=== PATIENT | male | born 1950 | race Caucasian/White ===

== ENCOUNTER 2024-01-22 03:50 | Observation (INO) | payer OTHER ==
[2024-01-22] MEDS ORDERED: KETOROLAC 30 MG/ML INJ ONE ×2 (04:11→12:51)
[2024-01-22] MEDS ORDERED: ONDANSETRON 4 MG/2 ML VIAL ONE ×2 (04:11→12:51)
[2024-01-22] MEDS ORDERED: CEFTRIAXONE 1000 MG/VIAL ONE (04:11)
[2024-01-22] MEDS ORDERED: NA CHLORIDE 0.9% 50 ML ONE (04:12)
[2024-01-22] MEDS ORDERED: NA CHLORIDE 0.9% 1,000 ML ONE (04:12)
[2024-01-22] MEDS ORDERED: METRONIDAZOLE 500mg IVPB 500 MG/100 ML BAG IV ONE (04:12)
[2024-01-22] MEDS ORDERED: MORPHINE 4 MG/ML SYR ONE ×2 (04:12→04:50)
[2024-01-22 04:16] LABS: Absolute Basophils 0.1 K/uL (0-0.5); Absolute Eosinophils 0.2 K/uL (0-0.5); Absolute Lymphocytes (CBC) 2.1 K/uL (0.7-4.9); Absolute Neutrophil 8.1 K/uL (1.8-8.0); Basophils % 0.5 % (0-1.3); Hematocrit 38.7 % (39.6-49.0); Lymphocytes % 18.4 % (15.3-44.8); MCH 30.8 pg (27.0-35.0); MCHC 33.7 g/dL (32.0-36.0); MCV 91.3 fL (80-100); MPV 6.6 fL (7.6-11.3); Monocytes % 8.6 % (3.3-12.3); Neutrophils % 70.5 % (41.7-73.7); Platelets 353 thou/uL (152-406); RBC Red Blood Cell Count 4.23 M/uL (4.33-5.43); Red Cell Distribution Width 13.6 % (12.1-15.2)
[2024-01-22 04:34] LABS: Albumin/Globulin Ratio 1.2 (1.1-1.8); Bilirubin Total 0.3 mg/dL (0.2-1.0); Globulin 3.4 g/dL (2.3-3.5); Protein, Total 7.4 g/dL (6.4-8.2)
--- NOTE | 2024-01-22 06:43 | RAD REPORT ---
EXAM: CT Abdomen and Pelvis With Intravenous Contrast CLINICAL HISTORY: The patient is 73 years old and is Male; Abd pain. TECHNIQUE: Axial computed tomography images of the abdomen and pelvis with intravenous contrast. Sagittal and coronal reformatted images were created and reviewed. This CT exam was performed using one or more of the following dose reduction techniques: automated exposure control, adjustmen t of the mA and/or kV according to patient size, and/or use of iterative reconstruction technique. COMPARISON: CT Abdomen pelvis 08/16/2022 - Report only. FINDINGS: Lung bases: Unremarkable. No mass. No consolidation. ABDOMEN: Liver: Hypodense lesions in the right hepatic lobe, incompletely characterized. The largest measu res 1.5 cm in the inferior right hepatic lobe. 1.5 cm left hepatic simple cyst. Gallbladder and bile ducts: 2.4 cm calcified stone in the gallbladder. Distended gallbladder with pericholecystic fluid. No ductal dilation. Pancreas: No findings to suggest acute pancreatitis. No mass visualized. No ductal dilation. Spleen: Unremarkable. No splenomegaly. Adrenals: Unremarkable. No mass. Kidneys and ureters: Unremarkable. No solid mass. No hydronephrosis. Stomach and bowel: Colonic diverticulosis. No bowel dilatation or obstruction. No bowel wall thickening. PELVIS: Appendix: The visualized appendix is normal. No pericecal inflammation to suggest acute appendici tis. Bladder: Unremarkable. No mass. Reproductive: Unremarkable as visualized. ABDOMEN and PELVIS: Intraperitoneal space: Unremarkable. No free air. No significant fluid collection. 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 Degenerative changes in lumbar spine. No a cute fracture visualized. No dislocation. Soft tissues: Unremarkable. Vasculature: Unremarkable. No abdominal aortic aneurysm. Lymph nodes: No pathologically enlarged lymph nodes. IMPRESSION: 1. Findings consistent with acute cholecystitis. 2. Hypodense lesions in the right hepatic lobe, incompletely characterized. The largest measures 1. 5 cm in the inferior right hepatic lobe. 3. Colonic diverticulosis. 4. Additional non-emergent findings as above. Electronically signed by: Lula Woodson MD 01/22/2024 06:08 AM [facility] [place] Due to temporary technical issues with the PACS/LegalJump reporting system, reports are being chloe d by the in-house radiologist without review as a courtesy to ensure prompt reporting the interpreting radiologist is fully responsible for the content of the report. Transcribed Date/Time: 01/22/2024 6:43 AM
--- NOTE | 2024-01-22 07:33 | EDPHYS ---
Physician Documentation [facility] Name: Joel Nieves Age: 73 yrs Sex: Male : 1950 Arrival Date: 01/22/2024 Time: 03:50 Bed 15 Private MD: ED Physician Frandy Aguilera HPI: 01/21 03:54 This 73 yrs old or Male presents to ER via Unassigned sp4 with complaints of Abdominal Pain. 07:32 73-year-old male presents with acute onset right upper quadrant abdominal pain. 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 - Infectious Disease History:: Denies. - Social history:: Smoking status: Patient reports the use of cigarette tobacco products, cigars, Patient uses alcohol, occasionally. Patient/guardian denies using street drugs. - Family history:: not pertinent. ROS: 07:32 Constitutional: Negative for fever, chills, and weight loss, sp4 07:32 Constitutional: Positive acute right upper quadrant abdominal pain 07:32 All other systems are negative, Exam: 07:32 Constitutional: This is a well developed, well nourished patient who is awake, alert, sp4 and in no acute distress. Head/Face: Normocephalic, atraumatic. Eyes: Pupils equal round and reactive to light, extra-ocular motions intact. Lids and lashes normal. Conjunctiva and sclera are not injected. Cornea within normal limits. Periorbital areas with no swelling, redness, or edema. ENT: Nares patent. No nasal discharge, no septal abnormalities noted. Tympanic membranes are normal and external auditory canals are clear. Oropharynx with no redness, swelling, or masses, exudates, or evidence of obstruction, uvula midline. Mucous membranes moist. Neck: Trachea midline, no thyromegaly or masses palpated, and no cervical lymphadenopathy. Supple, full range of motion without nuchal rigidity, or vertebral point tenderness. Chest/axilla: Normal chest wall appearance and motion. Nontender with no deformity. No lesions are appreciated. Cardiovascular: Regular rate and rhythm with a normal S1 and S2. No gallops, murmurs, or rubs. Normal PMI, no JVD. No pulse deficits. Respiratory: Lungs have equal breath sounds bilaterally, clear to auscultation and percussion. No rales, rhonchi or wheezes noted. No increased work of breathing, no retractions or nasal flaring. Abdomen/GI: Soft, with normal bowel sounds. No distension or tympany. No guarding or rebound. No evidence of tenderness throughout. Back: No spinal tenderness. No costovertebral tenderness. Skin: Warm, dry with normal turgor. Normal color with no rashes, no lesions, and no evidence of cellulitis. MS/ Extremity: Pulses equal, no cyanosis. Neurovascular intact. Full, normal range of motion. Neuro: Awake and alert, GCS 15, oriented to person, place, time, and situation. Cranial nerves II-XII grossly intact. Motor strength 5/5 in all extremities. Sensory grossly intact. Psych: Awake, alert, with orientation to person, place and time. Behavior, mood, and affect are within normal limits Vital Signs: 04:03 BP 188 / 81; Pulse 81; Resp 17 S; Temp 97.7(O); Pulse Ox 99% on R/A; Weight 70.31 kg lg3 (R); Height 5 ft. 10 in. (R); Pain 10/10; 05:45 BP 135 / 67; Pulse 78; Resp 17; Pulse Ox 98% on R/A; dd2 06:25 BP 121 / 66; Pulse 67; Resp 15; Pulse Ox 96% on R/A; dd2 07:15 BP 133 / 73; Pulse 65; Resp 17; Pulse Ox 96% ; ko1 04:03 Body Mass Index 22.24 (70.31 kg, 177.8 cm) lg3 04:03 Pain Scale: Adult lg3 Madyson Coma Score: 04:36 Eye Response: spontaneous(4). Motor Response: obeys commands(6). Verbal Response: dd2 oriented(5). Total: 15. 07:32 Eye Response: spontaneous(4). Motor Response: obeys commands(6). Verbal Response: sp4 oriented(5). Total: 15. MDM: 03:54 Medical Screening Exam initiated sp4 07:21 ED course: EXAM: CTAbdomen and Pelvis With Intravenous Contrast CLINICAL HISTORY: The sp4 patient is 73 years old and is Male; Abd pain. TECHNIQUE: Axial computed tomography images of the abdomen and pelvis with intravenous contrast. Sagittal and coronal reformatted images were created and reviewed. This CT exam was performed using one or more of the following dose reduction techniques: automated exposure control, adjustment of the mA and/or kV according to patient size, and/or use of iterative reconstruction technique. COMPARISON: CTAbdomen pelvis 08/16/2022 - Report only. FINDINGS: Lung bases: Unremarkable. No mass. No consolidation. ABDOMEN: Liver: Hypodense lesions in the right hepatic lobe, incompletely characterized. The largest measures 1.5 cm in the inferior right hepatic lobe. 1.5 cm left hepatic simple cyst. Gallbladder and bile ducts: 2.4 cm calcified stone in the gallbladder. Distended gallbladder with pericholecystic fluid. No ductal dilation. Pancreas: No findings to suggest acute pancreatitis. No mass visualized. No ductal dilation. Spleen: Unremarkable. No splenomegaly. Adrenals: Unremarkable. No mass. Kidneys and ureters: Unremarkable. No solid mass. No hydronephrosis. Stomach and bowel: Colonic diverticulosis. No bowel dilatation or obstruction. No bowel wall thickening. PELVIS: Appendix: The visualized appendix is normal. No pericecal inflammation to suggest acute appendicitis. Bladder: Unremarkable. No mass. Reproductive: Unremarkable as visualized. ABDOMEN and PELVIS: Intraperitoneal space: Unremarkable. No free air. No significant fluid collection. 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 Degenerative changes in lumbar spine. No acute fracture visualized. No dislocation. Soft tissues: Unremarkable. Vasculature: Unremarkable. No abdominal aortic aneurysm. Lymph nodes: No pathologically enlarged lymph nodes. IMPRESSION: 1. Findings consistent with acute cholecystitis. 2. Hypodense lesions in the right hepatic lobe, incompletely characterized. The largest measures 1.5 cm in the inferior right hepatic lobe. 3. Colonic diverticulosis. 4. Additional non-emergent findings as above. Electronically signed by: Lula Woodson MD 01/22/2024 06:08 AM . 07:34 Differential diagnosis: appendicitis, cholecystitis, Cholelithiasis, diverticulitis, sp4 gastritis. Data reviewed: vital signs, nurses notes, lab test result(s), radiologic studies, CT scan. Consideration of Admission/Observation Patient was admitted/placed on observation. Escalation of care including admission/observation considered. Management of patient was discussed with the following: Hospitalist: Kavin EASON . Collection Systems Worker: Yohna EASON . ED course: CT positive for acute cholecystitis. Will request admission with surgical consult. 01/21 03:54 Order name: CBC with Diff; Complete Time: 04:43 sp4 01/21 03:54 Order name: CMP; Complete Time: 04:43 sp4 01/21 03:54 Order name: Lipase; Complete Time: 04:43 sp4 01/21 03:54 Order name: Urinalysis w/ reflexes sp4 01/21 07:57 Order name: Urinalysis w/ reflexes EDMS 01/21 07:57 Order name: CBC with Automated Diff EDMS 01/21 07:57 Order name: CBC with Automated Diff EDMS 01/21 07:57 Order name: Comprehensive Metabolic Panel EDMS 01/21 07:57 Order name: Comprehensive Metabolic Panel EDMS 01/21 07:57 Order name: Magnesium EDMS 01/21 07:57 Order name: Magnesium EDMS 01/21 03:54 Order name: CT Abd/Pelvis - IV Contrast Only sp4 01/21 07:54 Order name: CONS Physician Consult EDMS 01/21 03:54 Order name: IV Saline Lock; Complete Time: 04:16 sp4 01/21 03:54 Order name: Labs collected and sent; Complete Time: 04:16 sp4 01/21 07:34 Order name: NPO; Complete Time: 07:39 sp4 Administered Medications: 04:20 Drug: morphine IVP or IV 4 mg IVP once over 4 mins Route: IVP; Infused Over: 4 mins; dd2 Site: right antecubital; 04:35 Follow up: Response: No adverse reaction dd2 04:35 Follow up: Response: No adverse reaction dd2 04:20 Drug: Ketorolac IVP 15 mg IVP once Route: IVP; Site: right antecubital; dd2 04:35 Follow up: Response: No adverse reaction dd2 04:20 Drug: NS 0.9% IV 1000 ml IV at 1000 ml once; to be given as a bolus over 60 minutes dd2 Route: IV; Rate: 1000 ml; Site: right antecubital; 04:35 Follow up: Response: No adverse reaction dd2 05:20 Follow up: IV Status: Completed infusion; IV Intake: 1000ml dd2 04:20 Drug: Rocephin - Rocephin (cefTRIAXone) IVPB 1 grams IVPB once over 30 mins; (mix in 50 dd2 mL NS) Route: IVPB; Infused Over: 30 mins; Site: right antecubital; 04:35 Follow up: Response: No adverse reaction dd2 04:50 Follow up: IV Status: Completed infusion; IV Intake: 60ml dd2 04:20 Drug: Ondansetron IVP 4 mg IVP once; over 2 minutes Route: IVP; Site: right antecubital;dd2 04:35 Follow up: Response: No adverse reaction dd2 05:00 Drug: metroNIDAZOLE IVPB 500 mg 100 ml IVPB at 200 ml/hr once over 30 mins Volume: 100 dd2 ml; Route: IVPB; Rate: 200 ml/hr; Infused Over: 30 mins; Site: right antecubital; 05:15 Follow up: Response: No adverse reaction dd2 05:30 Follow up: IV Status: Completed infusion; IV Intake: 100ml dd2 05:00 Drug: morphine IVP or IV 4 mg IVP once over 4 mins Route: IVP; Infused Over: 4 mins; dd2 Site: right antecubital; 05:15 Follow up: Response: No adverse reaction dd2 Disposition Summary: 01/22/24 07:32 Hospitalization Ordered Notes: Hospitalization Status: Inpatient Admission sp4 Provider: Chalino Vale [facility] sp[facility] Condition: Stable sp4 Problem: new sp4 Symptoms: have improved sp4 Bed/Room Type: Standard sp4 Room Assignment: 409(01/22/24 08:11) sp Diagnosis - Acute cholecystitis sp4 Forms: - Medication Reconciliation Form sp4 - SBAR form sp4 - Leadership Thank You Letter sp4 Signatures: Dispatcher [employer] EDMS Trina Vela Lacie, RN RN [email or web address] Frandy Aguilera MD MD sp4 SARAH KENT RN RN dd2 Corrections: (The following items were deleted from the chart) 08:11 07:32 sp4 sp
--- NOTE | 2024-01-22 07:33 | ER ---
Nurse's Notes [facility] Name: Joel Nieves Age: 73 yrs Sex: Male : 1950 Arrival Date: 01/22/2024 Time: 03:50 Bed 15 Private MD: Diagnosis: Acute cholecystitis Presentation: 01/21 04:03 Chief complaint: Patient states: middle abdominal pain 11/30 beginning yesterday lg3 afternoon and worsening. denies N/V/D. history of diverticulitis. Coronavirus screen: Client denies travel out of the [place] in the last 14 days. At this time, the client does not indicate any symptoms associated with coronavirus-19. Ebola Screen: No symptoms or risks identified at this time. Initial Sepsis Screen: Does the patient meet any 2 criteria? No. Patient's initial sepsis screen is negative. Does the patient have a suspected source of infection? No. Patient's initial sepsis screen is negative. Risk Assessment: Do you want to hurt yourself or someone else? Patient reports no desire to harm self or others. Onset of symptoms was January 21, 2024. 04:03 Method Of Arrival: Ambulatory lg3 04:03 Acuity: ANABELLA 3 lg3 Triage Assessment: 04:06 General: Appears in no apparent distress. uncomfortable, Behavior is calm, cooperative. lg3 Pain: Complains of pain in abdomen Pain currently is 10 out of 10 on a pain scale. Noted to be grimacing, guarding, resistant to movement. EENT: No deficits noted. No signs and/or symptoms were reported regarding the EENT system. Neuro: No deficits noted. Banks Agitation-Sedation Scale (RASS): 0 - Alert and Calm Level of Consciousness is awake, alert, obeys commands, Oriented to person, place, time, situation. Cardiovascular: No deficits noted. Denies chest pain, shortness of breath, Capillary refill < 3 seconds Clubbing of nail beds is absent JVD is absent Patient's skin is warm and dry. Respiratory: No deficits noted. Airway is patent Respiratory effort is even, unlabored, Respiratory pattern is regular, symmetrical. GI: Abdomen is flat, non-distended, Reports lower abdominal pain, upper abdominal pain. : No signs and/or symptoms were reported regarding the genitourinary system. Derm: No deficits noted. No signs and/or symptoms reported regarding the dermatologic system. Skin is intact, is healthy with good turgor, Skin is dry, Skin is normal, Skin temperature is warm. Musculoskeletal: No signs and/or symptoms reported regarding the musculoskeletal system. Amputation of L BKA. Circulation, motion, and sensation intact. Range of motion: intact in all extremities. 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 - Infectious Disease History:: Denies. - Social history:: Smoking status: Patient reports the use of cigarette tobacco products, cigars, Patient uses alcohol, occasionally. Patient/guardian denies using street drugs. - Family history:: not pertinent. Screenin:36 [facility] ED Fall Risk Assessment (Adult) History of falling in the last 3 months, dd2 including since admission No falls in past 3 months (0 pts) Confusion or Disorientation No (0 pts) Intoxicated or Sedated No (0 pts) Impaired Gait No (0 pts) Mobility Assist Device Used No (0 pt) Altered Elimination No (0 pt) Score/Fall Risk Level 0 - 2 = Low Risk Oriented to surroundings, Maintained a safe environment, Educated pt \T\ family on fall prevention, incl call for assistance when getting out of bed, Assessed \T\ reinforced patient's understanding of fall precautions, Hourly rounding (assess needs \T\ fall precautionary measures) done. Abuse screen: Denies threats or abuse. Nutritional screening: No deficits noted. Tuberculosis screening: No symptoms or risk factors identified. Assessment: 04:36 Reassessment: SEE TRIAGE ASSESSMENT FOR FULL ASSESSMENT. dd2 Vital Signs: 04:03 BP 188 / 81; Pulse 81; Resp 17 S; Temp 97.7(O); Pulse Ox 99% on R/A; Weight 70.31 kg lg3 (R); Height 5 ft. 10 in. (R); Pain 10/10; 05:45 BP 135 / 67; Pulse 78; Resp 17; Pulse Ox 98% on R/A; dd2 06:25 BP 121 / 66; Pulse 67; Resp 15; Pulse Ox 96% on R/A; dd2 07:15 BP 133 / 73; Pulse 65; Resp 17; Pulse Ox 96% ; ko1 04:03 Body Mass Index 22.24 (70.31 kg, 177.8 cm) lg3 04:03 Pain Scale: Adult lg3 Madyson Coma Score: 04:36 Eye Response: spontaneous(4). Motor Response: obeys commands(6). Verbal Response: dd2 oriented(5). Total: 15. 07:32 Eye Response: spontaneous(4). Motor Response: obeys commands(6). Verbal Response: sp4 oriented(5). Total: 15. ED Course: 03:51 Patient arrived in ED. jj6 03:54 Frandy Aguilera MD is Attending Physician. sp4 03:57 SARAH KENT RN is Primary Nurse. dd2 04:06 Triage completed. lg3 04:06 Arm band placed on right wrist. lg3 04:09 Inserted saline lock: 20 gauge in right antecubital area, using aseptic technique. oe Blood collected. Flushed with 10 mL NS. 04:16 CBC with Diff Sent. lg3 04:16 CMP Sent. lg3 04:16 Lipase Sent. lg3 04:36 Patient has correct armband on for positive identification. Placed in gown. Bed in low dd2 position. Call light in reach. Side rails up X 1. Provided Education on: CALL LIGHT, MEDICATIONS, LABS, RADIOLOGY. Client placed on continuous cardiac and pulse oximetry monitoring. NIBP monitoring applied. Door closed. Noise minimized. Warm blanket given. Pillow given. Verbal reassurance given. 04:36 No provider procedures requiring assistance completed. Initial lab(s) drawn, by ED dd2 staff, sent to lab. Patient maintains SpO2 saturation greater than 95% on room air. 05:05 CT Abd/Pelvis - IV Contrast Only In Process Unspecified. EDMS 07:32 Chalino Vale MD is Hospitalizing Provider. sp4 08:21 Patient admitted, IV remains in place. ko1 09:06 Urinalysis w/ reflexes Sent. ko1 Administered Medications: 04:20 Drug: morphine IVP or IV 4 mg IVP once over 4 mins Route: IVP; Infused Over: 4 mins; dd2 Site: right antecubital; 04:35 Follow up: Response: No adverse reaction dd2 04:35 Follow up: Response: No adverse reaction dd2 04:20 Drug: Ketorolac IVP 15 mg IVP once Route: IVP; Site: right antecubital; dd2 04:35 Follow up: Response: No adverse reaction dd2 04:20 Drug: NS 0.9% IV 1000 ml IV at 1000 ml once; to be given as a bolus over 60 minutes dd2 Route: IV; Rate: 1000 ml; Site: right antecubital; 04:35 Follow up: Response: No adverse reaction dd2 05:20 Follow up: IV Status: Completed infusion; IV Intake: 1000ml dd2 04:20 Drug: Rocephin - Rocephin (cefTRIAXone) IVPB 1 grams IVPB once over 30 mins; (mix in 50 dd2 mL NS) Route: IVPB; Infused Over: 30 mins; Site: right antecubital; 04:35 Follow up: Response: No adverse reaction dd2 04:50 Follow up: IV Status: Completed infusion; IV Intake: 60ml dd2 04:20 Drug: Ondansetron IVP 4 mg IVP once; over 2 minutes Route: IVP; Site: right antecubital;dd2 04:35 Follow up: Response: No adverse reaction dd2 05:00 Drug: metroNIDAZOLE IVPB 500 mg 100 ml IVPB at 200 ml/hr once over 30 mins Volume: 100 dd2 ml; Route: IVPB; Rate: 200 ml/hr; Infused Over: 30 mins; Site: right antecubital; 05:15 Follow up: Response: No adverse reaction dd2 05:30 Follow up: IV Status: Completed infusion; IV Intake: 100ml dd2 05:00 Drug: morphine IVP or IV 4 mg IVP once over 4 mins Route: IVP; Infused Over: 4 mins; dd2 Site: right antecubital; 05:15 Follow up: Response: No adverse reaction dd2 Medication: 04:36 VIS not applicable for this client. dd2 Intake: 04:50 IV: 60ml; Total: 60ml. dd2 05:20 IV: 1000ml; Total: 1060ml. dd2 05:30 IV: 100ml; Total: 1160ml. dd2 Outcome: 07:32 Decision to Hospitalize by Provider. sp4 08:21 Admitted to Med/surg accompanied by tech, via wheelchair, room 409, with chart, koAntonio 08:21 Condition: stable 08:21 Instructed on the need for admit, 09:18 Patient left the ED. ko1 Signatures: Dispatcher [employer] EDMS Ibrahima Hanson Lacie, RN RN lg3 Alecia Bostonj6 Ny Rodriguez RN RN ko1 Frandy Aguilera MD MD sp4 SARAH KENT RN RN dd2
--- NOTE | 2024-01-22 07:51 | P.HP ---
Certification for Inpatient Patient admitted to: Observation <KanchanTresa - Last Filed: 01/22/24 15:24> Patient History Date of Service: 01/22/24 Reason for admission: Acute cholecystitis History of Present Illness: 73-year-old with a past medical history of hypertension, hyperlipidemia, presents to the emergency room with abdominal pain. He reports right upper quadrant abdominal pain, he reports daily tobacco use with cigars, daily alcohol use with 3 beers daily. He reports abdominal pain started last night, worse with p.o. intake. No reported nausea vomiting diarrhea. ER evaluation mild leukocytosis WBCs 11.40, mild microcytic anemia 13.0, 38.7, no left shift, mild hyponatremia 130, UA within normal limits. CT reveals acute cholecystitis, plan to admit for acute cholecystitis with surgery to consult. - Past Medical/Surgical History -: Hypertension -: Hyperlipidemia -: Left BKA - Family History Father -: Cancer Notes: Lung CA <Tresa Hemphill - Last Filed: 01/22/24 15:24> Date of Service: 01/22/24 <Chalino Vale - Last Filed: 01/23/24 01:45> Allergies No Known Allergies Allergy (Verified 01/22/24 10:08) Home Medications: Albuterol Sulfate [Albuterol Sulfate Hfa] 2 puff IH Q6HP PRN 01/22/24 Budesonide/Glycopyr/Formoterol [Breztri Aerosphere Inhaler] 2 puff IH BID 01/22/24 Codeine/APAP [Tylenol #3*] 1 tab PO TID PRN 01/22/24 Hydrocodone Bit/Acetaminophen [Hydrocodon-Acetaminoph 7.5-325] 1 tab PO DAILY PRN 01/22/24 Montelukast [Singulair] 10 mg PO DAILY 01/22/24 lisinopriL [Lisinopril] 20 mg PO DAILY 01/22/24 Review of Systems 10-point ROS is otherwise unremarkable General: As per HPI <Tresa Hemphill - Last Filed: 01/22/24 15:24> Physical Examination - Physical Exam General: Alert, In no apparent distress, Oriented x3 HEENT: Atraumatic, Normocephalic Neck: Supple, 2+ carotid pulse no bruit, JVD not distended Respiratory: Clear to auscultation bilaterally, Normal air movement Cardiovascular: No edema, Normal pulses, Regular rate/rhythm, Normal S1 S2 Gastrointestinal: Normal bowel sounds, Other (Right upper quadrant abdominal pain worse with palpitation) Musculoskeletal: No clubbing, No swelling Integumentary: No breakdown, No significant lesion Neurological: Normal speech, Normal strength at 5/5 x4 extr, Sensation intact, Cranial nerves 3-12 intact - Studies Laboratory Data (last 24 hrs) 01/22/24 01/22/24 04:08 04:08 WBC 11.40 H Hgb 13.0 L Hct 38.7 L Plt Count 353 Sodium 130 L Potassium 4.0 BUN 14 Creatinine 0.72 Glucose 113 H Total Bilirubin 0.3 AST 30 ALT 48 Alkaline Phosphatase 92 Lipase 30 <Tresa Hemphill - Last Filed: 01/22/24 15:24> - Studies Laboratory Data (last 24 hrs) 01/22/24 01/22/24 04:08 04:08 WBC 11.40 H Hgb 13.0 L Hct 38.7 L Plt Count 353 Sodium 130 L Potassium 4.0 BUN 14 Creatinine 0.72 Glucose 113 H Total Bilirubin 0.3 AST 30 ALT 48 Alkaline Phosphatase 92 Lipase 30 <Chalino Vale - Last Filed: 01/23/24 01:45> Assessment and Plan - Problems (Diagnosis) (1) Acute cholecystitis Current Visit: Yes Status: Acute (2) Abdominal pain Current Visit: Yes Status: Acute (3) Hypertension Current Visit: Yes Status: Chronic (4) Hyperlipidemia Current Visit: Yes Status: Chronic Qualifiers: Hyperlipidemia type: unspecified Qualified Code(s): E78.5 - Hyperlipidemia, unspecified (5) Tobacco use Current Visit: Yes Status: Acute - Plan Assessment plan Admit to MedSurg, Surgery consult, n.p.o., for surgery to eval IV fluids, IV antibiotics, as needed analgesics, as needed antiemetics Resume home meds for hypertension, hyperlipidemia Full code DVT SCDs Diet advance per surgery Disposition Home independent Discharge Plan: Home - Advance Directives Does patient have a Living Will: No Does patient have a Durable POA for Healthcare: No - Code Status/Comfort Care Code Status: Full Code Critical Care: No Time Spent Managing Pts Care (In Minutes): 55 <Tresa Hemphill - Last Filed: 01/22/24 15:24> Date of Service: 01/22/24 Patient was seen and examined. Events of the last 24 hours have been noted. Spoke with with [facility] regarding patient's clinical picture after evaluating and examining the patient independently. I performed a substantial part of the MDM during this patient's care today. I personally made or approved the documented management plan and acknowledge its risk of complications. I agree with the findings and documentation provided in the MONTEZ's notes. Plan to proceed with laparoscopic cholecystectomy. If patient does well then possible discharge in a.m. Surgery consulted. Patient low risk for cardiopulmonary complications. History of COPD and on inhaler therapy. Monitor in the perioperative period closely. Possible discharge in a.m. <Chalino Vale - Last Filed: 01/23/24 01:45>
[2024-01-22] MEDS ORDERED: ACETAMINOPHEN 500 MG TAB PO PRN (07:53)
[2024-01-22] MEDS ORDERED: ONDANSETRON 4 MG/2 ML VIAL IV PRN (07:53)
[2024-01-22] MEDS ORDERED: SODIUM CHLORIDE 0.9% 10ML INJ IV PRN (08:03)
[2024-01-22 09:20] LABS: Specific Gravity > 1.030 (1.005-1.030); Urine Bilirubin NEGATIVE (Negative); Urine Blood Negative (Negative); Urine Clarity Clear (Clear); Urine Color Light-Yellow (Yellow); Urine Glucose NEGATIVE (Negative); Urine Ketones NEGATIVE (Negative); Urine Microscopic Reflex YN NO UMIC; Urine Nitrite NEGATIVE (Negative); Urine Protein NEGATIVE (Negative); Urine Urobilinogen Normal (Normal); Urine pH 5.5 (5.0-7.0)
[2024-01-22] MEDS: NA CHLORIDE 0.9% 1,000 ML IV SCH (09:55)
[2024-01-22] MEDS: PIPER TAZO 3.375 GM in NA CHLORIDE 0.9% 100 ML IV SCH (09:55)
[2024-01-22] MEDS: PANTOPRAZOLE 40 MG INJ IVP SCH (09:55)
[2024-01-22] MEDS: HYDROMORPHONE HCL 0.5 MG/0.5 ML INJ IV PRN (09:56)
[2024-01-22] MEDS: HYDROMORPHONE HCL 1 MG/ML INJ IV ONE (12:43)
[2024-01-22] MEDS ORDERED: MIDAZOLAM HCL 2 MG/2 ML INJ ONE (12:50)
[2024-01-22] MEDS ORDERED: FENTANYL CITR 100 MCG/2 ML ONE (12:50)
[2024-01-22] MEDS ORDERED: propofoL 200 MG/20 ML VIAL IV ONE (12:50)
[2024-01-22] MEDS ORDERED: LIDOCAINE 1% MPF 5 ML VIAL ONE (12:51)
[2024-01-22] MEDS ORDERED: dexAMETHasone 4 MG/ML VIAL ONE (12:51)
[2024-01-22] MEDS ORDERED: ROCURONIUM 50 MG/5 ML VIAL IV ONE (12:55)
[2024-01-22] MEDS: LIDOCAINE HCL/EPINEPHRINE 20 ML MDV ONE (13:49)
[2024-01-22] MEDS: Ringers Lactate 1,000 ML IV ONE (14:26)
[2024-01-22] MEDS: SUGAMMADEX SODIUM 200 MG/2 ML VIAL IV ONE (14:27)
--- NOTE | 2024-01-22 14:37 | P.OP ---
Preoperative diagnosis: Acute Calculous Cholecystitis Postoperative diagnosis: Acute Calculous Cholecystitis Primary procedure: Laparoscopic Cholecystectomy with ICG Cholangiography Anesthesia: GETA + Local Estimated blood loss: <10cc Specimen: Gallbladder Findings: Distended Hydropic Gallbladder Complications: None Implants: Quin Hemostatic Matrix Powder Transferred to: Recovery Room Condition: Good
[2024-01-22] MEDS ORDERED: HYDROCODONE/APAP 5/325 MG TAB PO PRN (14:42)
[2024-01-22] MEDS: MEPERIDINE HCL 25 MG/ML SYR ONE (15:02)
[2024-01-22] MEDS: HYDROMORPHONE HCL 1 MG/ML INJ ONE (15:03)
--- NOTE | 2024-01-22 15:19 | CON ---
Date of Consultation: 01/22/2024 Brief History Of Present Illness: The patient is a 73-year-old white male who presents with a histor y of abdominal pain beginning in the epigastric and right upper quadrant area on Tuesday. He had intermittent episodes of worsening abdominal pain. He ate very little over the course of the holiday and got progressively worse. The pain became intractable and ultimately buckled him ove r. He ultimately was brought to the emergency room where an examination was performed. He had sever e significant right upper quadrant abdominal pain and a positive Hennessy sign. He additionally had im aging performed during his workup. He states he has had low-grade nausea, inability to tolerate p.o. , decreased p.o. intake, and the abdominal pain has now radiated through to his back in the epigastri c region as well with some radiation down to the right lower quadrant. He has never had similar epis odes before in the past. No sick contacts. No recent travel. Past Medical History: Significant for hypertension, hypercholesterolemia. Past Surgical History: Negative. Home Medications: Include lisinopril. Allergies: NO KNOWN DRUG ALLERGIES. Social History: The patient has occasional use of cigarettes, uses alcohol recreationally. Denies r ecreational drug use. Review of Systems: Ten-point review of systems other than HPI, denies. Physical Examination: Vital Signs: At time of examination, his blood pressure 147/77, pulse 68, respiratory rate 18, tempe rature 98.1, SpO2 98% on room air. General: He is awake, alert, oriented. Psychiatric: Appropriate. Conversive. HEENT: Normocephalic. Sclerae anicteric. Mucous membranes are moist. Oropharynx clear. Neck: Supple. No JVD. Chest: Normal expansion excursion. Cardiovascular: Regular rate and rhythm. Pulmonary: Clear to auscultation bilaterally. Abdomen: Soft with positive right upper quadrant tenderness to palpation. Positive guarding. Posit guerda rebound. Positive Hennessy sign. The radiation of pain is down to the right iliac crest through t he back. He has tenderness on palpation of his back as well in the same vicinity. No hernias apprec iated. Extremities: No clubbing, cyanosis, or edema. Skin: Warm and dry. Laboratory Data: Revealed white blood cell count of 11.4, hemoglobin 13.0, hematocrit of 38.7, plate let count is 353. His sodium 130, potassium 4.0, chloride 101, carbon dioxide is 23, BUN 14, creatin ine 0.7, glucose is 113, calcium 9.6, total bilirubin 0.3, AST 30, ALT 48, alkaline phosphatase is 92 , lipase is 30. Urinalysis was essentially negative. He had imaging performed, which included a CT of the abdomen and pelvis, officially read as findings consistent with acute cholecystitis. There is a 2.4 cm calcified gallstone in the gallbladder with a distended gallbladder with pericholecystic fl uid. There are multiple hyperdense lesion of the right hepatic lobe, large measuring 1.5 cm in the i nferior right hepatic lobe which appeared to be simple cysts. He has colonic diverticulosis. Assessment And Plan: This is a 73-year-old male who comes in with signs and symptoms of acute calcul ous cholecystitis. 1.IV fluid hydration. 2.Antibiotic coverage. 3.I explained the risks, benefits, alternatives laparoscopic possible open cholecystectomy including but not limited to bleeding, infection, damage to the surrounding tissue, need for further operation or procedures, injury to bile ducts, intestines. We will be using indocyanine green cholangiography that he could have a reaction to this and other unforeseen complications in the perioperative period including anesthesia related and non-anesthesia related issues including but not limited to blood cl ots, heart attack, strokes and other unforeseen complications. Patient displayed understanding of the plan and agreed to proceed as indicated. TOI/MEGAN Voice ID: [id number] Report ID: [id number]
--- NOTE | 2024-01-22 18:19 | OP ---
Date of Procedure: 01/22/2024 Surgeon: Yahir Almanzar MD, Preoperative Diagnosis: Acute calculous cholecystitis. Postoperative Diagnosis: Acute calculous cholecystitis. Procedure Performed: Laparoscopic cholecystectomy with indocyanine green cholangiography. Anesthesia: General endotracheal plus local with 1% lidocaine with epinephrine. Estimated Blood Loss: Less than 10 cc. Specimen: Gallbladder. Findings: 1.Distended hydropic gallbladder. 2.Significant dense adhesions. 3.Stone impacted near the neck of gallbladder. Complications: None. Implants: Quin hemostatic matrix powder. Disposition: The patient is transferred to recovery room in good condition. Procedure In Detail: After informed was consent was obtained, patient was brought to the operating r oom, prepped and draped in the usual sterile fashion. After adequate anesthesia was achieved, I anes thetized an area in the supraumbilical position down to subcutaneous tissue. A 5-mm 0-degree optical trocar was introduced in abdomen without incident or complication. Insufflation was obtained to 15 mmHg at this time. There was no injury to vital structures upon entering the abdomen. 2 additional trocars were placed, one in the epigastrium, one in the right upper quadrant. Both of these were sim ilarly anesthetized and sharply incised. A 5 mm trocar was placed under direct vision without incide nt or complication. The umbilical trocar was then upsized to a 12 mm under direct visualization with out incident or complication. At this point, patient was positioned in the head up right-side up pos ition. Ratcheted grasper was attempted to grasp the patient's gallbladder, which was found to be enc ased in omentum. Bovie electrocautery was used to take down the omental attachments off the anterior surface of the gallbladder. At this point, I attempted to grasp the gallbladder, which was then aga in unsuccessful due to the tension of it. I then placed a decompression needle into the fundus of th e gallbladder, decompressing a hydropic appearing fluid, which was brought out and allowed for graspi ng the gallbladder. At this point, I grasped the gallbladder, placed it towards the patient's right shoulder. Dissection continued down the Chiquita pouch of the gallbladder, where it was noted that t he duodenum was in close apposition to the Chiquita pouch of the gallbladder. This was taken down us ing combination of blunt dissection and minimal electrocautery to allow for separation of these struc tures. At this point, I dissected down the Chiquita pouch of the gallbladder to dissect 2 structures , identified both cystic duct and cystic artery. At this point, critical view of safety was obtained with the liver in the posterior window. I then performed indocyanine green cholangiography at this point and confirmed the anatomic structures. There was a somewhat shortened cystic duct, but adequat e length at this point. I then placed double titanium clips, double on the proximal side and singly on the distal side of both cystic duct and cystic artery. At this point, Endo Aaliyah were used to li gate these 2 structures. The gallbladder was then removed from the hepatic fossa without incident or complication. It did require some fulguration at the midportion of the liver bed at this point. Ga llbladder was then placed in EndoCatch bag, removed from the umbilical trocar after dilating the umbi licus as the axilla was larger than the usual incision. At this point, the gallbladder was sent off for pathologic examination. At this point, the abdomen was re-insufflated at the point. The abdomen was copiously irrigated. Hemostatic maneuvers were required on the lateral aspect of the mid to dis ray hepatic fossa. Electrocautery was performed at this point with good hemostasis. I then irrigate d the area copiously and good hemostasis was achieved. Clips were found to be in good anatomic posit ion. There was evidence of leakage using indocyanine green cholangiography. At the end of procedure , clips were found to be in good anatomic position. At this point, I suctioned out the remaining eff luent, sprayed Quin hemostatic powder into the subhepatic space, and the patient was positioned edilberto k in a neutral position. At this point, I dissected down the remaining effluent. The umbilical troc ar site was then closed using a Branden-Trisha suture passer with a #1 Vicryl interrupted fashion wi th good approximation of tissues. The abdomen was then desufflated under direct visualization withou t incident or complication. Remainder of trocars were removed. All skin incisions were then copious ly irrigated and closed with a 4-0 Monocryl in a running fashion. Dermabond was placed over top. Th e patient tolerated the procedure well without incident or complication, transferred to PACU in good condition. All counts were correct at the end of the case. TK/MODL Voice ID: [id number] Report ID: [id number]
[2024-01-22 22:26] VITALS: O2SAT 99
[2024-01-22] MEDS: ZOLPIDEM TARTRATE 5 MG TABLET PO PRN (22:29)
[2024-01-23 05:55] LABS: Absolute Lymphocytes (CBC) 0.9 K/uL (0.7-4.9); Absolute Monocytes 1.1 K/uL (0.1-1.3); Basophils % 0.1 % (0-1.3); Hematocrit 31.6 % (39.6-49.0); Hemoglobin 10.3 g/dL (13.6-17.9); Lymphocytes % 7.8 % (15.3-44.8); MCH 30.4 pg (27.0-35.0); MCHC 32.7 g/dL (32.0-36.0); MPV 7.3 fL (7.6-11.3); Monocytes % 9.3 % (3.3-12.3); Neutrophils % 82.8 % (41.7-73.7); Platelets 276 thou/uL (152-406); Red Cell Distribution Width 13.2 % (12.1-15.2)
[2024-01-23 06:30] LABS: Albumin 2.8 g/dL (3.4-5.0); Albumin/Globulin Ratio 0.9 (1.1-1.8); Anion Gap 9.4 mEq/L (5.0-15.0); Bilirubin Total 0.5 mg/dL (0.2-1.0); Magnesium 1.9 mg/dL (1.6-2.4); Potassium 4.4 mEq/L (3.5-5.1); Protein, Total 5.8 g/dL (6.4-8.2)
--- NOTE | 2024-01-23 08:57 | P.DS ---
Admission Date: 01/22/24 Discharge Date: 01/23/24 Disposition: ROUTINE DISCHARGE Discharge Condition: GOOD Reason for Admission: Acute cholecystitis Brief History of Present Illness: 73-year-old with a past medical history of hypertension, hyperlipidemia, presents to the emergency room with right upper quadrant abdominal pain for 3 days. He was diagnosed with a calculus acute calculus cholecystitis by CT scan and admitted on general medical floor on January 22, 2024. Hospital Course: He underwent laparoscopic cholecystectomy with intraoperative cholangiogram On the same day. His postoperative course was uneventful, his bowel bowel activity returned, he was tolerating oral diet well, his abdominal pain was reasonably controlled with oral analgesics. Patient was discharged home the following day. He is to follow-up with general surgeon after discharge. Discharge diagnosis #1 acute calculous cholecystitis #2 stable COPD Vital Signs/Physical Exam: Temp Pulse Resp BP Pulse Ox 97.5 F 99 H 16 144/76 H 99 01/23/24 04:00 01/23/24 04:00 01/23/24 04:08 01/23/24 04:00 01/23/24 04:08 Other Physical/Emotional Findings: - Physical Exam. General: Not acutely ill looking, in no apparent distress,. HEENT: Normocephalic, atraumatic,. Neck: Supple, without JVD or goiter or thyroid mass. Respiratory: Normal breathing effort, clear to auscultation bilaterally, no crackles no wheezing or rhonchi. Cardiovascular: Regular rate and rhythm, S1, S2 normal, no murmur no gallop. Gastrointestinal: Normal bowel sounds, nondistended, mild tender, dried and clean laparoscopic operation wounds. No masses, no hepatosplenomegaly. Musculoskeletal: No clubbing, No peripheral edema. Integumentary: No rashes. Lymphatics: No axilla or cervical lymphadenopathy. Neurology; alert awake oriented x3, no focal neurologic deficit Laboratory Data at Discharge: WBC 12.10 thou/uL (4.3-10.9) H 01/23/24 05:23 Hgb 10.3 g/dL (13.6-17.9) L D 01/23/24 05:23 Hct 31.6 % (39.6-49.0) L 01/23/24 05:23 Plt Count 276 thou/uL (152-406) 01/23/24 05:23 Sodium 134 mEq/L (136-145) L D 01/23/24 05:23 Potassium 4.4 mEq/L (3.5-5.1) 01/23/24 05:23 BUN 7 mg/dL (7-18) 01/23/24 05:23 Creatinine 0.70 mg/dL (0.70-1.30) 01/23/24 05:23 Glucose 119 mg/dL (74-106) H 01/23/24 05:23 Magnesium 1.9 mg/dL (1.6-2.4) 01/23/24 05:23 Total Bilirubin 0.5 mg/dL (0.2-1.0) 01/23/24 05:23 AST 71 U/L (15-37) H 01/23/24 05:23 ALT 75 U/L (16-61) H 01/23/24 05:23 Alkaline Phosphatase 76 U/L (45-117) 01/23/24 05:23 Lipase 30 U/L (13-75) 01/22/24 04:08 Home Medications: Albuterol Sulfate [Albuterol Sulfate Hfa] 2 puff IH Q6HP PRN 01/22/24 Budesonide/Glycopyr/Formoterol [Breztri Aerosphere Inhaler] 2 puff IH BID 01/22/24 Codeine/APAP [Tylenol #3*] 1 tab PO TID PRN 01/22/24 Hydrocodone Bit/Acetaminophen [Hydrocodon-Acetaminoph 7.5-325] 1 tab PO DAILY PRN 01/22/24 Montelukast [Singulair*] 10 mg PO DAILY 01/22/24 lisinopriL [Lisinopril] 20 mg PO DAILY 01/22/24 Ondansetron [Ondansetron Odt] 4 mg PO TID PRN 5 Days #15 01/23/24 New Medications: Ondansetron [Ondansetron Odt] 4 mg PO TID PRN 5 Days #15 PRN Reason: Nausea / Vomiting Diet: [place] Activity: No lifting more than 10 lbs Followup: Yahir Almanzar MD [ACTIVE - CAN ADMIT] - 1-2 Weeks Ilya Swain MD [Primary Care Provider] - 1-2 Weeks
[2024-01-23 09:12] VITALS: BP 124/63; TEMP 97.9; BMI 34.4
== END 2024-01-23 10:15 | disposition home or self-care (01) ==
LOC: ER 03:50 → 2ND 07:50 → 4TH 07:50 → UNDOADMOB 07:50
PROVIDERS: ADMIT Hospitalist; ATTEND Internal Medicine
PROC: BF50200 Other Imaging of Bile Ducts using Fluorescing Agent, Indocyanine Green Dye, Intraoperative (ICD-10-PCS; 2024-01-22)
PROC: 0FT44ZZ Resection of Gallbladder, Percutaneous Endoscopic Approach (ICD-10-PCS; principal; 2024-01-22 13:30)
DX: K80.00 Calculus of gallbladder with acute cholecystitis without obstruction (principal); I10 Essential (primary) hypertension; E78.5 Hyperlipidemia, unspecified; F17.210 Nicotine dependence, cigarettes, uncomplicated; F10.90 Alcohol use, unspecified, uncomplicated; E78.00 Pure hypercholesterolemia, unspecified
CPT/HCPCS: 96365; 96367; 85025 ×2; 36415 ×2; 83735; 88304; 81003; 83690; 80053 ×2; 74177; 96375; 99285; 47563; Q9967; J2704; J1100; J2003; J2543 ×3; J2470 ×3; J2250; J3010; J2175; J1171 ×5; J2405 ×2; G0378 ×4; J7120; J7030 ×3; J0696

== ENCOUNTER 2024-05-18 12:48 | Emergency (ER) | payer OTHER ==
--- OUTSIDE RECORDS SUMMARY | 2024-05-18 13:02 | XMS REPORT | Continuity of Care Document ---
Author Name Unknown Address [address] [facility] [address] [place] [address] Organization [facility] [place] Address [address] [facility] [place] [address] Care Team Providers Care Primary Care Pediatrician Name Role Phone Valentino Patricio MD Primary Care Physician SERENA CENTENO Attending Clinician Unavailable ILYA SWAIN Attending Clinician Unavailable Ilya Swain MD Attending Clinician + [phone] Sandy Gonzalez LVN Attending Clinician Unavailabl e Lab, Ang - Db Attending Clinician Unavailable Kenton EASON, Sendkarolina K.H. Attending Clinician + [phone] ROSSI HAINES K.H. Attending Clinician Unavailriki Haines MD Sendkarolina K.H. Attending Clinician [phone] Lab, Ang Griselda Coet Attending Clinician Unavailable Ilya Swain MD Attending Clinician + [phone] Alanis Crow Attending Clinician + [phone] ALANIS GARRETT Attending Clinician Unavailable Doctor Unassigned, [place] Attending Clinician U ANA Talbot Attending Clinician Ana La MD Attending Clinician [phone], [facility] Attending Clinician Unavailable NICA MATT Attending Clinician Unavailable Sheila Griffin MD Attending Clinician [phone] Nica Matt MD Attending Clinician +[phone] Darius Be Attending Clinician [phone] Unknown, Attending Attending Clinician Unavailab DARIUS Christianson Attending Clinician Unavailable Gab SHEFFIELD, Ayaka Attending Clinician [phone] AYAKA DE GUZMAN Attending Clinician Unavailable DEMETRIO SPARROW Attending Clinician Unavailable Love SENIOR ACCOUNTING SPECIALIST, Simon S Attending Clinician Maximo Ellis AIRPORT SHUTTLE DRIVER, Paula Attending Clinician [phone] PAULA ELLIS Attending Clinician Unavailable Provider, [facility] Attending Clinician Un available Pob, [facility] Main Attending Clinician Unavaildorinda HAINES SENDKAROLINA K.HTano Admitting Clinician UnavailNICA Schaeffer Admitting Clinician Unavailable Nica Matt MD Admitting Clinician [phone] Payers Payer Name Policy Type Policy Number Effective Date Expirati on Date Source Problems Condition Name Condition Details Condition Category Status Onset Date Resolution Date Last Treatment Date Treating Clinician Comments Source Elevated brain natriureti c peptide (BNP) level Elevated brain natriureti c peptide (BNP) level Disease Active 2022-02 00:00: 00 [facility] Acute on chronic diastolic CHF (congestiv e heart failure), NYHA class 3 Acute on chronic diastolic CHF (congestiv e heart failure), NYHA class 3 Disease Active 2022-02 00:00: 00 [facility] Dyslipidem ia Dyslipidem ia Disease Active 2022-02 00:00: 00 [facility] Elevated brain natriureti c peptide (BNP) level Elevated brain natriureti c peptide (BNP) level Disease Active 2022-02 00:00: 00 [facility] Dyspnea, unspecifie d type Dyspnea, unspecifie d type Disease Active 2022-02 00:00: 00 [facility] Hx of diverticul itis of colon Hx of diverticul itis of colon Disease Active 2022-02 00:00: 00 [facility] Melena Melena Disease Active 2022-02 00:00: 00 [facility] Allergy, initial encounter Allergy, initial encounter Disease Active 2022-02 00:00: 00 [facility] Lower abdominal pain Lower abdominal pain Disease Active 2022-02 00:00: 00 [facility] Cold sore Cold sore Disease Active 07-05 00:00: 00 [facility] Mild hyperchole sterolemia Mild hyperchole sterolemia Disease Active 2021-02 012 00:00: 00 [facility] Elevated ALT measuremen t Elevated ALT measuremen t Disease Active 05-05 00:00: 00 [facility] Essential hypertensi on Essential hypertensi on Disease Active 07-24 00:00: 00 [facility] Abnormal ECG Abnormal ECG Disease Active 07-24 00:00: 00 [facility] Bronchitis Bronchitis Disease Active 10-15 00:00: 00 [facility] Other seasonal allergic rhinitis Other seasonal allergic rhinitis Disease Active 10-15 00:00: 00 [facility] Depression Depression Disease Active 2014-02 00:00: 00 [facility] CERVICAL DISC DISPLACEME NT,STENOSI S CERVICAL DISC DISPLACEME NT,STENOSI S Active 05/29/2014 [facility] Diagnosis Active 05-29 00:00: 00 2014-06-14 14:56:00 [place] Amputation above-knee (procedure ) Amputation above-knee (procedure ) Resolved Problem 06/18/2014 [facility] Problem Resolve d 2014-06-18 00:16:06 [place] Cervical spine - painful on movement (finding) Cervical spine - painful on movement (finding) Resolved Problem 06/18/2014 [facility] Problem Resolve d 2014-06-18 00:16:06 [place] ADMINISTRT VE ENCOUNT NOS ADMINISTRT VE ENCOUNT NOS Active [facility] Diagnosis Active 2014-06-14 14:56:00 [place] Allergies, Adverse Reactions, Alerts Allergy Name Allergy Type Status Severity Reaction(s) Onset Date Inactive Date Treating Clinician Comments Source NO KNOWN ALLERGIE S Drug Class Active [facility] Social History Social Habit Start Date Stop Date Quantity Comments Source Gender identity [facility] Sexual orientation [facility] History SDOH Alcohol Frequency [facility] History SDOH Alcohol Std Drinks [facility] History SDOH Alcohol Binge [facility] Alcoholic beverage intake 2024-04-11 00:00:00 2024-04-11 00:00:00 .29 /d [facility] Tobacco use and exposure 2023-11-09 00:00:00 2023-11-09 00:00:00 Smokeless tobacco non-user [facility] Alcohol intake 2023-06-23 00:00:00 2023-06-23 00:00:00 .29 /d [facility] History of Social function 2023-06-16 00:00:00 2023-06-16 00:00:00 [facility] Exposure to SARS-CoV-2 (event) 2022-07-03 00:00:00 2022-07-13 09:03:00 Not sure [facility] Alcohol Comment 2014-12-27 00:00:00 2014-12-27 00:00:00 daily [facility] Social History 2014-06-14 20:02:37 2014-06-14 20:02:37 [facility] History of tobacco use 2014-02-26 00:00:00 Cigarette Smoker [facility] Sex assigned at 1950 00:00:00 1950 00:00:00 [facility] Smoking Status Start Date Stop Date Source Ex-smoker 2023-11-09 00:00:00 2023-11-09 00[facility]00[facility] Ordered Medication Name Filled Medication Name Start Date Stop Date Current Medication? Ordering Clinician Indication Dosage Frequency Signature (SIG) Comments Components Source Trelegy Ellipta 100 mcg-62.5 mcg-25 mcg powder for inhalation - 00:00: 00 Yes 1mcg Sameer Garibay atorvastati n 20 mg tablet - 00:00: 00 Yes 1mg Sameer Garibay acetaminoph en 300 mg-codeine 30 mg tablet 2- 00:00: 00 Yes mg Sameerdevi Garibay mirtazapine 15 mg tablet 2- 00:00: 00 Yes mg Sameerdevi Garibay mirtazapine 15 mg tablet 06 00:00: 00 Yes [id number] 15mg Take 1 tablet by mouth at bedtime. [facility] lisinopril 20 mg tablet 03-15 00:00: 00 Yes mg Sameer Garibay lisinopriL 20 mg tablet 03-15 00:00: 00 Yes [id number] 20mg Take 1 tablet by mouth every morning. [facility] albuterol sulfate HFA 90 mcg/actuati on aerosol inhaler 02-25 00:00: 00 Yes mcg/act uation Sameer Garibay MONTELUKAST 10 mg tablet 2023-02 00:00: 00 04-09 00:00 :00 No [id number] 10mg TAKE 1 TABLET BY MOUTH IN THE MORNING [facility] lisinopriL 20 mg tablet 2023-02 00:00: 00 03-15 00:00 :00 No [id number] 20mg Take 1 tablet by mouth every morning. [facility] montelukast 10 mg tablet 11-14 00:00: 00 Yes mg Sameer Garibay MONTELUKAST 10 mg tablet 11-14 00:00: 00 01-29 00:00 :00 No [id number] 10mg TAKE 1 TABLET BY MOUTH IN THE MORNING [facility] metoprolol succinate XL 25 mg 24 hr tablet 11-08 15:43: 49 04-09 00:00 :00 No 25mg Take 1 tablet by mouth every morning. [facility] lisinopriL 10 mg tablet 11-08 00:00: 00 12-08 00:00 :00 No [id number] 20mg Take 2 tablets by mouth every morning. [facility] atorvastati n 20 mg tablet 10-18 00:00: 00 Yes [id number] 40mg Take 2 tablets by mouth at bedtime. Please do fasting labs [facility] LISINOPRIL 10 mg tablet 10-16 00:00: 00 11-08 00:00 :00 No [id number] 10mg TAKE 1 TABLET BY MOUTH EVERY MORNING [facility] LISINOPRIL 10 mg tablet 08-07 00:00: 00 Yes [id number] 10mg TAKE 1 TABLET BY MOUTH EVERY MORNING [facility] atorvastati n 20 mg tablet 08-07 00:00: 00 10-18 00:00 :00 No [id number] 20mg Take 1 tablet by mouth at bedtime. Please do fasting labs [facility] montelukast 10 mg tablet 07-14 00:00: 00 11-14 00:00 :00 No [id number] 10mg TAKE 1 TABLET BY MOUTH IN THE MORNING [facility] predniSONE 20 mg tablet 06-22 00:00: 00 04-09 00:00 :00 No [id number] 20mg Take 1 tablet by mouth in the morning. [facility] amoxicillin 500 mg capsule 06-22 00:00: 00 04-09 00:00 :00 No [id number] 500mg Take 1 capsule by mouth in the morning and 1 capsule at noon and 1 capsule in the evening. [facility] azithromyci n 250 mg tablet 06-21 00:00: 00 04-09 00:00 :00 No [id number] 250mg Take 1 tablet by mouth in the morning. Take 500 mg day 1, then 250 mg days 2 to 5. [facility] hydroCHLORO thiazide 12.5 mg tablet 06-15 09:41: 45 Yes TAKE 1 TABLET BY MOUTH EVERY MORNING WITH LISINOPRIL AT THE SAME TIME [facility] methylPREDN ISolone (MEDROL, FLORENCIO,) 4 mg tablets 06-15 00:00: 00 04-09 00:00 :00 No [id number] Take by mouth SEE-INSTRU CTIONS. follow package directions [facility] azelastine 137 mcg (0.1 %) nasal spray 06-15 00:00: 00 04-09 00:00 :00 No [id number] 1{spray } Use 1 [place] in each nostril in the morning and 1 [place] in the evening. Use in each nostril as directed [facility] montelukast 10 mg tablet 4-25 00:00: 00 07-14 00:00 :00 No [id number] 10mg Take 1 tablet by mouth in the morning. [facility] LISINOPRIL 10 mg tablet 3-19 00:00: 00 08-07 00:00 :00 No [id number] 10mg TAKE 1 TABLET BY MOUTH EVERY MORNING [facility] atorvastati n 20 mg tablet - 00:00: 00 08-07 00:00 :00 No [id number] 20mg Take 1 tablet by mouth at bedtime. [facility] metoprolol tartrate (LOPRESSOR) tablet 50 mg 04-20 15:30: 00 04-20 14:55 :00 No [id number] 50mg 50 mg, Oral, ONCE, 1 dose, On Tue04/20/23 at 0930, Routine [facility] nitroglycer in (NITROSTAT) sublingual tablet 0.8 mg 04-20 15:30: 00 04-20 15:10 :00 No [id number] .8mg 0.8 mg, Sublingual , ONCE, 1 dose, On Tue04/20/23 at 0930, Routine [facility] iopamidol (ISOVUE 370-500 mL) injection 70 mL 04-20 15:15: 00 04-20 15:11 :00 No [id number] 70mL 70 mL, Intravenou s, ONCE, 1 dose, On Tue04/20/23 at 0915, Routine [facility] bromphenira mine-pseudo ephedrine-D M (BROMFED DM) 230-10 mg/5 mL syrup 2-14 00:00: 00 Yes [id number] 5mL Take 5 mL by mouth 4 (four) times daily as needed for Cold symptoms. [facility] benzonatate 200 mg capsule 2- 00:00: 00 06-15 00:00 :00 No [id number] 200mg Take 1 capsule by mouth 3 (three) times daily as needed for Cough. [facility] furosemide 40 mg tablet 1-09 00:00: 00 04-09 00:00 :00 No 40mg Take 1 tablet by mouth as needed for Other (Ed[facility]). [facility] aspirin 81 mg chewable tablet 2022-02 00:00: 00 Yes [id number] 162mg Take 2 tablets by mouth in the morning. [facility] ity [facility] spironolact one (ALDACTONE) tablet 25 mg 2022-02 15:00: 00 Yes 25mg 25 mg, Oral, DAILY, First dose on 02/12/23 at 0900, Until Discontinu ed, [facility] atorvast[facility] (LIPITOR) tablet 40 mg 2022-02 15:00: 00 Yes 40mg 40 mg, Oral, DAILY, First dose (after last modificati on) on 02/12/23 at 0900, Until Discontinu ed, Routine [facility] aspirin chewable tablet 162 mg 2022-02 15:00: 00 Yes 162mg 162 mg, Oral, DAILY, First dose on 02/12/23 at 0900, Until Discontinu ed, Routine [facility] enoxaparin (LOVENOX) injection 40 mg 2022-02 15:00: 00 Yes 40mg 40 mg, Subcutaneo us, DAILY, First dose on 02/12/23 at 0900, Until Discontinu ed, Routine [facility] losartan (COZAAR) tablet 50 mg 2022-02 14:00: 00 Yes 50mg 50 mg, Oral, BID, First dose on 02/12/23 at 0800, Until Discontinu ed, Routine [facility] metoprolol tartrate (LOPRESSOR) tablet 50 mg 2022-02 14:00: 00 Yes 50mg 50 mg, Oral, BID, First dose on 02/12/23 at 0800, Until Discontinu ed, Routine [facility] gabapentin (NEURONTIN) capsule 300 mg 2022-02 14:00: 00 Yes 300mg 300 mg, Oral, TID, First dose on Tue02/12/23 at 0800, Until Discontinu ed, Routine [facility] acetaminoph en-codeine (TYLENOL #3) 300-30 mg tablet 1 tablet 2022-02 14:00: 00 Yes 1{tbl} 1 tablet, Oral, TID, First dose on Tue02/12/23 at 0800, Until Discontinu ed, Routine [facility] furosemide (LASIX) injection 40 mg 2022-02 14:00: 00 Yes 40mg 40 mg, Slow IV Push, BID MEALS, First dose on Tue02/12/23 at 0800, Until Discontinu ed, [facility] KCL (KLOR-CON M20) tablet 20 mEq 2022-02 12:15: 00 02-12 12:14 :00 No 20meq 20 mEq, Oral, ONCE, 1 dose, On Tue02/12/23 at 0615, Routine [facility] metoprolol (LOPRESSOR) injection 5 mg 2022-02 05:15: 00 02-12 04:54 :00 No 5mg 5 mg, Slow IV Push, ONCE, 1 dose, On Tue02/11/23 at 2315, Routine [facility] HYDROcodone -acetaminop hen (NORCO 5) 5-325 mg tablet 1 tablet 2022-02 04:21: 25 Yes 1{tbl} 1 tablet, Oral, Q6HPRN, Starting on Tue02/11/23 at 2221, Until Discontinu ed, Pain (scale 7-10) [facility] albuterol (VENTOLIN) inhaler 2 Puff 2022-02 04:20: 38 Yes 2{puff} 2 Puff, Inhalation , Q6HPRN, Starting on Tue02/11/23 at 2220, Until Discontinu ed, Routine, Wheezing [facility] KCL (KLOR-CON M20) tablet 40 mEq 2022-02 02:15: 00 02-12 01:50 :00 No 40meq 40 mEq, Oral, ONCE, 1 dose, On Tue02/11/23 at 2015, Routine [facility] lisinopriL (PRINIVIL,Z ESTRIL) tablet 10 mg 2022-02 02:00: 00 02-12 04:22 :04 No 10mg 10 mg, Oral, BID, First dose on Tue02/11/23 at 2000, Until Discontinu ed, Routine [facility] carvediloL (COREG) tablet 6.25 mg 2022-02 01:45: 00 02-12 04:22 :04 No 6.25mg 6.25 mg, Oral, BID MEALS, First dose on Tue02/11/23 at 1945, Until Discontinu ed, Routine [facility] ondansetron (ZOFRAN (PF)) injection 4 mg 2022-02 00:07: 06 Yes 4mg 4 mg, Slow IV Push, Q6HPRN, Starting on Tue02/11/23 at 1807, Until Discontinu ed, Routine, Nausea and Vomiting (N/V) [facility] acetaminoph en (TYLENOL) tablet 650 mg 2022-02 00:05: 31 Yes 650mg 650 mg, Oral, Q6HPRN, Starting on Tue02/11/23 at 1805, Until Discontinu ed, Routine, Pain (scale 1-3) [facility] KCL 10 mEq tablet 2022-02 00:00: 00 03-15 05:59 :00 No [id number] 40meq Take 4 tablets by mouth in the morning for 30 days. [facility] metoprolol succinate XL 25 mg 24 hr tablet 2022-02 00:00: 00 03-15 05:59 :00 No [id number] 25mg Take 1 tablet by mouth in the morning for 30 days. [facility] furosemide 40 mg tablet 2022-02 00:00: 00 03-01 00:00 :00 No [id number] 40mg Take 1 tablet by mouth every morning and evening for 30 days. [facility] furosemide (LASIX) injection 40 mg 2022-02 21:45: 00 02-11 21:53 :00 No 40mg 40 mg, IV Push, ONCE, 1 dose, On Tue02/11/23 at 1545, MISSAEL [facility] LISINOPRIL 10 mg tablet 2022-02 00:00: 00 05-09 00:00 :00 No [id number] 10mg TAKE 1 TABLET BY MOUTH EVERY MORNING [facility] ATORVASTATI N 10 mg tablet 2022-02 00:00: 00 05-01 00:00 :00 No [id number] 10mg TAKE 1 TABLET BY MOUTH IN THE MORNING [facility] PANTOPRAZOL E 40 mg EC tablet 2022-02 00:00: 00 02-11 00:00 :00 No [id number] 40mg TAKE 1 TABLET BY MOUTH IN THE MORNING [facility] HYDROCHLORO THIAZIDE 12.5 mg tablet 2022-02 00:00: 00 02-12 00:00 :00 No [id number] TAKE 1 TABLET BY MOUTH EVERY MORNING WITH LISINOPRIL 10 MG AT THE SAME TIME. [facility] montelukast 10 mg tablet 2022-02 00:00: 00 02-11 00:00 :00 No [id number] 10mg Take 1 tablet by mouth in the morning. [facility] amoxicillin -clavulanat e (AUGMENTIN) 875-125 mg per tablet 2022-02 00:00: 00 01-06 05:59 :00 No [id number] 1{tbl} Take 1 tablet by mouth in the morning and 1 tablet in the evening. Do all this for 7 days. [facility] LISINOPRIL 10 mg tablet 11-11 00:00: 00 02-09 00:00 :00 No [id number] TAKE 1 TABLET BY MOUTH EVERY MORNING. LABS NEEDED FOR FURTHER REFILLS [facility] hydroCHLORO thiazide 12.5 mg tablet 10-26 00:00: 00 02-01 00:00 :00 No [id number] TAKE 1 TABLET BY MOUTH EVERY MORNING WITH LISINOPRIL 10 MG AT THE SAME TIME [facility] PANTOPRAZOL E 40 mg EC tablet 9-04 00:00: 00 02-09 00:00 :00 No [id number] 40mg TAKE 1 TABLET BY MOUTH IN THE MORNING [facility] ATORVASTATI N 10 mg tablet - 00:00: 00 02-09 00:00 :00 No [id number] 10mg TAKE 1 TABLET BY MOUTH IN THE MORNING [facility] acyclovir 5 % ointment 08-26 00:00: 00 02-11 00:00 :00 No [id number] Apply to area(s) 5 (five) times daily. [facility] HYDROcodone -acetaminop hen 7.5-325 mg per tablet 08-23 00:00: 00 Yes TAKE 1 TABLET BY MOUTH EVERY DAY NEEDED FOR 28 DAYS [facility] acetaminoph en-codeine 300-30 mg tablet 08-23 00:00: 00 04-09 00:00 :00 No 1{tbl} Take 1 tablet by mouth in the morning and 1 tablet at noon and 1 tablet in the evening. [facility] ondansetron 8 mg disintegrat ing tablet 08-17 00:00: 00 02-11 00:00 :00 No DISSOLVE ONE TABLET BY MOUTH EVERY 12 HOURS NEEDED FOR NAUSEA AND VOMITING [facility] dicyclomine 20 mg tablet 08-17 00:00: 00 02-11 00:00 :00 No TAKE 1 TABLET BY MOUTH EVERY 12 HOURS NEEDED FOR ABDOMINAL CRAMPS [facility] ciprofloxac in HCl 500 mg tablet 08-17 00:00: 00 02-11 00:00 :00 No TAKE 1 TABLET BY MOUTH EVERY 12 HOURS FOR 5 DAYS [facility] metroNIDAZO LE 500 mg tablet 08-17 00:00: 12-29 00:00 :00 No TAKE 1 TABLET BY MOUTH EVERY 12 HOURS FOR 5 DAYS [facility] BREZTRI AEROSPHERE 160-9-4.8 mcg/actuati on HFAA 08-07 00:00: 00 Yes 2{puff} Take 2 Puffs by mouth in the morning and 2 Puffs in the evening. [facility] valACYclovi r 1 gram tablet 07-27 00:00: 00 02-11 00:00 :00 No [id number] 1g Take 1 tablet by mouth in the morning and 1 tablet in the evening. 2 tablets PO Q12hrs x 1 day [facility] triamcinolo ne acetonide 0.1 % dental paste 07-14 00:00: 00 02-11 00:00 :00 No [id number] by Dental route 2 (two) times daily. [facility] PANTOPRAZOL E 40 mg EC tablet 07-14 00:00: 00 10-25 00:00 :00 No [id number] 40mg TAKE 1 TABLET BY MOUTH IN THE MORNING [facility] valACYclovi r 1 gram tablet -15 00:00: 00 07-27 00:00 :00 No [id number] 2 tablets PO Q12hrs x 1 day [facility] hydroCHLORO thiazide 12.5 mg tablet 4-20 00:00: 00 10-26 00:00 :00 No [id number] TAKE 1 TABLET BY MOUTH EVERY MORNING WITH LISINOPRIL 10MG AT THE SAME TIME [facility] ADVAIR DISKUS 250-50 mcg/dose inhalation disk 3-10 00:00: 00 02-12 00:00 :00 No INHALE 1 PUFF BY MOUTH TWICE DAILY [facility] atorvastati n 10 mg tablet 1-12 00:00: 00 08-31 00:00 :00 No [id number] 10mg TAKE 1 TABLET BY MOUTH IN THE MORNING [facility] lisinopriL 10 mg tablet 2021-02 0-18 00:00: 00 11-11 00:00 :00 No [id number] 10mg Take 1 tablet by mouth in the morning. Labs needed for further refills. [facility] hydroCHLORO thiazide 12.5 mg tablet 2021-02 0-18 00:00: 00 06-10 00:00 :00 No [id number] TAKE ONE TABLET BY MOUTH EVERY MORNING WITH LISINOPRIL 10 MG AT THE SAME TIME [facility] atorvastati n 10 mg tablet 2021-02 00:00: 00 03-04 00:00 :00 No [id number] 10mg Take 1 tablet by mouth in the morning. [facility] atorvastati n 10 mg tablet 10-30 00:00: 00 12-08 00:00 :00 No 10mg Take 10 mg by mouth in the morning. [facility] hydroCHLORO thiazide 12.5 mg tablet 06-10 00:00: 00 12-08 00:00 :00 No [id number] TAKE ONE TABLET BY MOUTH EVERY MORNING WITH LISINOPRIL 10 MG AT THE SAME TIME [facility] albuterol (VENTOLIN HFA) 90 mcg/actuati on inhaler 2020-02 00:00: 00 03-09 05:59 :00 No [id number] 2{puff} Inhale 2 Puffs every 6 (six) hours as needed for Bronchospa sm for up to 30 days. [facility] azithromyci n 250 mg tablet 2020-02 00:00: 00 02-13 05:59 :00 No [id number] 250mg Take 1 tablet by mouth daily for 6 days. Take 500 mg day 1, then 250 mg days 2 to 5. [facility] benzonatate (TESSALON PERLES) 100 mg capsule 2020-02 00:00: 00 02-11 00:00 :00 No [id number] 100mg Take 1 capsule by mouth every 8 (eight) hours as needed for Cough. [facility] methylPREDN ISolone (MEDROL, FLORENCIO,) 4 mg tablets 2020-02 2-09 00:00: 00 07-05 00:00 :00 No [id number] Take by mouth SEE-INSTRU CTIONS. follow package directions [facility] lisinopriL 10 mg tablet 11-06 00:00: 00 12-08 00:00 :00 No [id number] 10mg Take 1 tablet by mouth daily. Labs needed for further refills. [facility] hydroCHLORO thiazide 12.5 mg tablet 11-06 00:00: 00 06-10 00:00 :00 No [id number] TAKE 1 TABLET BY MOUTH EVERY MORNING WITH LISINOPRIL AT THE SAME TIME [facility] SPIRIVA RESPIMAT 2.5 mcg/actuati on Mist 06-02 00:00: 00 02-11 00:00 :00 No INHALE 2 PUFFS BY MOUTH ONCE A DAY [facility] mirtazapine 30 mg tablet 10-19 00:00: 00 02-11 00:00 :00 No [id number] 30mg Take 1 tablet by mouth at bedtime. [facility] gabapentin 300 mg capsule 10-11 00:00: 00 04-09 00:00 :00 No [facility] tiZANidine 4 mg tablet 10-11 00:00: 00 07-05 00:00 :00 No [facility] acetaminoph en-codeine 300-30 mg tablet 10-11 00:00: 00 07-05 00:00 :00 No [facility] HYDROcodone -acetaminop hen 7.5-325 mg per tablet 10-11 00:00: 00 07-05 00:00 :00 No [facility] albuterol 90 mcg/actuati on inhaler 08-02 00:00: 00 Yes [id number] 2{puff} Inhale 2 Puffs every 6 (six) hours as needed for Wheezing. [facility] cyclobenzap rine 10 mg oral tablet 06-15 15:14: 00 Yes 10 mg = 1 tab, PO, TID, PRN Spasm, # 90 tab, 0 Refill(s), given to patient [place] Unknown Home Medication 06-14 19:57: 00 Yes Refill(s) 0 [place] LR IV 1,000 mL 06-14 18:26: 00 No 1,000 mL, Rate: 75 ml/hr, Infuse over: 13.3 hr, Route: IV, Dosing Weight 72.727 kg, Total Volume: 1,000, Start date: 06/14/14 13:26:00, Duration: 30 day, Stop date: 07/14/14 13:25:00 [place] phenol 06-14 18:26: 00 No Notes: Chlorasept ic [place] (Same as: Chlorasept ic, Sore Throat [place]) [facility] [place] Robaxin 06-14 18:26: 00 No Notes: (Same as:Robaxin ) [place] [place] Flexeril 06-14 18:26: 00 No Notes: (Same As: Flexeril) [place] [place] Morphine 06-14 15:46: 00 No Notes: (Same as:MORPhin e Sulfate) [place] [place] Naloxone 06-14 15:46: 00 No Notes: Same as Narcan [place] Diphenhydra mine 06-14 15:46: 00 No Notes: (Same as: Benadryl) Angeljagjit [place] Ondansetron 06-14 15:46: 00 No Notes: (Same as: Zofran) MEDICATION WASTE Product Size: 4 mg Product Wasted: ___ mg [place] [place] Promethazin e 06-14 15:46: 00 No Notes: Do not give IV push. (Same as: Phenergan) Angeljagjit [place] Flumazenil 06-14 15:46: 00 No Notes: (Same as: Romazicon) [place] Meperidine 06-14 15:46: 00 No Notes: (Same As: Demerol) [place] Hydromorpho ne 06-14 15:46: 00 No Notes: (Same as: Dilaudid) [place] Glycopyrrol ate 06-14 15:46: 00 No Notes: (Same as: Robinul) [place] Labetalol 06-14 15:46: 00 No Notes: (Same as: Normodyne, Trandate) Push over 2 minutes Give bolus over 2-3 minutes. [place] Hydralazine 06-14 15:46: 00 No Notes: (Same as: Apresoline ) Push over 5 minutes [place] Calcium Chloride 0.0014 MEQ/ML / Potassium Chloride 0.004 MEQ/ML / Sodium Chloride 0.103 MEQ/ML / Sodium Lactate 0.028 MEQ/ML Injectable Solution 06-14 15:46: 00 No 1,000 mL, Rate: 125 ml/hr, Infuse over: 8 hr, Route: IV, Dosing Weight 72.727 kg, Total Volume: 1,000, Start date: 06/14/14 10:46:00, Duration: 30 day, Stop date: 07/14/14 10:45:00 [place] ceFAZolin 06-14 11:30: 00 No Notes: Same as: Ancef Dle[place] Acetaminoph en 325 MG / Hydrocodone Bitartrate 10 MG Oral Tablet [[place] 10/325] 06-10 17:53: 00 No 1 tab, PO, PRN, 0 Refill(s) [place] Immunizations Ordered Immunization Name Filled Immunization Name Date Status Comments Source Influenza Virus Vaccine,quad Im,preserve Free 2021-10-28 00:00:00 Completed [facility] Influenza Virus Vaccine,quad Im,preserve Free 2021-10-28 00:00:00 Completed [facility] Influenza Virus Vaccine,quad Im,preserve Free 2021-10-28 00:00:00 Completed [facility] Influenza Virus Vaccine,quad Im,preserve Free 2021-10-28 00:00:00 Completed [facility] Influenza Virus Vaccine,quad Im,preserve Free 2021-10-28 00:00:00 Completed [facility] Influenza Virus Vaccine,quad Im,preserve Free 65+ 2021-10-28 00:00:00 Completed [facility] Influenza Virus Vaccine,quad Im,preserve Free 65+ 2021-10-28 00:00:00 Completed [facility] Influenza Virus Vaccine,quad Im,preserve Free 65+ 2021-10-28 00:00:00 Completed [facility] Influenza Virus Vaccine,quad Im,preserve Free 65+ 2021-10-28 00:00:00 Completed [facility] Influenza Virus Vaccine,quad Im,preserve Free 65+ 2021-10-28 00:00:00 Completed [facility] Influenza Virus Vaccine,quad Im,preserve Free 65+ 2021-10-28 00:00:00 Completed [facility] Influenza Virus Vaccine,quad Im,preserve Free 65+ 2021-10-28 00:00:00 Completed [facility] Influenza Virus Vaccine,quad Im,preserve Free 65+ 2021-10-28 00:00:00 Completed [facility] Influenza Virus Vaccine,quad Im,preserve Free 65+ 2021-10-28 00:00:00 Completed [facility] Influenza Virus Vaccine,quad Im,preserve Free 65+ 2021-10-28 00:00:00 Completed [facility] Influenza Virus Vaccine,quad Im,preserve Free 65+ (FLUAD) 2021-10-28 00:00:00 Completed [facility] Influenza Virus Vaccine,quad Im,preserve Free 65+ (FLUAD) 2021-10-28 00:00:00 Completed [facility] Influenza Virus Vaccine,quad Im,preserve Free 65+ (FLUAD) 2021-10-28 00:00:00 Completed SARS-COV-2 COVID-19 PFIZER MARLENA-SUCROSE VACCINE (HERNANDEZ TOP) 2021-09-10 00:00:00 Completed [facility] SARS-COV-2 COVID-19 PFIZER MARLENA-SUCROSE VACCINE (HERNANDEZ TOP) 2021-09-10 00:00:00 Completed [facility] SARS-COV-2 COVID-19 PFIZER MARLENA-SUCROSE VACCINE (HERNANDEZ TOP) 2021-09-10 00:00:00 Completed [facility] SARS-COV-2 COVID-19 PFIZER MARLENA-SUCROSE VACCINE (HERNANDEZ TOP) 2021-09-10 00:00:00 Completed [facility] SARS-COV-2 COVID-19 PFIZER MARLENA-SUCROSE VACCINE (HERNANDEZ TOP) 2021-09-10 00:00:00 Completed [facility] SARS-COV-2 COVID-19 PFIZER MARLENA-SUCROSE VACCINE (HERNANDEZ TOP) 2021-09-10 00:00:00 Completed [facility] SARS-COV-2 COVID-19 PFIZER MARLENA-SUCROSE VACCINE (HERNANDEZ TOP) 2021-09-10 00:00:00 Completed [facility] SARS-COV-2 COVID-19 PFIZER MARLENA-SUCROSE VACCINE (HERNANDEZ TOP) 2021-09-10 00:00:00 Completed [facility] SARS-COV-2 COVID-19 PFIZER MARLENA-SUCROSE VACCINE (HERNANDEZ TOP) 2021-09-10 00:00:00 Completed [facility] SARS-COV-2 COVID-19 PFIZER MARLENA-SUCROSE VACCINE (HERNANDEZ TOP) 2021-09-10 00:00:00 Completed [facility] SARS-COV-2 COVID-19 PFIZER MARLENA-SUCROSE VACCINE (HERNANDEZ TOP) 2021-09-10 00:00:00 Completed [facility] SARS-COV-2 COVID-19 PFIZER MARLENA-SUCROSE VACCINE (HERNANDEZ TOP) 2021-09-10 00:00:00 Completed [facility] SARS-COV-2 COVID-19 PFIZER MARLENA-SUCROSE VACCINE (HERNANDEZ TOP) 2021-09-10 00:00:00 Completed [facility] SARS-COV-2 COVID-19 PFIZER MARLENA-SUCROSE VACCINE (HERNANDEZ TOP) 2021-09-10 00:00:00 Completed [facility] SARS-COV-2 COVID-19 PFIZER MARLENA-SUCROSE VACCINE (HERNANDEZ TOP) 2021-09-10 00:00:00 Completed [facility] SARS-COV-2 COVID-19 PFIZER MARLENA-SUCROSE VACCINE (HERNANDEZ TOP) 2021-09-10 00:00:00 Completed [facility] SARS-COV-2 COVID-19 PFIZER MARLENA-SUCROSE VACCINE (HERNANDEZ TOP) 2021-09-10 00:00:00 Completed [facility] SARS-COV-2 COVID-19 PFIZER MARLENA-SUCROSE VACCINE (HERNANDEZ TOP) 2021-09-10 00:00:00 Completed [facility] Influenza High Dose Quad 2020-12-16 00:00:00 Completed [facility] Influenza High Dose Quad 2020-12-16 00:00:00 Completed [facility] Influenza High Dose Quad 2020-12-16 00:00:00 Completed [facility] Influenza High Dose Quad 2020-12-16 00:00:00 Completed [facility] Influenza High Dose Quad 2020-12-16 00:00:00 Completed [facility] Influenza High Dose Quad 2020-12-16 00:00:00 Completed [facility] Influenza High Dose Quad 2020-12-16 00:00:00 Completed [facility] Influenza High Dose Quad 2020-12-16 00:00:00 Completed [facility] Influenza High Dose Quad 2020-12-16 00:00:00 Completed [facility] Influenza High Dose Quad 2020-12-16 00:00:00 Completed [facility] Influenza High Dose Quad 2020-12-16 00:00:00 Completed [facility] Influenza High Dose Quad 2020-12-16 00:00:00 Completed [facility] Influenza High Dose Quad 2020-12-16 00:00:00 Completed [facility] Influenza High Dose Quad 2020-12-16 00:00:00 Completed [facility] Influenza High Dose Quad 2020-12-16 00:00:00 Completed [facility] Influenza High Dose Quad 2020-12-16 00:00:00 Completed [facility] Influenza High Dose Quad 2020-12-16 00:00:00 Completed [facility] Influenza High Dose Quad 2020-12-16 00:00:00 Completed SARS-COV-2 COVID-19 MODERNA VACCINE 2020-04-26 00:00:00 Completed [facility] SARS-COV-2 COVID-19 MODERNA 12+ YRS VACCINE 2020-04-26 00:00:00 Completed [facility] SARS-COV-2 COVID-19 MODERNA 12+ YRS VACCINE 2020-04-26 00:00:00 Completed [facility] SARS-COV-2 COVID-19 MODERNA 12+ YRS VACCINE 2020-04-26 00:00:00 Completed [facility] SARS-COV-2 COVID-19 MODERNA 12+ YRS VACCINE 2020-04-26 00:00:00 Completed [facility] SARS-COV-2 COVID-19 MODERNA 12+ YRS VACCINE 2020-04-26 00:00:00 Completed [facility] SARS-COV-2 COVID-19 MODERNA 12+ YRS VACCINE 2020-04-26 00:00:00 Completed [facility] SARS-COV-2 COVID-19 MODERNA 12+ YRS VACCINE 2020-04-26 00:00:00 Completed [facility] SARS-COV-2 COVID-19 MODERNA 12+ YRS VACCINE 2020-04-26 00:00:00 Completed [facility] SARS-COV-2 COVID-19 MODERNA 12+ YRS VACCINE 2020-04-26 00:00:00 Completed [facility] SARS-COV-2 COVID-19 MODERNA 12+ YRS VACCINE 2020-04-26 00:00:00 Completed [facility] SARS-COV-2 COVID-19 MODERNA 12+ YRS VACCINE 2020-04-26 00:00:00 Completed [facility] SARS-COV-2 COVID-19 MODERNA 12+ YRS VACCINE 2020-04-26 00:00:00 Completed [facility] SARS-COV-2 COVID-19 MODERNA 12+ YRS VACCINE 2020-04-26 00:00:00 Completed [facility] SARS-COV-2 COVID-19 MODERNA 12+ YRS VACCINE 2020-04-26 00:00:00 Completed [facility] SARS-COV-2 COVID-19 MODERNA 12+ YRS VACCINE 2020-04-26 00:00:00 Completed [facility] SARS-COV-2 COVID-19 MODERNA 12+ YRS VACCINE 2020-04-26 00:00:00 Completed [facility] SARS-COV-2 COVID-19 MODERNA 12+ YRS VACCINE 2020-04-26 00:00:00 Completed [facility] SARS-COV-2 COVID-19 MODERNA 12+ YRS VACCINE 2020-04-26 00:00:00 Completed [facility] SARS-COV-2 COVID-19 MODERNA 12+ YRS VACCINE 2020-04-26 00:00:00 Completed [facility] SARS-COV-2 COVID-19 MODERNA 12+ YRS VACCINE 2020-04-26 00:00:00 Completed [facility] SARS-COV-2 COVID-19 MODERNA 12+ YRS VACCINE 2020-04-26 00:00:00 Completed [facility] SARS-COV-2 COVID-19 MODERNA 12+ YRS VACCINE 2020-04-26 00:00:00 Completed [facility] SARS-COV-2 COVID-19 MODERNA 12+ YRS VACCINE 2020-04-26 00:00:00 Completed [facility] SARS-COV-2 COVID-19 MODERNA 12+ YRS VACCINE 2020-04-26 00:00:00 Completed [facility] SARS-COV-2 COVID-19 MODERNA 12+ YRS VACCINE 2020-04-26 00:00:00 Completed [facility] SARS-COV-2 COVID-19 MODERNA 12+ YRS VACCINE 2020-04-26 00:00:00 Completed [facility] SARS-COV-2 COVID-19 MODERNA 12+ YRS VACCINE 2020-04-26 00:00:00 Completed [facility] SARS-COV-2 COVID-19 MODERNA 12+ YRS VACCINE 2020-04-26 00:00:00 Completed [facility] SARS-COV-2 COVID-19 MODERNA 12+ YRS VACCINE 2020-04-26 00:00:00 Completed [facility] SARS-COV-2 COVID-19 MODERNA 12+ YRS VACCINE 2020-04-26 00:00:00 Completed [facility] SARS-COV-2 COVID-19 MODERNA VACCINE 2020-04-26 00:00:00 Completed [facility] SARS-COV-2 COVID-19 MODERNA VACCINE 2020-03-29 00:00:00 Completed [facility] SARS-COV-2 COVID-19 MODERNA 12+ YRS VACCINE 2020-03-29 00:00:00 Completed [facility] SARS-COV-2 COVID-19 MODERNA 12+ YRS VACCINE 2020-03-29 00:00:00 Completed [facility] SARS-COV-2 COVID-19 MODERNA 12+ YRS VACCINE 2020-03-29 00:00:00 Completed [facility] SARS-COV-2 COVID-19 MODERNA 12+ YRS VACCINE 2020-03-29 00:00:00 Completed [facility] SARS-COV-2 COVID-19 MODERNA 12+ YRS VACCINE 2020-03-29 00:00:00 Completed [facility] SARS-COV-2 COVID-19 MODERNA 12+ YRS VACCINE 2020-03-29 00:00:00 Completed [facility] SARS-COV-2 COVID-19 MODERNA 12+ YRS VACCINE 2020-03-29 00:00:00 Completed [facility] SARS-COV-2 COVID-19 MODERNA 12+ YRS VACCINE 2020-03-29 00:00:00 Completed [facility] SARS-COV-2 COVID-19 MODERNA 12+ YRS VACCINE 2020-03-29 00:00:00 Completed [facility] SARS-COV-2 COVID-19 MODERNA 12+ YRS VACCINE 2020-03-29 00:00:00 Completed [facility] SARS-COV-2 COVID-19 MODERNA 12+ YRS VACCINE 2020-03-29 00:00:00 Completed [facility] SARS-COV-2 COVID-19 MODERNA 12+ YRS VACCINE 2020-03-29 00:00:00 Completed [facility] SARS-COV-2 COVID-19 MODERNA 12+ YRS VACCINE 2020-03-29 00:00:00 Completed [facility] SARS-COV-2 COVID-19 MODERNA 12+ YRS VACCINE 2020-03-29 00:00:00 Completed [facility] SARS-COV-2 COVID-19 MODERNA 12+ YRS VACCINE 2020-03-29 00:00:00 Completed [facility] SARS-COV-2 COVID-19 MODERNA 12+ YRS VACCINE 2020-03-29 00:00:00 Completed [facility] SARS-COV-2 COVID-19 MODERNA 12+ YRS VACCINE 2020-03-29 00:00:00 Completed [facility] SARS-COV-2 COVID-19 MODERNA 12+ YRS VACCINE 2020-03-29 00:00:00 Completed [facility] SARS-COV-2 COVID-19 MODERNA 12+ YRS VACCINE 2020-03-29 00:00:00 Completed [facility] SARS-COV-2 COVID-19 MODERNA 12+ YRS VACCINE 2020-03-29 00:00:00 Completed [facility] SARS-COV-2 COVID-19 MODERNA 12+ YRS VACCINE 2020-03-29 00:00:00 Completed [facility] SARS-COV-2 COVID-19 MODERNA 12+ YRS VACCINE 2020-03-29 00:00:00 Completed [facility] SARS-COV-2 COVID-19 MODERNA 12+ YRS VACCINE 2020-03-29 00:00:00 Completed [facility] SARS-COV-2 COVID-19 MODERNA 12+ YRS VACCINE 2020-03-29 00:00:00 Completed [facility] SARS-COV-2 COVID-19 MODERNA 12+ YRS VACCINE 2020-03-29 00:00:00 Completed [facility] SARS-COV-2 COVID-19 MODERNA 12+ YRS VACCINE 2020-03-29 00:00:00 Completed [facility] SARS-COV-2 COVID-19 MODERNA 12+ YRS VACCINE 2020-03-29 00:00:00 Completed [facility] SARS-COV-2 COVID-19 MODERNA 12+ YRS VACCINE 2020-03-29 00:00:00 Completed [facility] SARS-COV-2 COVID-19 MODERNA 12+ YRS VACCINE 2020-03-29 00:00:00 Completed [facility] SARS-COV-2 COVID-19 MODERNA 12+ YRS VACCINE 2020-03-29 00:00:00 Completed [facility] SARS-COV-2 COVID-19 MODERNA VACCINE 2020-03-29 00:00:00 Completed [facility] Influenza High Dose Quad 2019-12-18 00:00:00 Completed [facility] Influenza High Dose Quad 2019-12-18 00:00:00 Completed [facility] Influenza High Dose Quad 2019-12-18 00:00:00 Completed [facility] Influenza High Dose Quad 2019-12-18 00:00:00 Completed [facility] Influenza High Dose Quad 2019-12-18 00:00:00 Completed [facility] Influenza High Dose Quad 2019-12-18 00:00:00 Completed [facility] Influenza High Dose Quad 2019-12-18 00:00:00 Completed [facility] Influenza High Dose Quad 2019-12-18 00:00:00 Completed [facility] Influenza High Dose Quad 2019-12-18 00:00:00 Completed [facility] Influenza High Dose Quad 2019-12-18 00:00:00 Completed [facility] Influenza High Dose Quad 2019-12-18 00:00:00 Completed [facility] Influenza High Dose Quad 2019-12-18 00:00:00 Completed [facility] Influenza High Dose Quad 2019-12-18 00:00:00 Completed [facility] Influenza High Dose Quad 2019-12-18 00:00:00 Completed [facility] Influenza High Dose Quad 2019-12-18 00:00:00 Completed [facility] Influenza High Dose Quad 2019-12-18 00:00:00 Completed [facility] Influenza High Dose Quad 2019-12-18 00:00:00 Completed [facility] Influenza High Dose Quad 2019-12-18 00:00:00 Completed [facility] Influenza High Dose Quad 2019-12-18 00:00:00 Completed [facility] Influenza High Dose Quad 2019-12-18 00:00:00 Completed [facility] Influenza High Dose Quad 2019-12-18 00:00:00 Completed [facility] Influenza High Dose Quad 2019-12-18 00:00:00 Completed [facility] Influenza High Dose Quad 2019-12-18 00:00:00 Completed [facility] Influenza High Dose Quad 2019-12-18 00:00:00 Completed [facility] Influenza High Dose Quad 2019-12-18 00:00:00 Completed [facility] Influenza High Dose Quad 2019-12-18 00:00:00 Completed [facility] Influenza High Dose Quad 2019-12-18 00:00:00 Completed [facility] Influenza High Dose Quad 2019-12-18 00:00:00 Completed [facility] Influenza High Dose Quad 2019-12-18 00:00:00 Completed [facility] Influenza High Dose Quad 2019-12-18 00:00:00 Completed [facility] Influenza High Dose Quad 2019-12-18 00:00:00 Completed Influenza High Dose Quad 2019-12-18 00:00:00 Completed [facility] Influenza High Dose Quad 2019-12-17 00:00:00 Completed [facility] Influenza High Dose Quad 2019-12-17 00:00:00 Completed [facility] Influenza High Dose Quad 2019-12-17 00:00:00 Completed [facility] Influenza High Dose Quad 2019-12-17 00:00:00 Completed [facility] Influenza High Dose Quad 2019-12-17 00:00:00 Completed [facility] Influenza High Dose Quad 2019-12-17 00:00:00 Completed [facility] Influenza High Dose Quad 2019-12-17 00:00:00 Completed [facility] Influenza High Dose Quad 2019-12-17 00:00:00 Completed [facility] Influenza High Dose Quad 2019-12-17 00:00:00 Completed [facility] Influenza High Dose Quad 2019-12-17 00:00:00 Completed [facility] Influenza High Dose Quad 2019-12-17 00:00:00 Completed [facility] Influenza High Dose Quad 2019-12-17 00:00:00 Completed [facility] Influenza High Dose Quad 2019-12-17 00:00:00 Completed [facility] Influenza High Dose Quad 2019-12-17 00:00:00 Completed [facility] Influenza High Dose Quad 2019-12-17 00:00:00 Completed [facility] Influenza High Dose Quad 2019-12-17 00:00:00 Completed [facility] Influenza High Dose Quad 2019-12-17 00:00:00 Completed [facility] Influenza High Dose Quad 2019-12-17 00:00:00 Completed Pneumococcal Polysaccharide, PPSV23 (PNEUMOVAX) 2018-12-18 00:00:00 Completed [facility] Influenza High Dose 2018-12-18 00:00:00 Completed [facility] Pneumococcal Polysaccharide, PPSV23 (PNEUMOVAX) 2018-12-18 00:00:00 Completed [facility] Influenza High Dose 2018-12-18 00:00:00 Completed [facility] Pneumococcal Polysaccharide, PPSV23 (PNEUMOVAX) 2018-12-18 00:00:00 Completed [facility] Influenza High Dose 2018-12-18 00:00:00 Completed [facility] Pneumococcal Polysaccharide, PPSV23 (PNEUMOVAX) 2018-12-18 00:00:00 Completed [facility] Influenza High Dose 2018-12-18 00:00:00 Completed [facility] Pneumococcal Polysaccharide, PPSV23 (PNEUMOVAX) 2018-12-18 00:00:00 Completed [facility] Influenza High Dose 2018-12-18 00:00:00 Completed [facility] Pneumococcal Polysaccharide, PPSV23 (PNEUMOVAX) 2018-12-18 00:00:00 Completed [facility] Influenza High Dose 2018-12-18 00:00:00 Completed [facility] Pneumococcal Polysaccharide, PPSV23 (PNEUMOVAX) 2018-12-18 00:00:00 Completed [facility] Influenza High Dose 2018-12-18 00:00:00 Completed [facility] Pneumococcal Polysaccharide, PPSV23 (PNEUMOVAX) 2018-12-18 00:00:00 Completed [facility] Influenza High Dose 2018-12-18 00:00:00 Completed [facility] Pneumococcal Polysaccharide, PPSV23 (PNEUMOVAX) 2018-12-18 00:00:00 Completed [facility] Influenza High Dose 2018-12-18 00:00:00 Completed [facility] Pneumococcal Polysaccharide, PPSV23 (PNEUMOVAX) 2018-12-18 00:00:00 Completed [facility] Influenza High Dose 2018-12-18 00:00:00 Completed [facility] Pneumococcal Polysaccharide, PPSV23 (PNEUMOVAX) 2018-12-18 00:00:00 Completed [facility] Influenza High Dose 2018-12-18 00:00:00 Completed [facility] Pneumococcal Polysaccharide, PPSV23 (PNEUMOVAX) 2018-12-18 00:00:00 Completed [facility] Influenza High Dose 2018-12-18 00:00:00 Completed [facility] Pneumococcal Polysaccharide, PPSV23 (PNEUMOVAX) 2018-12-18 00:00:00 Completed [facility] Influenza High Dose 2018-12-18 00:00:00 Completed [facility] Pneumococcal Polysaccharide, PPSV23 (PNEUMOVAX) 2018-12-18 00:00:00 Completed [facility] Influenza High Dose 2018-12-18 00:00:00 Completed [facility] Pneumococcal Polysaccharide, PPSV23 (PNEUMOVAX) 2018-12-18 00:00:00 Completed [facility] Influenza High Dose 2018-12-18 00:00:00 Completed [facility] Pneumococcal Polysaccharide, PPSV23 (PNEUMOVAX) 2018-12-18 00:00:00 Completed [facility] Influenza High Dose 2018-12-18 00:00:00 Completed [facility] Pneumococcal Polysaccharide, PPSV23 (PNEUMOVAX) 2018-12-18 00:00:00 Completed [facility] Influenza High Dose 2018-12-18 00:00:00 Completed [facility] Pneumococcal Polysaccharide, PPSV23 (PNEUMOVAX) 2018-12-18 00:00:00 Completed [facility] Influenza High Dose 2018-12-18 00:00:00 Completed [facility] Pneumococcal Polysaccharide, PPSV23 (PNEUMOVAX) 2018-12-18 00:00:00 Completed [facility] Influenza High Dose 2018-12-18 00:00:00 Completed [facility] Pneumococcal Polysaccharide, PPSV23 (PNEUMOVAX) 2018-12-18 00:00:00 Completed [facility] Influenza High Dose 2018-12-18 00:00:00 Completed [facility] Pneumococcal Polysaccharide, PPSV23 (PNEUMOVAX) 2018-12-18 00:00:00 Completed [facility] Influenza High Dose 2018-12-18 00:00:00 Completed [facility] Pneumococcal Polysaccharide, PPSV23 (PNEUMOVAX) 2018-12-18 00:00:00 Completed [facility] Influenza High Dose 2018-12-18 00:00:00 Completed [facility] Pneumococcal Polysaccharide, PPSV23 (PNEUMOVAX) 2018-12-18 00:00:00 Completed [facility] Influenza High Dose 2018-12-18 00:00:00 Completed [facility] Pneumococcal Polysaccharide, PPSV23 (PNEUMOVAX) 2018-12-18 00:00:00 Completed [facility] Influenza High Dose 2018-12-18 00:00:00 Completed [facility] Pneumococcal Polysaccharide, PPSV23 (PNEUMOVAX) 2018-12-18 00:00:00 Completed [facility] Influenza High Dose 2018-12-18 00:00:00 Completed [facility] Pneumococcal Polysaccharide, PPSV23 (PNEUMOVAX) 2018-12-18 00:00:00 Completed [facility] Influenza High Dose 2018-12-18 00:00:00 Completed [facility] Pneumococcal Polysaccharide, PPSV23 (PNEUMOVAX) 2018-12-18 00:00:00 Completed [facility] Influenza High Dose 2018-12-18 00:00:00 Completed [facility] Pneumococcal Polysaccharide, PPSV23 (PNEUMOVAX) 2018-12-18 00:00:00 Completed [facility] Influenza High Dose 2018-12-18 00:00:00 Completed [facility] Pneumococcal Polysaccharide, PPSV23 (PNEUMOVAX) 2018-12-18 00:00:00 Completed [facility] Influenza High Dose 2018-12-18 00:00:00 Completed [facility] Pneumococcal Polysaccharide, PPSV23 (PNEUMOVAX) 2018-12-18 00:00:00 Completed [facility] Influenza High Dose 2018-12-18 00:00:00 Completed [facility] Pneumococcal Polysaccharide, PPSV23 (PNEUMOVAX) 2018-12-18 00:00:00 Completed [facility] Influenza, High-Dose, Trivalent, PF (FLUZONE) 2018-12-18 00:00:00 Completed Pneumococcal Polysaccharide, PPSV23 (PNEUMOVAX) 2018-12-18 00:00:00 Completed [facility] Influenza High Dose 2018-12-18 00:00:00 Completed [facility] Influenza High Dose 2018-12-17 00:00:00 Completed [facility] Pneumococcal Polysaccharide, PPSV23 (PNEUMOVAX) 2018-12-17 00:00:00 Completed [facility] Influenza High Dose 2018-12-17 00:00:00 Completed [facility] Pneumococcal Polysaccharide, PPSV23 (PNEUMOVAX) 2018-12-17 00:00:00 Completed [facility] Influenza High Dose 2018-12-17 00:00:00 Completed [facility] Pneumococcal Polysaccharide, PPSV23 (PNEUMOVAX) 2018-12-17 00:00:00 Completed [facility] Influenza High Dose 2018-12-17 00:00:00 Completed [facility] Pneumococcal Polysaccharide, PPSV23 (PNEUMOVAX) 2018-12-17 00:00:00 Completed [facility] Influenza High Dose 2018-12-17 00:00:00 Completed [facility] Pneumococcal Polysaccharide, PPSV23 (PNEUMOVAX) 2018-12-17 00:00:00 Completed [facility] Influenza High Dose 2018-12-17 00:00:00 Completed [facility] Pneumococcal Polysaccharide, PPSV23 (PNEUMOVAX) 2018-12-17 00:00:00 Completed [facility] Influenza High Dose 2018-12-17 00:00:00 Completed [facility] Pneumococcal Polysaccharide, PPSV23 (PNEUMOVAX) 2018-12-17 00:00:00 Completed [facility] Influenza High Dose 2018-12-17 00:00:00 Completed [facility] Pneumococcal Polysaccharide, PPSV23 (PNEUMOVAX) 2018-12-17 00:00:00 Completed [facility] Influenza High Dose 2018-12-17 00:00:00 Completed [facility] Pneumococcal Polysaccharide, PPSV23 (PNEUMOVAX) 2018-12-17 00:00:00 Completed [facility] Influenza High Dose 2018-12-17 00:00:00 Completed [facility] Pneumococcal Polysaccharide, PPSV23 (PNEUMOVAX) 2018-12-17 00:00:00 Completed [facility] Influenza High Dose 2018-12-17 00:00:00 Completed [facility] Pneumococcal Polysaccharide, PPSV23 (PNEUMOVAX) 2018-12-17 00:00:00 Completed [facility] Influenza High Dose 2018-12-17 00:00:00 Completed [facility] Pneumococcal Polysaccharide, PPSV23 (PNEUMOVAX) 2018-12-17 00:00:00 Completed [facility] Influenza High Dose 2018-12-17 00:00:00 Completed [facility] Pneumococcal Polysaccharide, PPSV23 (PNEUMOVAX) 2018-12-17 00:00:00 Completed [facility] Influenza High Dose 2018-12-17 00:00:00 Completed [facility] Pneumococcal Polysaccharide, PPSV23 (PNEUMOVAX) 2018-12-17 00:00:00 Completed [facility] Influenza High Dose 2018-12-17 00:00:00 Completed [facility] Pneumococcal Polysaccharide, PPSV23 (PNEUMOVAX) 2018-12-17 00:00:00 Completed [facility] Influenza High Dose 2018-12-17 00:00:00 Completed [facility] Pneumococcal Polysaccharide, PPSV23 (PNEUMOVAX) 2018-12-17 00:00:00 Completed [facility] Influenza High Dose 2018-12-17 00:00:00 Completed [facility] Pneumococcal Polysaccharide, PPSV23 (PNEUMOVAX) 2018-12-17 00:00:00 Completed [facility] Influenza, High-Dose, Trivalent, PF (FLUZONE) 2018-12-17 00:00:00 Completed Pneumococcal Polysaccharide, PPSV23 (PNEUMOVAX) 2018-12-17 00:00:00 Completed Influenza High Dose 2018-01-28 00:00:00 Completed [facility] Influenza High Dose 2018-01-28 00:00:00 Completed [facility] Influenza High Dose 2018-01-28 00:00:00 Completed [facility] Influenza High Dose 2018-01-28 00:00:00 Completed [facility] Influenza High Dose 2018-01-28 00:00:00 Completed [facility] Influenza High Dose 2018-01-28 00:00:00 Completed [facility] Influenza High Dose 2018-01-28 00:00:00 Completed [facility] Influenza High Dose 2018-01-28 00:00:00 Completed [facility] Influenza High Dose 2018-01-28 00:00:00 Completed [facility] Influenza High Dose 2018-01-28 00:00:00 Completed [facility] Influenza High Dose 2018-01-28 00:00:00 Completed [facility] Influenza High Dose 2018-01-28 00:00:00 Completed [facility] Influenza High Dose 2018-01-28 00:00:00 Completed [facility] Influenza High Dose 2018-01-28 00:00:00 Completed [facility] Influenza High Dose 2018-01-28 00:00:00 Completed [facility] Influenza High Dose 2018-01-28 00:00:00 Completed [facility] Influenza High Dose 2018-01-28 00:00:00 Completed [facility] Influenza High Dose 2018-01-28 00:00:00 Completed [facility] Influenza High Dose 2018-01-28 00:00:00 Completed [facility] Influenza High Dose 2018-01-28 00:00:00 Completed [facility] Influenza High Dose 2018-01-28 00:00:00 Completed [facility] Influenza High Dose 2018-01-28 00:00:00 Completed [facility] Influenza High Dose 2018-01-28 00:00:00 Completed [facility] Influenza High Dose 2018-01-28 00:00:00 Completed [facility] Influenza High Dose 2018-01-28 00:00:00 Completed [facility] Influenza High Dose 2018-01-28 00:00:00 Completed [facility] Influenza High Dose 2018-01-28 00:00:00 Completed [facility] Influenza High Dose 2018-01-28 00:00:00 Completed [facility] Influenza High Dose 2018-01-28 00:00:00 Completed [facility] Influenza High Dose 2018-01-28 00:00:00 Completed [facility] Influenza, High-Dose, Trivalent, PF (FLUZONE) 2018-01-28 00:00:00 Completed Influenza High Dose 2018-01-28 00:00:00 Completed [facility] Influenza High Dose 2018-01-27 00:00:00 Completed [facility] Influenza High Dose 2018-01-27 00:00:00 Completed [facility] Influenza High Dose 2018-01-27 00:00:00 Completed [facility] Influenza High Dose 2018-01-27 00:00:00 Completed [facility] Influenza High Dose 2018-01-27 00:00:00 Completed [facility] Influenza High Dose 2018-01-27 00:00:00 Completed [facility] Influenza High Dose 2018-01-27 00:00:00 Completed [facility] Influenza High Dose 2018-01-27 00:00:00 Completed [facility] Influenza High Dose 2018-01-27 00:00:00 Completed [facility] Influenza High Dose 2018-01-27 00:00:00 Completed [facility] Influenza High Dose 2018-01-27 00:00:00 Completed [facility] Influenza High Dose 2018-01-27 00:00:00 Completed [facility] Influenza High Dose 2018-01-27 00:00:00 Completed [facility] Influenza High Dose 2018-01-27 00:00:00 Completed [facility] Influenza High Dose 2018-01-27 00:00:00 Completed [facility] Influenza High Dose 2018-01-27 00:00:00 Completed [facility] Influenza High Dose 2018-01-27 00:00:00 Completed [facility] Influenza, High-Dose, Trivalent, PF (FLUZONE) 2018-01-27 00:00:00 Completed Zoster(Zostavax)([facility]) 2017-02-17 00:00:00 Completed [facility] Zoster(Zostavax)([facility]) 2017-02-17 00:00:00 Completed [facility] Zoster(Zostavax)([facility]) 2017-02-17 00:00:00 Completed [facility] Zoster(Zostavax)([facility]) 2017-02-17 00:00:00 Completed [facility] Zoster(Zostavax)([facility]) 2017-02-17 00:00:00 Completed [facility] Zoster(Zostavax)([facility]) 2017-02-17 00:00:00 Completed [facility] Zoster(Zostavax)([facility]) 2017-02-17 00:00:00 Completed [facility] Zoster(Zostavax)([facility]) 2017-02-17 00:00:00 Completed [facility] Zoster(Zostavax)([facility]) 2017-02-17 00:00:00 Completed [facility] Zoster(Zostavax)([facility]) 2017-02-17 00:00:00 Completed [facility] Zoster(Zostavax)([facility]) 2017-02-17 00:00:00 Completed [facility] Zoster(Zostavax)([facility]) 2017-02-17 00:00:00 Completed [facility] Zoster(Zostavax)([facility]) 2017-02-17 00:00:00 Completed [facility] Zoster(Zostavax)([facility]) 2017-02-17 00:00:00 Completed [facility] Zoster(Zostavax)([facility]) 2017-02-17 00:00:00 Completed [facility] Zoster(Zostavax)([facility]) 2017-02-17 00:00:00 Completed [facility] Zoster(Zostavax)([facility]) 2017-02-17 00:00:00 Completed [facility] Zoster(Zostavax)([facility]) 2017-02-17 00:00:00 Completed [facility] Zoster(Zostavax)([facility]) 2017-02-17 00:00:00 Completed [facility] Zoster(Zostavax)([facility]) 2017-02-17 00:00:00 Completed [facility] Zoster(Zostavax)([facility]) 2017-02-17 00:00:00 Completed [facility] Zoster(Zostavax)([facility]) 2017-02-17 00:00:00 Completed [facility] Zoster(Zostavax)([facility]) 2017-02-17 00:00:00 Completed [facility] Zoster(Zostavax)([facility]) 2017-02-17 00:00:00 Completed [facility] Zoster(Zostavax)([facility]) 2017-02-17 00:00:00 Completed [facility] Zoster(Zostavax)([facility]) 2017-02-17 00:00:00 Completed [facility] Zoster(Zostavax)([facility]) 2017-02-17 00:00:00 Completed [facility] Zoster(Zostavax)([facility]) 2017-02-17 00:00:00 Completed [facility] Zoster(Zostavax)([facility]) 2017-02-17 00:00:00 Completed [facility] Zoster(Zostavax)([facility]) 2017-02-17 00:00:00 Completed [facility] Zoster(Zostavax)( [facility]) 2017-02-17 00:00:00 Completed Zoster(Zostavax)( [place]) 2017-02-17 00:00:00 Completed [facility] Influenza Virus Vaccine 2016-11-26 00:00:00 Completed [facility] Pneumococcal 13 Conjugate, PCV13 (Prevnar 13) 2016-11-26 00:00:00 Completed [facility] Influenza Virus Vaccine 2016-11-26 00:00:00 Completed [facility] Pneumococcal 13 Conjugate, PCV13 (Prevnar 13) 2016-11-26 00:00:00 Completed [facility] Influenza Virus Vaccine 2016-11-26 00:00:00 Completed [facility] Pneumococcal 13 Conjugate, PCV13 (Prevnar 13) 2016-11-26 00:00:00 Completed [facility] Influenza Virus Vaccine 2016-11-26 00:00:00 Completed [facility] Pneumococcal 13 Conjugate, PCV13 (Prevnar 13) 2016-11-26 00:00:00 Completed [facility] Influenza Virus Vaccine 2016-11-26 00:00:00 Completed [facility] Pneumococcal 13 Conjugate, PCV13 (Prevnar 13) 2016-11-26 00:00:00 Completed [facility] Influenza Virus Vaccine 2016-11-26 00:00:00 Completed [facility] Pneumococcal 13 Conjugate, PCV13 (Prevnar 13) 2016-11-26 00:00:00 Completed [facility] Influenza Virus Vaccine 2016-11-26 00:00:00 Completed [facility] Pneumococcal 13 Conjugate, PCV13 (Prevnar 13) 2016-11-26 00:00:00 Completed [facility] Influenza Virus Vaccine 2016-11-26 00:00:00 Completed [facility] Pneumococcal 13 Conjugate, PCV13 (Prevnar 13) 2016-11-26 00:00:00 Completed [facility] Influenza Virus Vaccine 2016-11-26 00:00:00 Completed [facility] Pneumococcal 13 Conjugate, PCV13 (Prevnar 13) 2016-11-26 00:00:00 Completed [facility] Influenza Virus Vaccine 2016-11-26 00:00:00 Completed [facility] Pneumococcal 13 Conjugate, PCV13 (Prevnar 13) 2016-11-26 00:00:00 Completed [facility] Influenza Virus Vaccine 2016-11-26 00:00:00 Completed [facility] Pneumococcal 13 Conjugate, PCV13 (Prevnar 13) 2016-11-26 00:00:00 Completed [facility] Influenza Virus Vaccine 2016-11-26 00:00:00 Completed [facility] Pneumococcal 13 Conjugate, PCV13 (Prevnar 13) 2016-11-26 00:00:00 Completed [facility] Influenza Virus Vaccine 2016-11-26 00:00:00 Completed [facility] Pneumococcal 13 Conjugate, PCV13 (Prevnar 13) 2016-11-26 00:00:00 Completed [facility] Influenza Virus Vaccine 2016-11-26 00:00:00 Completed [facility] Pneumococcal 13 Conjugate, PCV13 (Prevnar 13) 2016-11-26 00:00:00 Completed [facility] Influenza Virus Vaccine 2016-11-26 00:00:00 Completed [facility] Pneumococcal 13 Conjugate, PCV13 (Prevnar 13) 2016-11-26 00:00:00 Completed [facility] Influenza Virus Vaccine 2016-11-26 00:00:00 Completed [facility] Pneumococcal 13 Conjugate, PCV13 (Prevnar 13) 2016-11-26 00:00:00 Completed [facility] Influenza Virus Vaccine 2016-11-26 00:00:00 Completed [facility] Pneumococcal 13 Conjugate, PCV13 (Prevnar 13) 2016-11-26 00:00:00 Completed [facility] Influenza Virus Vaccine 2016-11-26 00:00:00 Completed [facility] Pneumococcal 13 Conjugate, PCV13 (Prevnar 13) 2016-11-26 00:00:00 Completed [facility] Influenza Virus Vaccine 2016-11-26 00:00:00 Completed [facility] Pneumococcal 13 Conjugate, PCV13 (Prevnar 13) 2016-11-26 00:00:00 Completed [facility] Influenza Virus Vaccine 2016-11-26 00:00:00 Completed [facility] Pneumococcal 13 Conjugate, PCV13 (Prevnar 13) 2016-11-26 00:00:00 Completed [facility] Influenza Virus Vaccine 2016-11-26 00:00:00 Completed [facility] Pneumococcal 13 Conjugate, PCV13 (Prevnar 13) 2016-11-26 00:00:00 Completed [facility] Influenza Virus Vaccine 2016-11-26 00:00:00 Completed [facility] Pneumococcal 13 Conjugate, PCV13 (Prevnar 13) 2016-11-26 00:00:00 Completed [facility] Influenza Virus Vaccine 2016-11-26 00:00:00 Completed [facility] Pneumococcal 13 Conjugate, PCV13 (Prevnar 13) 2016-11-26 00:00:00 Completed [facility] Influenza Virus Vaccine 2016-11-26 00:00:00 Completed [facility] Pneumococcal 13 Conjugate, PCV13 (Prevnar 13) 2016-11-26 00:00:00 Completed [facility] Influenza Virus Vaccine 2016-11-26 00:00:00 Completed [facility] Pneumococcal 13 Conjugate, PCV13 (Prevnar 13) 2016-11-26 00:00:00 Completed [facility] Influenza Virus Vaccine 2016-11-26 00:00:00 Completed [facility] Pneumococcal 13 Conjugate, PCV13 (Prevnar 13) 2016-11-26 00:00:00 Completed [facility] Influenza Virus Vaccine 2016-11-26 00:00:00 Completed [facility] [place] Pneumococcal 13 Conjugate, PCV13 (Prevnar 13) 2016-11-26 00:00:00 Completed [facility] [place] Influenza Virus Vaccine 2016-11-26 00:00:00 Completed [facility] [place] Pneumococcal 13 Conjugate, PCV13 (Prevnar 13) 2016-11-26 00:00:00 Completed [facility] [place] Influenza Virus Vaccine 2016-11-26 00:00:00 Completed [facility] [place] Pneumococcal 13 Conjugate, PCV13 (Prevnar 13) 2016-11-26 00:00:00 Completed [facility] [place] Influenza Virus Vaccine 2016-11-26 00:00:00 Completed [facility] [place] Pneumococcal 13 Conjugate, PCV13 (Prevnar 13) 2016-11-26 00:00:00 Completed [facility] [place] Influenza Virus Vaccine 2016-11-26 00:00:00 Completed Pneumococcal 13 Conjugate, PCV13 (Prevnar 13) 2016-11-26 00:00:00 Completed Influenza Virus Vaccine 2016-11-26 00:00:00 Completed [facility] [place] Pneumococcal 13 Conjugate, PCV13 (Prevnar 13) 2016-11-26 00:00:00 Completed [facility] [place] TDAP 2016-10-30 00:00:00 Completed [facility] [place] TDAP 2016-10-30 00:00:00 Completed [facility] [place] TDAP 2016-10-30 00:00:00 Completed [facility] [place] TDAP 2016-10-30 00:00:00 Completed [facility] [place] TDAP 2016-10-30 00:00:00 Completed [facility] [place] TDAP 2016-10-30 00:00:00 Completed [facility] [place] TDAP 2016-10-30 00:00:00 Completed [facility] [place] TDAP 2016-10-30 00:00:00 Completed [facility] [place] TDAP 2016-10-30 00:00:00 Completed [facility] [place] TDAP 2016-10-30 00:00:00 Completed [facility] [place] TDAP 2016-10-30 00:00:00 Completed [facility] [place] TDAP 2016-10-30 00:00:00 Completed [facility] [place] TDAP 2016-10-30 00:00:00 Completed [facility] [place] TDAP 2016-10-30 00:00:00 Completed [facility] [place] TDAP 2016-10-30 00:00:00 Completed [facility] [place] TDAP 2016-10-30 00:00:00 Completed [facility] [place] TDAP 2016-10-30 00:00:00 Completed [facility] [place] TDAP 2016-10-30 00:00:00 Completed [facility] [place] TDAP 2016-10-30 00:00:00 Completed [facility] [place] TDAP 2016-10-30 00:00:00 Completed [facility] [place] TDAP 2016-10-30 00:00:00 Completed [facility] [place] TDAP 2016-10-30 00:00:00 Completed [facility] [place] TDAP 2016-10-30 00:00:00 Completed [facility] [place] TDAP 2016-10-30 00:00:00 Completed [facility] [place] TDAP 2016-10-30 00:00:00 Completed [facility] [place] TDAP 2016-10-30 00:00:00 Completed [facility] [place] TDAP 2016-10-30 00:00:00 Completed [facility] [place] TDAP 2016-10-30 00:00:00 Completed [facility] [place] TDAP 2016-10-30 00:00:00 Completed [facility] [place] TDAP 2016-10-30 00:00:00 Completed [facility] [place] TDAP 2016-10-30 00:00:00 Completed [facility] [place] TDAP 2016-10-30 00:00:00 Completed [facility] [place] TDAP 2016-10-29 00:00:00 Completed [facility] [place] TDAP 2016-10-29 00:00:00 Completed [facility] [place] TDAP 2016-10-29 00:00:00 Completed [facility] [place] TDAP 2016-10-29 00:00:00 Completed [facility] [place] TDAP 2016-10-29 00:00:00 Completed [facility] [place] TDAP 2016-10-29 00:00:00 Completed [facility] [place] TDAP 2016-10-29 00:00:00 Completed [facility] [place] TDAP 2016-10-29 00:00:00 Completed [facility] [place] TDAP 2016-10-29 00:00:00 Completed [facility] [place] TDAP 2016-10-29 00:00:00 Completed [facility] [place] TDAP 2016-10-29 00:00:00 Completed [facility] [place] TDAP 2016-10-29 00:00:00 Completed [facility] [place] TDAP 2016-10-29 00:00:00 Completed [facility] [place] TDAP 2016-10-29 00:00:00 Completed [facility] [place] TDAP 2016-10-29 00:00:00 Completed [facility] [place] TDAP 2016-10-29 00:00:00 Completed [facility] [place] TDAP 2016-10-29 00:00:00 Completed [facility] [place] TDAP 2016-10-29 00:00:00 Completed Influenza Virus Vaccine Quad ID 18-64 YRS 2014-12-27 00:00:00 Completed [facility] [place] Pneumococcal Polysaccharide, PPSV23 (PNEUMOVAX) 2014-12-27 00:00:00 Completed [facility] [place] Influenza Virus Vaccine Quad ID 18-64 YRS 2014-12-27 00:00:00 Completed [facility] [place] Pneumococcal Polysaccharide, PPSV23 (PNEUMOVAX) 2014-12-27 00:00:00 Completed [facility] [place] Influenza Virus Vaccine Quad ID 18-64 YRS 2014-12-27 00:00:00 Completed [facility] [place] Pneumococcal Polysaccharide, PPSV23 (PNEUMOVAX) 2014-12-27 00:00:00 Completed [facility] [place] Influenza Virus Vaccine Quad ID 18-64 YRS 2014-12-27 00:00:00 Completed [facility] [place] Pneumococcal Polysaccharide, PPSV23 (PNEUMOVAX) 2014-12-27 00:00:00 Completed [facility] [place] Influenza Virus Vaccine Quad ID 18-64 YRS 2014-12-27 00:00:00 Completed [facility] [place] Pneumococcal Polysaccharide, PPSV23 (PNEUMOVAX) 2014-12-27 00:00:00 Completed [facility] [place] Influenza Virus Vaccine Quad ID 18-64 YRS 2014-12-27 00:00:00 Completed [facility] [place] Pneumococcal Polysaccharide, PPSV23 (PNEUMOVAX) 2014-12-27 00:00:00 Completed [facility] [place] Influenza Virus Vaccine Quad ID 18-64 YRS 2014-12-27 00:00:00 Completed [facility] [place] Pneumococcal Polysaccharide, PPSV23 (PNEUMOVAX) 2014-12-27 00:00:00 Completed [facility] [place] Influenza Virus Vaccine Quad ID 18-64 YRS 2014-12-27 00:00:00 Completed [facility] [place] Pneumococcal Polysaccharide, PPSV23 (PNEUMOVAX) 2014-12-27 00:00:00 Completed [facility] [place] Influenza Virus Vaccine Quad ID 18-64 YRS 2014-12-27 00:00:00 Completed [facility] [place] Pneumococcal Polysaccharide, PPSV23 (PNEUMOVAX) 2014-12-27 00:00:00 Completed [facility] [place] Influenza Virus Vaccine Quad ID 18-64 YRS 2014-12-27 00:00:00 Completed [facility] [place] Pneumococcal Polysaccharide, PPSV23 (PNEUMOVAX) 2014-12-27 00:00:00 Completed [facility] [place] Influenza Virus Vaccine Quad ID 18-64 YRS 2014-12-27 00:00:00 Completed [facility] [place] Pneumococcal Polysaccharide, PPSV23 (PNEUMOVAX) 2014-12-27 00:00:00 Completed [facility] [place] Influenza Virus Vaccine Quad ID 18-64 YRS 2014-12-27 00:00:00 Completed [facility] [place] Pneumococcal Polysaccharide, PPSV23 (PNEUMOVAX) 2014-12-27 00:00:00 Completed [facility] [place] Influenza Virus Vaccine Quad ID 18-64 YRS 2014-12-27 00:00:00 Completed [facility] [place] Pneumococcal Polysaccharide, PPSV23 (PNEUMOVAX) 2014-12-27 00:00:00 Completed [facility] [place] Influenza Virus Vaccine Quad ID 18-64 YRS 2014-12-27 00:00:00 Completed [facility] [place] Pneumococcal Polysaccharide, PPSV23 (PNEUMOVAX) 2014-12-27 00:00:00 Completed [facility] [place] Influenza Virus Vaccine Quad ID 18-64 YRS 2014-12-27 00:00:00 Completed [facility] [place] Pneumococcal Polysaccharide, PPSV23 (PNEUMOVAX) 2014-12-27 00:00:00 Completed [facility] [place] Influenza Virus Vaccine Quad ID 18-64 YRS 2014-12-27 00:00:00 Completed [facility] [place] Pneumococcal Polysaccharide, PPSV23 (PNEUMOVAX) 2014-12-27 00:00:00 Completed [facility] [place] Influenza Virus Vaccine Quad ID 18-64 YRS 2014-12-27 00:00:00 Completed [facility] [place] Pneumococcal Polysaccharide, PPSV23 (PNEUMOVAX) 2014-12-27 00:00:00 Completed [facility] [place] Influenza Virus Vaccine Quad ID 18-64 YRS 2014-12-27 00:00:00 Completed [facility] [place] Pneumococcal Polysaccharide, PPSV23 (PNEUMOVAX) 2014-12-27 00:00:00 Completed [facility] [place] Influenza Virus Vaccine Quad ID 18-64 YRS 2014-12-27 00:00:00 Completed [facility] [place] Pneumococcal Polysaccharide, PPSV23 (PNEUMOVAX) 2014-12-27 00:00:00 Completed [facility] [place] Influenza Virus Vaccine Quad ID 18-64 YRS 2014-12-27 00:00:00 Completed [facility] [place] Pneumococcal Polysaccharide, PPSV23 (PNEUMOVAX) 2014-12-27 00:00:00 Completed [facility] [place] Influenza Virus Vaccine Quad ID 18-64 YRS 2014-12-27 00:00:00 Completed [facility] [place] Pneumococcal Polysaccharide, PPSV23 (PNEUMOVAX) 2014-12-27 00:00:00 Completed [facility] [place] Influenza Virus Vaccine Quad ID 18-64 YRS 2014-12-27 00:00:00 Completed [facility] [place] Pneumococcal Polysaccharide, PPSV23 (PNEUMOVAX) 2014-12-27 00:00:00 Completed [facility] [place] Influenza Virus Vaccine Quad ID 18-64 YRS 2014-12-27 00:00:00 Completed [facility] [place] Pneumococcal Polysaccharide, PPSV23 (PNEUMOVAX) 2014-12-27 00:00:00 Completed [facility] [place] Influenza Virus Vaccine Quad ID 18-64 YRS 2014-12-27 00:00:00 Completed [facility] [place] Pneumococcal Polysaccharide, PPSV23 (PNEUMOVAX) 2014-12-27 00:00:00 Completed [facility] [place] Influenza Virus Vaccine Quad ID 18-64 YRS 2014-12-27 00:00:00 Completed [facility] [place] Pneumococcal Polysaccharide, PPSV23 (PNEUMOVAX) 2014-12-27 00:00:00 Completed [facility] [place] Influenza Virus Vaccine Quad ID 18-64 YRS 2014-12-27 00:00:00 Completed [facility] [place] Pneumococcal Polysaccharide, PPSV23 (PNEUMOVAX) 2014-12-27 00:00:00 Completed [facility] [place] Influenza Virus Vaccine Quad ID 18-64 YRS 2014-12-27 00:00:00 Completed [facility] [place] Pneumococcal Polysaccharide, PPSV23 (PNEUMOVAX) 2014-12-27 00:00:00 Completed [facility] [place] Influenza Virus Vaccine Quad ID 18-64 YRS 2014-12-27 00:00:00 Completed [facility] [place] Pneumococcal Polysaccharide, PPSV23 (PNEUMOVAX) 2014-12-27 00:00:00 Completed [facility] [place] Influenza Virus Vaccine Quad ID 18-64 YRS 2014-12-27 00:00:00 Completed [facility] [place] Pneumococcal Polysaccharide, PPSV23 (PNEUMOVAX) 2014-12-27 00:00:00 Completed [facility] [place] Influenza Virus Vaccine Quad ID 18-64 YRS 2014-12-27 00:00:00 Completed [facility] [place] Pneumococcal Polysaccharide, PPSV23 (PNEUMOVAX) 2014-12-27 00:00:00 Completed [facility] [place] Influenza Virus Vaccine Quad ID 18-64 YRS 2014-12-27 00:00:00 Completed Pneumococcal Polysaccharide, PPSV23 (PNEUMOVAX) 2014-12-27 00:00:00 Completed Influenza Virus Vaccine Quad ID 18-64 YRS 2014-12-27 00:00:00 Completed [facility] [place] Pneumococcal Polysaccharide, PPSV23 (PNEUMOVAX) 2014-12-27 00:00:00 Completed [facility] [place] Influenza Virus Vaccine - Whole 2013-12-19 00:00:00 Completed [facility] [place] Influenza Virus Vaccine - Whole 2013-12-19 00:00:00 Completed [facility] [place] Influenza Virus Vaccine - Whole 2013-12-19 00:00:00 Completed [facility] [place] Influenza Virus Vaccine - Whole 2013-12-19 00:00:00 Completed [facility] [place] Influenza Virus Vaccine - Whole 2013-12-19 00:00:00 Completed [facility] [place] Influenza Virus Vaccine - Whole 2013-12-19 00:00:00 Completed [facility] [place] Influenza Virus Vaccine - Whole 2013-12-19 00:00:00 Completed [facility] [place] Influenza Virus Vaccine - Whole 2013-12-19 00:00:00 Completed [facility] [place] Influenza Virus Vaccine - Whole 2013-12-19 00:00:00 Completed [facility] [place] Influenza Virus Vaccine - Whole 2013-12-19 00:00:00 Completed [facility] [place] Influenza Virus Vaccine - Whole 2013-12-19 00:00:00 Completed [facility] [place] Influenza Virus Vaccine - Whole 2013-12-19 00:00:00 Completed [facility] [place] Influenza Virus Vaccine - Whole 2013-12-19 00:00:00 Completed [facility] [place] Influenza Virus Vaccine - Whole 2013-12-19 00:00:00 Completed [facility] [place] Influenza Virus Vaccine - Whole 2013-12-19 00:00:00 Completed [facility] [place] Influenza Virus Vaccine - Whole 2013-12-19 00:00:00 Completed [facility] [place] Influenza Virus Vaccine - Whole 2013-12-19 00:00:00 Completed [facility] [place] Influenza Virus Vaccine - Whole 2013-12-19 00:00:00 Completed Pneumococcal Polysaccharide, PPSV23 (PNEUMOVAX) 2013-01-09 00:00:00 Completed [facility] [place] Pneumococcal Polysaccharide, PPSV23 (PNEUMOVAX) 2013-01-09 00:00:00 Completed [facility] [place] Pneumococcal Polysaccharide, PPSV23 (PNEUMOVAX) 2013-01-09 00:00:00 Completed [facility] [place] Pneumococcal Polysaccharide, PPSV23 (PNEUMOVAX) 2013-01-09 00:00:00 Completed [facility] [place] Pneumococcal Polysaccharide, PPSV23 (PNEUMOVAX) 2013-01-09 00:00:00 Completed [facility] [place] Pneumococcal Polysaccharide, PPSV23 (PNEUMOVAX) 2013-01-09 00:00:00 Completed [facility] [place] Pneumococcal Polysaccharide, PPSV23 (PNEUMOVAX) 2013-01-09 00:00:00 Completed [facility] [place] Pneumococcal Polysaccharide, PPSV23 (PNEUMOVAX) 2013-01-09 00:00:00 Completed [facility] [place] Pneumococcal Polysaccharide, PPSV23 (PNEUMOVAX) 2013-01-09 00:00:00 Completed [facility] [place] Pneumococcal Polysaccharide, PPSV23 (PNEUMOVAX) 2013-01-09 00:00:00 Completed [facility] [place] Pneumococcal Polysaccharide, PPSV23 (PNEUMOVAX) 2013-01-09 00:00:00 Completed [facility] [place] Pneumococcal Polysaccharide, PPSV23 (PNEUMOVAX) 2013-01-09 00:00:00 Completed [facility] [place] Pneumococcal Polysaccharide, PPSV23 (PNEUMOVAX) 2013-01-09 00:00:00 Completed [facility] [place] Pneumococcal Polysaccharide, PPSV23 (PNEUMOVAX) 2013-01-09 00:00:00 Completed [facility] [place] Pneumococcal Polysaccharide, PPSV23 (PNEUMOVAX) 2013-01-09 00:00:00 Completed [facility] [place] Pneumococcal Polysaccharide, PPSV23 (PNEUMOVAX) 2013-01-09 00:00:00 Completed [facility] [place] Pneumococcal Polysaccharide, PPSV23 (PNEUMOVAX) 2013-01-09 00:00:00 Completed [facility] [place] Pneumococcal Polysaccharide, PPSV23 (PNEUMOVAX) 2013-01-09 00:00:00 Completed Influenza Virus Vaccine Quad ID 18-64 YRS Unknown Completed [facility] [place] TDAP Unknown Completed [facility] [place] Zoster(Zostavax)(Sh ingles) Unknown Completed [facility] [place] Influenza Virus Vaccine Unknown Completed [facility] [place] Pneumococcal 13 Conjugate, PCV13 (Prevnar 13) Unknown Completed [facility] [place] SARS-COV-2 COVID-19 MODERNA 12+ YRS VACCINE Unknown Completed [facility] [place] Pneumococcal Polysaccharide, PPSV23 (PNEUMOVAX) Unknown Completed [facility] Influenza High Dose Quad Unknown Completed [facility] [place] Influenza High Dose Unknown Completed [facility] [place] SARS-COV-2 COVID-19 PFIZER MARLENA-SUCROSE VACCINE (HERNANDEZ TOP) Unknown Completed [facility] Influenza Virus Vaccine - Whole Unknown Completed [facility] Influenza Virus Vaccine,quad Im,preserve Free 65+ (FLUAD) Unknown Completed [facility] [place] Influenza Virus Vaccine Quad ID 18-64 YRS Unknown Completed [facility] [place] TDAP Unknown Completed [facility] [place] Zoster(Zostavax)(Sh ingles) Unknown Completed [facility] [place] Influenza Virus Vaccine Unknown Completed [facility] [place] Pneumococcal 13 Conjugate, PCV13 (Prevnar 13) Unknown Completed [facility] [place] SARS-COV-2 COVID-19 MODERNA 12+ YRS VACCINE Unknown Completed [facility] [place] Pneumococcal Polysaccharide, PPSV23 (PNEUMOVAX) Unknown Completed [facility] Influenza High Dose Quad Unknown Completed [facility] [place] Influenza High Dose Unknown Completed [facility] [place] SARS-COV-2 COVID-19 PFIZER MARLENA-SUCROSE VACCINE (HERNANDEZ TOP) Unknown Completed [facility] Influenza Virus Vaccine - Whole Unknown Completed [facility] Influenza Virus Vaccine,quad Im,preserve Free 65+ (FLUAD) Unknown Completed [facility] [place] Influenza Virus Vaccine Quad ID 18-64 YRS Unknown Completed [facility] [place] TDAP Unknown Completed [facility] [place] Zoster(Zostavax)(Sh ingles) Unknown Completed [facility] [place] Influenza Virus Vaccine Unknown Completed [facility] [place] Pneumococcal 13 Conjugate, PCV13 (Prevnar 13) Unknown Completed [facility] [place] SARS-COV-2 COVID-19 MODERNA 12+ YRS VACCINE Unknown Completed [facility] [place] Pneumococcal Polysaccharide, PPSV23 (PNEUMOVAX) Unknown Completed [facility] Influenza High Dose Quad Unknown Completed [facility] [place] Influenza High Dose Unknown Completed [facility] [place] SARS-COV-2 COVID-19 PFIZER MARLENA-SUCROSE VACCINE (HERNANDEZ TOP) Unknown Completed [facility] Influenza Virus Vaccine - Whole Unknown Completed [facility] Influenza Virus Vaccine,quad Im,preserve Free 65+ (FLUAD) Unknown Completed [facility] [place] Influenza Virus Vaccine Quad ID 18-64 YRS Unknown Completed [facility] [place] TDAP Unknown Completed [facility] [place] Zoster(Zostavax)(Sh ingles) Unknown Completed [facility] [place] Influenza Virus Vaccine Unknown Completed [facility] [place] Pneumococcal 13 Conjugate, PCV13 (Prevnar 13) Unknown Completed [facility] [place] SARS-COV-2 COVID-19 MODERNA 12+ YRS VACCINE Unknown Completed [facility] [place] SARS-COV-2 COVID-19 PFIZER MARLENA-SUCROSE VACCINE (HERNANDEZ TOP) Unknown Completed [facility] Influenza Virus Vaccine - Whole Unknown Completed [facility] Influenza Virus Vaccine,quad Im,preserve Free 65+ (FLUAD) Unknown Completed [facility] [place] Influenza High Dose Unknown Completed [facility] [place] Influenza High Dose Quad Unknown Completed [facility] [place] Pneumococcal Polysaccharide, PPSV23 (PNEUMOVAX) Unknown Completed [facility] Influenza Virus Vaccine Quad ID 18-64 YRS Unknown Completed [facility] [place] Zoster(Zostavax)(Sh ingles) Unknown Completed [facility] [place] Influenza Virus Vaccine Unknown Completed [facility] [place] Pneumococcal 13 Conjugate, PCV13 (Prevnar 13) Unknown Completed [facility] [place] SARS-COV-2 COVID-19 PFIZER MARLENA-SUCROSE VACCINE (HERNANDEZ TOP) Unknown Completed [facility] Influenza Virus Vaccine - Whole Unknown Completed [facility] Influenza Virus Vaccine,quad Im,preserve Free 65+ (FLUAD) Unknown Completed [facility] [place] Pneumococcal Polysaccharide, PPSV23 (PNEUMOVAX) Unknown Completed [facility] TDAP Unknown Completed [facility] [place] SARS-COV-2 COVID-19 MODERNA 12+ YRS VACCINE Unknown Completed [facility] [place] Pneumococcal Polysaccharide, PPSV23 (PNEUMOVAX) Unknown Completed [facility] Influenza High Dose Quad Unknown Completed [facility] [place] Influenza High Dose Unknown Completed [facility] [place] Influenza Virus Vaccine Quad ID 18-64 YRS Unknown Completed [facility] [place] Zoster(Zostavax)(Sh ingles) Unknown Completed [facility] [place] Influenza Virus Vaccine Unknown Completed [facility] Pneumococcal 13 Conjugate, PCV13 (Prevnar 13) Unknown Completed [facility] SARS-COV-2 COVID-19 PFIZER MARLENA-SUCROSE VACCINE (HERNANDEZ TOP) Unknown Completed [facility] Influenza Virus Vaccine - Whole Unknown Completed [facility] Influenza Virus Vaccine,quad Im,preserve Free 65+ (FLUAD) Unknown Completed [facility] Pneumococcal Polysaccharide, PPSV23 (PNEUMOVAX) Unknown Completed [facility] TDAP Unknown Completed [facility] SARS-COV-2 COVID-19 MODERNA 12+ YRS VACCINE Unknown Completed [facility] Pneumococcal Polysaccharide, PPSV23 (PNEUMOVAX) Unknown Completed [facility] Influenza High Dose Quad Unknown Completed [facility] Influenza High Dose Unknown Completed [facility] Influenza Virus Vaccine Quad ID 18-64 YRS Unknown Completed [facility] Pneumococcal Polysaccharide, PPSV23 (PNEUMOVAX) Unknown Completed [facility] TDAP Unknown Completed [facility] Zoster(Zostavax)(Sh ingles) Unknown Completed [facility] Influenza Virus Vaccine Unknown Completed [facility] Pneumococcal 13 Conjugate, PCV13 (Prevnar 13) Unknown Completed [facility] SARS-COV-2 COVID-19 MODERNA 12+ YRS VACCINE Unknown Completed [facility] Influenza High Dose Quad Unknown Completed [facility] Influenza High Dose Unknown Completed [facility] SARS-COV-2 COVID-19 PFIZER MARLENA-SUCROSE VACCINE (HERNANDEZ TOP) Unknown Completed [facility] Influenza Virus Vaccine - Whole Unknown Completed [facility] Influenza Virus Vaccine,quad Im,preserve Free 65+ (FLUAD) Unknown Completed [facility] Influenza Virus Vaccine Quad ID 18-64 YRS Unknown Completed [facility] Pneumococcal Polysaccharide, PPSV23 (PNEUMOVAX) Unknown Completed [facility] TDAP Unknown Completed [facility] Zoster(Zostavax)(Sh ingles) Unknown Completed [facility] Influenza Virus Vaccine Unknown Completed [facility] Pneumococcal 13 Conjugate, PCV13 (Prevnar 13) Unknown Completed [facility] SARS-COV-2 COVID-19 MODERNA 12+ YRS VACCINE Unknown Completed [facility] Influenza High Dose Quad Unknown Completed [facility] Influenza High Dose Unknown Completed [facility] SARS-COV-2 COVID-19 PFIZER MARLENA-SUCROSE VACCINE (HERNANDEZ TOP) Unknown Completed [facility] Influenza Virus Vaccine - Whole Unknown Completed [facility] Influenza Virus Vaccine,quad Im,preserve Free 65+ (FLUAD) Unknown Completed [facility] Influenza Virus Vaccine Quad ID 18-64 YRS Unknown Completed [facility] TDAP Unknown Completed [facility] Zoster(Zostavax)(Sh ingles) Unknown Completed [facility] Influenza Virus Vaccine Unknown Completed [facility] Pneumococcal 13 Conjugate, PCV13 (Prevnar 13) Unknown Completed [facility] SARS-COV-2 COVID-19 MODERNA 12+ YRS VACCINE Unknown Completed [facility] SARS-COV-2 COVID-19 PFIZER MARLENA-SUCROSE VACCINE (HERNANDEZ TOP) Unknown Completed [facility] Influenza Virus Vaccine - Whole Unknown Completed [facility] Influenza Virus Vaccine,quad Im,preserve Free 65+ (FLUAD) Unknown Completed [facility] Influenza High Dose Unknown Completed [facility] Influenza High Dose Quad Unknown Completed [facility] Pneumococcal Polysaccharide, PPSV23 (PNEUMOVAX) Unknown Completed [facility] Influenza Virus Vaccine Quad ID 18-64 YRS Unknown Completed [facility] Pneumococcal Polysaccharide, PPSV23 (PNEUMOVAX) Unknown Completed [facility] TDAP Unknown Completed [facility] Zoster(Zostavax)( ingles) Unknown Completed [facility] Influenza Virus Vaccine Unknown Completed [facility] Pneumococcal 13 Conjugate, PCV13 (Prevnar 13) Unknown Completed [facility] SARS-COV-2 COVID-19 MODERNA 12+ YRS VACCINE Unknown Completed [facility] Influenza High Dose Quad Unknown Completed [facility] Influenza High Dose Unknown Completed [facility] SARS-COV-2 COVID-19 PFIZER MARLENA-SUCROSE VACCINE (HERNANDEZ TOP) Unknown Completed [facility] Influenza Virus Vaccine - Whole Unknown Completed [facility] Influenza Virus Vaccine,quad Im,preserve Free 65+ (FLUAD) Unknown Completed [facility] Influenza Virus Vaccine Quad ID 18-64 YRS Unknown Completed [facility] Pneumococcal Polysaccharide, PPSV23 (PNEUMOVAX) Unknown Completed [facility] TDAP Unknown Completed [facility] Zoster(Zostavax)(Sh ingles) Unknown Completed [facility] Influenza Virus Vaccine Unknown Completed [facility] Pneumococcal 13 Conjugate, PCV13 (Prevnar 13) Unknown Completed [facility] SARS-COV-2 COVID-19 MODERNA 12+ YRS VACCINE Unknown Completed [facility] Influenza High Dose Quad Unknown Completed [facility] Influenza High Dose Unknown Completed [facility] SARS-COV-2 COVID-19 PFIZER MARLENA-SUCROSE VACCINE (HERNANDEZ TOP) Unknown Completed [facility] Influenza Virus Vaccine - Whole Unknown Completed [facility] Influenza Virus Vaccine,quad Im,preserve Free 65+ (FLUAD) Unknown Completed [facility] Influenza Virus Vaccine Quad ID 18-64 YRS Unknown Completed [facility] Pneumococcal Polysaccharide, PPSV23 (PNEUMOVAX) Unknown Completed [facility] TDAP Unknown Completed [facility] Zoster(Zostavax)(Sh ingles) Unknown Completed [facility] Influenza Virus Vaccine Unknown Completed [facility] Pneumococcal 13 Conjugate, PCV13 (Prevnar 13) Unknown Completed [facility] SARS-COV-2 COVID-19 MODERNA 12+ YRS VACCINE Unknown Completed [facility] Influenza High Dose Quad Unknown Completed [facility] Influenza High Dose Unknown Completed [facility] SARS-COV-2 COVID-19 PFIZER MARLENA-SUCROSE VACCINE (HERNANDEZ TOP) Unknown Completed [facility] Influenza Virus Vaccine - Whole Unknown Completed [facility] Influenza Virus Vaccine,quad Im,preserve Free 65+ (FLUAD) Unknown Completed [facility] Influenza Virus Vaccine Quad ID 18-64 YRS Unknown Completed [facility] Pneumococcal Polysaccharide, PPSV23 (PNEUMOVAX) Unknown Completed [facility] TDAP Unknown Completed [facility] Zoster(Zostavax)(Sh ingles) Unknown Completed [facility] Influenza Virus Vaccine Unknown Completed [facility] Pneumococcal 13 Conjugate, PCV13 (Prevnar 13) Unknown Completed [facility] SARS-COV-2 COVID-19 MODERNA 12+ YRS VACCINE Unknown Completed [facility] Influenza High Dose Quad Unknown Completed [facility] Influenza High Dose Unknown Completed [facility] SARS-COV-2 COVID-19 PFIZER MARLENA-SUCROSE VACCINE (HERNANDEZ TOP) Unknown Completed [facility] Influenza Virus Vaccine - Whole Unknown Completed [facility] Influenza Virus Vaccine,quad Im,preserve Free 65+ (FLUAD) Unknown Completed [facility] Influenza Virus Vaccine Quad ID 18-64 YRS Unknown Completed [facility] Pneumococcal Polysaccharide, PPSV23 (PNEUMOVAX) Unknown Completed [facility] TDAP Unknown Completed [facility] Zoster(Zostavax)( ingles) Unknown Completed [facility] Influenza Virus Vaccine Unknown Completed [facility] Pneumococcal 13 Conjugate, PCV13 (Prevnar 13) Unknown Completed [facility] SARS-COV-2 COVID-19 MODERNA 12+ YRS VACCINE Unknown Completed [facility] Influenza High Dose Quad Unknown Completed [facility] Influenza High Dose Unknown Completed [facility] SARS-COV-2 COVID-19 PFIZER MARLENA-SUCROSE VACCINE (HERNANDEZ TOP) Unknown Completed [facility] Influenza Virus Vaccine - Whole Unknown Completed [facility] Influenza Virus Vaccine,quad Im,preserve Free 65+ (FLUAD) Unknown Completed [facility] Influenza Virus Vaccine Quad ID 18-64 YRS Unknown Completed [facility] Zoster(Zostavax)( ingles) Unknown Completed [facility] Influenza Virus Vaccine Unknown Completed [facility] Pneumococcal 13 Conjugate, PCV13 (Prevnar 13) Unknown Completed [facility] SARS-COV-2 COVID-19 PFIZER MARLENA-SUCROSE VACCINE (HERNANDEZ TOP) Unknown Completed [facility] Influenza Virus Vaccine - Whole Unknown Completed [facility] Influenza Virus Vaccine,quad Im,preserve Free 65+ (FLUAD) Unknown Completed [facility] Pneumococcal Polysaccharide, PPSV23 (PNEUMOVAX) Unknown Completed [facility] TDAP Unknown Completed [facility] SARS-COV-2 COVID-19 MODERNA 12+ YRS VACCINE Unknown Completed [facility] Pneumococcal Polysaccharide, PPSV23 (PNEUMOVAX) Unknown Completed [facility] Influenza High Dose Quad Unknown Completed [facility] Influenza High Dose Unknown Completed [facility] Influenza Virus Vaccine Quad ID 18-64 YRS Unknown Completed [facility] Pneumococcal Polysaccharide, PPSV23 (PNEUMOVAX) Unknown Completed [facility] TDAP Unknown Completed [facility] Zoster(Zostavax)(Sh ingles) Unknown Completed [facility] Influenza Virus Vaccine Unknown Completed [facility] Pneumococcal 13 Conjugate, PCV13 (Prevnar 13) Unknown Completed [facility] SARS-COV-2 COVID-19 MODERNA 12+ YRS VACCINE Unknown Completed [facility] Influenza High Dose Quad Unknown Completed [facility] Influenza High Dose Unknown Completed [facility] SARS-COV-2 COVID-19 PFIZER MARLENA-SUCROSE VACCINE (HERNANDEZ TOP) Unknown Completed [facility] Influenza Virus Vaccine - Whole Unknown Completed [facility] Influenza Virus Vaccine,quad Im,preserve Free 65+ (FLUAD) Unknown Completed [facility] Pneumococcal Polysaccharide, PPSV23 (PNEUMOVAX) Unknown Completed [facility] Influenza Virus Vaccine Quad ID 18-64 YRS Unknown Completed [facility] Pneumococcal Polysaccharide, PPSV23 (PNEUMOVAX) Unknown Completed [facility] TDAP Unknown Completed [facility] Zoster(Zostavax)( charles) Unknown Completed [facility] Influenza Virus Vaccine Unknown Completed [facility] Pneumococcal 13 Conjugate, PCV13 (Prevnar 13) Unknown Completed [facility] SARS-COV-2 COVID-19 MODERNA 12+ YRS VACCINE Unknown Completed [facility] Influenza High Dose Quad Unknown Completed [facility] Influenza High Dose Unknown Completed [facility] SARS-COV-2 COVID-19 PFIZER MARLENA-SUCROSE VACCINE (HERNANDEZ TOP) Unknown Completed [facility] Influenza Virus Vaccine - Whole Unknown Completed [facility] Influenza Virus Vaccine,quad Im,preserve Free 65+ (FLUAD) Unknown Completed [facility] Influenza Virus Vaccine Quad ID 18-64 YRS Unknown Completed [facility] Pneumococcal Polysaccharide, PPSV23 (PNEUMOVAX) Unknown Completed [facility] TDAP Unknown Completed [facility] Zoster(Zostavax)( ingles) Unknown Completed [facility] Influenza Virus Vaccine Unknown Completed [facility] Pneumococcal 13 Conjugate, PCV13 (Prevnar 13) Unknown Completed [facility] SARS-COV-2 COVID-19 MODERNA 12+ YRS VACCINE Unknown Completed [facility] Influenza High Dose Quad Unknown Completed [facility] Influenza High Dose Unknown Completed [facility] SARS-COV-2 COVID-19 PFIZER MARLENA-SUCROSE VACCINE (HERNANDEZ TOP) Unknown Completed [facility] Influenza Virus Vaccine - Whole Unknown Completed [facility] Influenza Virus Vaccine,quad Im,preserve Free 65+ (FLUAD) Unknown Completed [facility] Influenza Virus Vaccine Quad ID 18-64 YRS Unknown Completed [facility] Pneumococcal Polysaccharide, PPSV23 (PNEUMOVAX) Unknown Completed [facility] TDAP Unknown Completed [facility] Zoster(Zostavax)(Sh ingles) Unknown Completed [facility] Influenza Virus Vaccine Unknown Completed [facility] Pneumococcal 13 Conjugate, PCV13 (Prevnar 13) Unknown Completed [facility] SARS-COV-2 COVID-19 MODERNA 12+ YRS VACCINE Unknown Completed [facility] Influenza High Dose Quad Unknown Completed [facility] Influenza High Dose Unknown Completed [facility] SARS-COV-2 COVID-19 PFIZER MARLENA-SUCROSE VACCINE (HERNANDEZ TOP) Unknown Completed [facility] Influenza Virus Vaccine - Whole Unknown Completed [facility] Influenza Virus Vaccine,quad Im,preserve Free 65+ (FLUAD) Unknown Completed [facility] Influenza Virus Vaccine Quad ID 18-64 YRS Unknown Completed [facility] Zoster(Zostavax)(Sh ingles) Unknown Completed [facility] Influenza Virus Vaccine Unknown Completed [facility] Pneumococcal 13 Conjugate, PCV13 (Prevnar 13) Unknown Completed [facility] SARS-COV-2 COVID-19 PFIZER MARLENA-SUCROSE VACCINE (HERNANDEZ TOP) Unknown Completed [facility] Influenza Virus Vaccine - Whole Unknown Completed [facility] Influenza Virus Vaccine,quad Im,preserve Free 65+ (FLUAD) Unknown Completed [facility] Pneumococcal Polysaccharide, PPSV23 (PNEUMOVAX) Unknown Completed [facility] TDAP Unknown Completed [facility] SARS-COV-2 COVID-19 MODERNA 12+ YRS VACCINE Unknown Completed [facility] Pneumococcal Polysaccharide, PPSV23 (PNEUMOVAX) Unknown Completed [facility] Influenza High Dose Quad Unknown Completed [facility] Influenza High Dose Unknown Completed [facility] Influenza Virus Vaccine Quad ID 18-64 YRS Unknown Completed [facility] Pneumococcal Polysaccharide, PPSV23 (PNEUMOVAX) Unknown Completed [facility] TDAP Unknown Completed [facility] Zoster(Zostavax)(Sh ingles) Unknown Completed [facility] Influenza Virus Vaccine Unknown Completed [facility] Pneumococcal 13 Conjugate, PCV13 (Prevnar 13) Unknown Completed [facility] SARS-COV-2 COVID-19 MODERNA 12+ YRS VACCINE Unknown Completed [facility] Influenza High Dose Quad Unknown Completed [facility] Influenza High Dose Unknown Completed [facility] SARS-COV-2 COVID-19 PFIZER MARLENA-SUCROSE VACCINE (HERNANDEZ TOP) Unknown Completed [facility] Influenza Virus Vaccine - Whole Unknown Completed [facility] Influenza Virus Vaccine,quad Im,preserve Free 65+ (FLUAD) Unknown Completed [facility] Influenza Virus Vaccine Quad ID 18-64 YRS Unknown Completed [facility] Pneumococcal Polysaccharide, PPSV23 (PNEUMOVAX) Unknown Completed [facility] TDAP Unknown Completed [facility] Zoster(Zostavax)( ingles) Unknown Completed [facility] Influenza Virus Vaccine Unknown Completed [facility] Pneumococcal 13 Conjugate, PCV13 (Prevnar 13) Unknown Completed [facility] SARS-COV-2 COVID-19 MODERNA 12+ YRS VACCINE Unknown Completed [facility] Influenza High Dose Quad Unknown Completed [facility] Influenza High Dose Unknown Completed [facility] SARS-COV-2 COVID-19 PFIZER MARLENA-SUCROSE VACCINE (HERNANDEZ TOP) Unknown Completed [facility] Influenza Virus Vaccine - Whole Unknown Completed [facility] Influenza Virus Vaccine,quad Im,preserve Free 65+ (FLUAD) Unknown Completed [facility] Influenza Virus Vaccine Quad ID 18-64 YRS Unknown Completed [facility] Pneumococcal Polysaccharide, PPSV23 (PNEUMOVAX) Unknown Completed [facility] TDAP Unknown Completed [facility] Zoster(Zostavax)(Sh ingles) Unknown Completed [facility] Influenza Virus Vaccine Unknown Completed [facility] Pneumococcal 13 Conjugate, PCV13 (Prevnar 13) Unknown Completed [facility] SARS-COV-2 COVID-19 MODERNA 12+ YRS VACCINE Unknown Completed [facility] Influenza High Dose Quad Unknown Completed [facility] Influenza High Dose Unknown Completed [facility] SARS-COV-2 COVID-19 PFIZER MRALENA-SUCROSE VACCINE (HERNANDEZ TOP) Unknown Completed [facility] Influenza Virus Vaccine - Whole Unknown Completed [facility] Influenza Virus Vaccine,quad Im,preserve Free 65+ (FLUAD) Unknown Completed [facility] Influenza Virus Vaccine Quad ID 18-64 YRS Unknown Completed [facility] Pneumococcal Polysaccharide, PPSV23 (PNEUMOVAX) Unknown Completed [facility] TDAP Unknown Completed [facility] Zoster(Zostavax)(Sh ingles) Unknown Completed [facility] Influenza Virus Vaccine Unknown Completed [facility] Pneumococcal 13 Conjugate, PCV13 (Prevnar 13) Unknown Completed [facility] SARS-COV-2 COVID-19 MODERNA 12+ YRS VACCINE Unknown Completed [facility] Influenza High Dose Quad Unknown Completed [facility] Influenza High Dose Unknown Completed [facility] SARS-COV-2 COVID-19 PFIZER MARLENA-SUCROSE VACCINE (HERNANDEZ TOP) Unknown Completed [facility] Influenza Virus Vaccine - Whole Unknown Completed [facility] Influenza Virus Vaccine,quad Im,preserve Free 65+ (FLUAD) Unknown Completed [facility] Influenza Virus Vaccine Quad ID 18-64 YRS Unknown Completed [facility] Pneumococcal Polysaccharide, PPSV23 (PNEUMOVAX) Unknown Completed [facility] TDAP Unknown Completed [facility] Zoster(Zostavax)(Sh ingles) Unknown Completed [facility] Influenza Virus Vaccine Unknown Completed [facility] Pneumococcal 13 Conjugate, PCV13 (Prevnar 13) Unknown Completed [facility] SARS-COV-2 COVID-19 MODERNA 12+ YRS VACCINE Unknown Completed [facility] Influenza High Dose Quad Unknown Completed [facility] Influenza High Dose Unknown Completed [facility] SARS-COV-2 COVID-19 PFIZER MARLENA-SUCROSE VACCINE (HERNANDEZ TOP) Unknown Completed [facility] Influenza Virus Vaccine - Whole Unknown Completed [facility] [facility] Influenza Virus Vaccine,quad Im,preserve Free 65+ (FLUAD) Unknown Completed [facility] Influenza Virus Vaccine Quad ID 18-64 YRS Unknown Completed [facility] Pneumococcal Polysaccharide, PPSV23 (PNEUMOVAX) Unknown Completed [facility] TDAP Unknown Completed [facility] Zoster(Zostavax)(Sh ingles) Unknown Completed [facility] Influenza Virus Vaccine Unknown Completed [facility] Pneumococcal 13 Conjugate, PCV13 (Prevnar 13) Unknown Completed [facility] SARS-COV-2 COVID-19 MODERNA 12+ YRS VACCINE Unknown Completed [facility] Influenza High Dose Quad Unknown Completed [facility] Influenza High Dose Unknown Completed [facility] SARS-COV-2 COVID-19 PFIZER MARLENA-SUCROSE VACCINE (HERNANDEZ TOP) Unknown Completed [facility] Influenza Virus Vaccine - Whole Unknown Completed [facility] Influenza Virus Vaccine,quad Im,preserve Free 65+ (FLUAD) Unknown Completed [facility] Influenza Virus Vaccine Quad ID 18-64 YRS Unknown Completed [facility] Pneumococcal Polysaccharide, PPSV23 (PNEUMOVAX) Unknown Completed [facility] TDAP Unknown Completed [facility] Zoster(Zostavax)(Sh ingles) Unknown Completed [facility] Influenza Virus Vaccine Unknown Completed [facility] Pneumococcal 13 Conjugate, PCV13 (Prevnar 13) Unknown Completed [facility] SARS-COV-2 COVID-19 MODERNA 12+ YRS VACCINE Unknown Completed [facility] Influenza High Dose Quad Unknown Completed [facility] Influenza High Dose Unknown Completed [facility] SARS-COV-2 COVID-19 PFIZER MARLENA-SUCROSE VACCINE (HERNANDEZ TOP) Unknown Completed [facility] Influenza Virus Vaccine - Whole Unknown Completed [facility] Influenza Virus Vaccine,quad Im,preserve Free 65+ (FLUAD) Unknown Completed [facility] Influenza Virus Vaccine Quad ID 18-64 YRS Unknown Completed [facility] Pneumococcal Polysaccharide, PPSV23 (PNEUMOVAX) Unknown Completed [facility] TDAP Unknown Completed [facility] Zoster(Zostavax)(Sh ingles) Unknown Completed [facility] Influenza Virus Vaccine Unknown Completed [facility] Pneumococcal 13 Conjugate, PCV13 (Prevnar 13) Unknown Completed [facility] SARS-COV-2 COVID-19 MODERNA 12+ YRS VACCINE Unknown Completed [facility] Pneumococcal Polysaccharide, PPSV23 (PNEUMOVAX) Unknown Completed [facility] Influenza High Dose Quad Unknown Completed [facility] Influenza High Dose Unknown Completed [facility] SARS-COV-2 COVID-19 PFIZER MARLENA-SUCROSE VACCINE (HERNANDEZ TOP) Unknown Completed [facility] Influenza Virus Vaccine - Whole Unknown Completed [facility] Influenza Virus Vaccine,quad Im,preserve Free 65+ (FLUAD) Unknown Completed [facility] Influenza Virus Vaccine Quad ID 18-64 YRS Unknown Completed [facility] Pneumococcal Polysaccharide, PPSV23 (PNEUMOVAX) Unknown Completed [facility] TDAP Unknown Completed [facility] Zoster(Zostavax)(Sh ingles) Unknown Completed [facility] Influenza Virus Vaccine Unknown Completed [facility] Pneumococcal 13 Conjugate, PCV13 (Prevnar 13) Unknown Completed [facility] SARS-COV-2 COVID-19 MODERNA 12+ YRS VACCINE Unknown Completed [facility] Influenza High Dose Quad Unknown Completed [facility] Influenza High Dose Unknown Completed [facility] SARS-COV-2 COVID-19 PFIZER MARLENA-SUCROSE VACCINE (HERNANDEZ TOP) Unknown Completed [facility] Influenza Virus Vaccine - Whole Unknown Completed [facility] Influenza Virus Vaccine,quad Im,preserve Free 65+ (FLUAD) Unknown Completed [facility] Influenza Virus Vaccine Quad ID 18-64 YRS Unknown Completed [facility] Zoster(Zostavax)(Sh ingles) Unknown Completed [facility] Influenza Virus Vaccine Unknown Completed [facility] Pneumococcal 13 Conjugate, PCV13 (Prevnar 13) Unknown Completed [facility] SARS-COV-2 COVID-19 PFIZER MARLENA-SUCROSE VACCINE (HERNANDEZ TOP) Unknown Completed [facility] Influenza Virus Vaccine - Whole Unknown Completed [facility] Influenza Virus Vaccine,quad Im,preserve Free 65+ (FLUAD) Unknown Completed [facility] Pneumococcal Polysaccharide, PPSV23 (PNEUMOVAX) Unknown Completed [facility] TDAP Unknown Completed [facility] SARS-COV-2 COVID-19 MODERNA 12+ YRS VACCINE Unknown Completed [facility] Pneumococcal Polysaccharide, PPSV23 (PNEUMOVAX) Unknown Completed [facility] Influenza High Dose Quad Unknown Completed [facility] Influenza High Dose Unknown Completed [facility] Influenza Virus Vaccine Quad ID 18-64 YRS Unknown Completed [facility] Pneumococcal Polysaccharide, PPSV23 (PNEUMOVAX) Unknown Completed [facility] TDAP Unknown Completed [facility] Zoster(Zostavax)(Juan ingmitali) Unknown Completed [facility] Influenza Virus Vaccine Unknown Completed [facility] Pneumococcal 13 Conjugate, PCV13 (Prevnar 13) Unknown Completed [facility] SARS-COV-2 COVID-19 MODERNA 12+ YRS VACCINE Unknown Completed [facility] Influenza High Dose Quad Unknown Completed [facility] Influenza High Dose Unknown Completed [facility] SARS-COV-2 COVID-19 PFIZER MARLENA-SUCROSE VACCINE (HERNANDEZ TOP) Unknown Completed [facility] Influenza Virus Vaccine - Whole Unknown Completed [facility] Influenza Virus Vaccine,quad Im,preserve Free 65+ (FLUAD) Unknown Completed [facility] Influenza Virus Vaccine Quad ID 18-64 YRS Unknown Completed [facility] Pneumococcal Polysaccharide, PPSV23 (PNEUMOVAX) Unknown Completed [facility] TDAP Unknown Completed [facility] Zoster(Zostavax)(Juan soto) Unknown Completed [facility] Influenza Virus Vaccine Unknown Completed [facility] Pneumococcal 13 Conjugate, PCV13 (Prevnar 13) Unknown Completed [facility] SARS-COV-2 COVID-19 MODERNA 12+ YRS VACCINE Unknown Completed [facility] Influenza High Dose Quad Unknown Completed [facility] Influenza High Dose Unknown Completed [facility] SARS-COV-2 COVID-19 PFIZER MARLENA-SUCROSE VACCINE (HERNANDEZ TOP) Unknown Completed [facility] Influenza Virus Vaccine - Whole Unknown Completed [facility] Influenza Virus Vaccine,quad Im,preserve Free 65+ (FLUAD) Unknown Completed [facility] Influenza Virus Vaccine Quad ID 18-64 YRS Unknown Completed [facility] Pneumococcal Polysaccharide, PPSV23 (PNEUMOVAX) Unknown Completed [facility] TDAP Unknown Completed [facility] Zoster(Zostavax)(Juan ingmitali) Unknown Completed [facility] Influenza Virus Vaccine Unknown Completed [facility] Pneumococcal 13 Conjugate, PCV13 (Prevnar 13) Unknown Completed [facility] SARS-COV-2 COVID-19 MODERNA 12+ YRS VACCINE Unknown Completed [facility] Influenza High Dose Quad Unknown Completed [facility] Influenza High Dose Unknown Completed [facility] SARS-COV-2 COVID-19 PFIZER MARLENA-SUCROSE VACCINE (HERNANDEZ TOP) Unknown Completed [facility] Influenza Virus Vaccine - Whole Unknown Completed [facility] Influenza Virus Vaccine,quad Im,preserve Free 65+ (FLUAD) Unknown Completed [facility] Influenza Virus Vaccine Quad ID 18-64 YRS Unknown Completed [facility] Zoster(Zostavax)(Sh ingles) Unknown Completed [facility] Influenza Virus Vaccine Unknown Completed [facility] Pneumococcal 13 Conjugate, PCV13 (Prevnar 13) Unknown Completed [facility] SARS-COV-2 COVID-19 PFIZER MARLENA-SUCROSE VACCINE (HERNANDEZ TOP) Unknown Completed [facility] Influenza Virus Vaccine - Whole Unknown Completed [facility] Influenza Virus Vaccine,quad Im,preserve Free 65+ (FLUAD) Unknown Completed [facility] Pneumococcal Polysaccharide, PPSV23 (PNEUMOVAX) Unknown Completed [facility] TDAP Unknown Completed [facility] SARS-COV-2 COVID-19 MODERNA 12+ YRS VACCINE Unknown Completed [facility] Pneumococcal Polysaccharide, PPSV23 (PNEUMOVAX) Unknown Completed [facility] Influenza High Dose Quad Unknown Completed [facility] Influenza High Dose Unknown Completed [facility] Influenza Virus Vaccine Quad ID 18-64 YRS Unknown Completed [facility] Pneumococcal Polysaccharide, PPSV23 (PNEUMOVAX) Unknown Completed [facility] TDAP Unknown Completed [facility] Zoster(Zostavax)(Sh ingles) Unknown Completed [facility] Influenza Virus Vaccine Unknown Completed [facility] Pneumococcal 13 Conjugate, PCV13 (Prevnar 13) Unknown Completed [facility] SARS-COV-2 COVID-19 MODERNA 12+ YRS VACCINE Unknown Completed [facility] Influenza High Dose Quad Unknown Completed [facility] Influenza High Dose Unknown Completed [facility] SARS-COV-2 COVID-19 PFIZER MARLENA-SUCROSE VACCINE (HERNANDEZ TOP) Unknown Completed [facility] Influenza Virus Vaccine - Whole Unknown Completed [facility] Influenza Virus Vaccine,quad Im,preserve Free 65+ (FLUAD) Unknown Completed [facility] Influenza Virus Vaccine Quad ID 18-64 YRS Unknown Completed [facility] Pneumococcal Polysaccharide, PPSV23 (PNEUMOVAX) Unknown Completed [facility] TDAP Unknown Completed [facility] Zoster(Zostavax)(Sh ingles) Unknown Completed [facility] Influenza Virus Vaccine Unknown Completed [facility] Pneumococcal 13 Conjugate, PCV13 (Prevnar 13) Unknown Completed [facility] SARS-COV-2 COVID-19 MODERNA 12+ YRS VACCINE Unknown Completed [facility] Influenza High Dose Quad Unknown Completed [facility] Influenza High Dose Unknown Completed [facility] SARS-COV-2 COVID-19 PFIZER MARLENA-SUCROSE VACCINE (HERNANDEZ TOP) Unknown Completed [facility] Influenza Virus Vaccine - Whole Unknown Completed [facility] Influenza Virus Vaccine,quad Im,preserve Free 65+ (FLUAD) Unknown Completed [facility] Influenza Virus Vaccine Quad ID 18-64 YRS Unknown Completed [facility] Pneumococcal Polysaccharide, PPSV23 (PNEUMOVAX) Unknown Completed [facility] TDAP Unknown Completed [facility] Zoster(Zostavax)(Juan soto) Unknown Completed [facility] Influenza Virus Vaccine Unknown Completed [facility] Pneumococcal 13 Conjugate, PCV13 (Prevnar 13) Unknown Completed [facility] SARS-COV-2 COVID-19 MODERNA 12+ YRS VACCINE Unknown Completed [facility] Influenza High Dose Quad Unknown Completed [facility] Influenza High Dose Unknown Completed [facility] SARS-COV-2 COVID-19 PFIZER MARLENA-SUCROSE VACCINE (HERNANDEZ TOP) Unknown Completed [facility] Influenza Virus Vaccine - Whole Unknown Completed [facility] Influenza Virus Vaccine,quad Im,preserve Free 65+ (FLUAD) Unknown Completed [facility] Influenza Virus Vaccine Quad ID 18-64 YRS Unknown Completed [facility] Pneumococcal Polysaccharide, PPSV23 (PNEUMOVAX) Unknown Completed [facility] TDAP Unknown Completed [facility] Zoster(Zostavax)( ingles) Unknown Completed [facility] Influenza Virus Vaccine Unknown Completed [facility] Pneumococcal 13 Conjugate, PCV13 (Prevnar 13) Unknown Completed [facility] SARS-COV-2 COVID-19 MODERNA 12+ YRS VACCINE Unknown Completed [facility] Influenza High Dose Quad Unknown Completed [facility] Influenza High Dose Unknown Completed [facility] SARS-COV-2 COVID-19 PFIZER MARLENA-SUCROSE VACCINE (HERNANDEZ TOP) Unknown Completed [facility] Influenza Virus Vaccine - Whole Unknown Completed [facility] Influenza Virus Vaccine,quad Im,preserve Free 65+ (FLUAD) Unknown Completed [facility] Influenza Virus Vaccine Quad ID 18-64 YRS Unknown Completed [facility] Pneumococcal Polysaccharide, PPSV23 (PNEUMOVAX) Unknown Completed [facility] TDAP Unknown Completed [facility] Zoster(Zostavax)(Sh ingles) Unknown Completed [facility] Influenza Virus Vaccine Unknown Completed [facility] Pneumococcal 13 Conjugate, PCV13 (Prevnar 13) Unknown Completed [facility] SARS-COV-2 COVID-19 MODERNA 12+ YRS VACCINE Unknown Completed [facility] Influenza High Dose Quad Unknown Completed [facility] Influenza High Dose Unknown Completed [facility] SARS-COV-2 COVID-19 PFIZER MARLENA-SUCROSE VACCINE (HERNANDEZ TOP) Unknown Completed [facility] Influenza Virus Vaccine - Whole Unknown Completed [facility] Influenza Virus Vaccine,quad Im,preserve Free 65+ (FLUAD) Unknown Completed [facility] Influenza Virus Vaccine Quad ID 18-64 YRS Unknown Completed [facility] Pneumococcal Polysaccharide, PPSV23 (PNEUMOVAX) Unknown Completed [facility] TDAP Unknown Completed [facility] Zoster(Zostavax)(Sh ingles) Unknown Completed [facility] Influenza Virus Vaccine Unknown Completed [facility] Pneumococcal 13 Conjugate, PCV13 (Prevnar 13) Unknown Completed [facility] SARS-COV-2 COVID-19 MODERNA 12+ YRS VACCINE Unknown Completed [facility] Influenza High Dose Quad Unknown Completed [facility] Influenza High Dose Unknown Completed [facility] SARS-COV-2 COVID-19 PFIZER MARLENA-SUCROSE VACCINE (HERNANDEZ TOP) Unknown Completed [facility] Influenza Virus Vaccine - Whole Unknown Completed [facility] Influenza Virus Vaccine,quad Im,preserve Free 65+ (FLUAD) Unknown Completed [facility] Influenza Virus Vaccine Quad ID 18-64 YRS Unknown Completed [facility] Pneumococcal Polysaccharide, PPSV23 (PNEUMOVAX) Unknown Completed [facility] TDAP Unknown Completed [facility] Zoster(Zostavax)(Sh ingles) Unknown Completed [facility] Influenza Virus Vaccine Unknown Completed [facility] Pneumococcal 13 Conjugate, PCV13 (Prevnar 13) Unknown Completed [facility] SARS-COV-2 COVID-19 MODERNA 12+ YRS VACCINE Unknown Completed [facility] Influenza High Dose Quad Unknown Completed [facility] Influenza High Dose Unknown Completed [facility] SARS-COV-2 COVID-19 PFIZER MARLENA-SUCROSE VACCINE (HERNANDEZ TOP) Unknown Completed [facility] Influenza Virus Vaccine - Whole Unknown Completed [facility] Influenza Virus Vaccine,quad Im,preserve Free 65+ (FLUAD) Unknown Completed [facility] Influenza Virus Vaccine Quad ID 18-64 YRS Unknown Completed [facility] Pneumococcal Polysaccharide, PPSV23 (PNEUMOVAX) Unknown Completed [facility] TDAP Unknown Completed [facility] Zoster(Zostavax)( ingles) Unknown Completed [facility] Influenza Virus Vaccine Unknown Completed [facility] Pneumococcal 13 Conjugate, PCV13 (Prevnar 13) Unknown Completed [facility] SARS-COV-2 COVID-19 MODERNA 12+ YRS VACCINE Unknown Completed [facility] Influenza High Dose Quad Unknown Completed [facility] Influenza High Dose Unknown Completed [facility] SARS-COV-2 COVID-19 PFIZER MARLENA-SUCROSE VACCINE (HERNANDEZ TOP) Unknown Completed [facility] Influenza Virus Vaccine - Whole Unknown Completed [facility] Influenza Virus Vaccine,quad Im,preserve Free 65+ (FLUAD) Unknown Completed [facility] Influenza Virus Vaccine Quad ID 18-64 YRS Unknown Completed [facility] Pneumococcal Polysaccharide, PPSV23 (PNEUMOVAX) Unknown Completed [facility] TDAP Unknown Completed [facility] Zoster(Zostavax)(Sh ingles) Unknown Completed [facility] Influenza Virus Vaccine Unknown Completed [facility] Pneumococcal 13 Conjugate, PCV13 (Prevnar 13) Unknown Completed [facility] SARS-COV-2 COVID-19 MODERNA 12+ YRS VACCINE Unknown Completed [facility] Influenza High Dose Quad Unknown Completed [facility] Influenza High Dose Unknown Completed [facility] SARS-COV-2 COVID-19 PFIZER MARLENA-SUCROSE VACCINE (HERNANDEZ TOP) Unknown Completed [facility] Influenza Virus Vaccine - Whole Unknown Completed [facility] Influenza Virus Vaccine,quad Im,preserve Free 65+ (FLUAD) Unknown Completed [facility] Influenza Virus Vaccine Quad ID 18-64 YRS Unknown Completed [facility] Pneumococcal Polysaccharide, PPSV23 (PNEUMOVAX) Unknown Completed [facility] TDAP Unknown Completed [facility] Zoster(Zostavax)(Sh ingles) Unknown Completed [facility] Influenza Virus Vaccine Unknown Completed [facility] Pneumococcal 13 Conjugate, PCV13 (Prevnar 13) Unknown Completed [facility] SARS-COV-2 COVID-19 MODERNA 12+ YRS VACCINE Unknown Completed [facility] Influenza High Dose Quad Unknown Completed [facility] Influenza High Dose Unknown Completed [facility] SARS-COV-2 COVID-19 PFIZER MARLENA-SUCROSE VACCINE (HERNANDEZ TOP) Unknown Completed [facility] Influenza Virus Vaccine - Whole Unknown Completed [facility] Influenza Virus Vaccine,quad Im,preserve Free 65+ (FLUAD) Unknown Completed [facility] Influenza Virus Vaccine Quad ID 18-64 YRS Unknown Completed [facility] Pneumococcal Polysaccharide, PPSV23 (PNEUMOVAX) Unknown Completed [facility] TDAP Unknown Completed [facility] Zoster(Zostavax)(Sh ingles) Unknown Completed [facility] Influenza Virus Vaccine Unknown Completed [facility] Pneumococcal 13 Conjugate, PCV13 (Prevnar 13) Unknown Completed [facility] SARS-COV-2 COVID-19 MODERNA 12+ YRS VACCINE Unknown Completed [facility] Influenza High Dose Quad Unknown Completed [facility] Influenza High Dose Unknown Completed [facility] SARS-COV-2 COVID-19 PFIZER MARLENA-SUCROSE VACCINE (HERNANDEZ TOP) Unknown Completed [facility] Influenza Virus Vaccine - Whole Unknown Completed [facility] Influenza Virus Vaccine,quad Im,preserve Free 65+ (FLUAD) Unknown Completed [facility] Influenza Virus Vaccine Quad ID 18-64 YRS Unknown Completed [facility] Pneumococcal Polysaccharide, PPSV23 (PNEUMOVAX) Unknown Completed [facility] TDAP Unknown Completed [facility] Zoster(Zostavax)(Sh ingles) Unknown Completed [facility] Influenza Virus Vaccine Unknown Completed [facility] Pneumococcal 13 Conjugate, PCV13 (Prevnar 13) Unknown Completed [facility] SARS-COV-2 COVID-19 MODERNA 12+ YRS VACCINE Unknown Completed [facility] Pneumococcal Polysaccharide, PPSV23 (PNEUMOVAX) Unknown Completed [facility] Influenza High Dose Quad Unknown Completed [facility] Influenza, High-Dose, Trivalent, PF (FLUZONE) Unknown Completed [facility] SARS-COV-2 COVID-19 PFIZER MARLENA-SUCROSE VACCINE (HERNANDEZ TOP) Unknown Completed [facility] Influenza Virus Vaccine - Whole Unknown Completed [facility] Influenza Virus Vaccine,quad Im,preserve Free 65+ (FLUAD) Unknown Completed [facility] Influenza Virus Vaccine Quad ID 18-64 YRS Unknown Completed [facility] Pneumococcal Polysaccharide, PPSV23 (PNEUMOVAX) Unknown Completed [facility] TDAP Unknown Completed [facility] Zoster(Zostavax)(Juan salgadoles) Unknown Completed [facility] Influenza Virus Vaccine Unknown Completed [facility] Pneumococcal 13 Conjugate, PCV13 (Prevnar 13) Unknown Completed [facility] SARS-COV-2 COVID-19 MODERNA 12+ YRS VACCINE Unknown Completed [facility] Pneumococcal Polysaccharide, PPSV23 (PNEUMOVAX) Unknown Completed [facility] Influenza High Dose Quad Unknown Completed [facility] Influenza, High-Dose, Trivalent, PF (FLUZONE) Unknown Completed [facility] SARS-COV-2 COVID-19 PFIZER MARLENA-SUCROSE VACCINE (HERNANDEZ TOP) Unknown Completed [facility] Influenza Virus Vaccine - Whole Unknown Completed [facility] Influenza Virus Vaccine,quad Im,preserve Free 65+ (FLUAD) Unknown Completed [facility] Vital Signs Vital Name Observation Time Observation Value Comments S maira Systolic blood pressure 2024-04-11 16:10:00 120 mm[Hg] [facility] Diastolic blood pressure 2024-04-11 16:10:00 65 mm[Hg] [facility] Heart rate 2024-04-11 16:10:00 93 /min [facility] Body height 2024-04-11 16:10:00 177.8 cm [facility] [place] Body weight 2024-04-11 16:10:00 65.318 kg [facility] BMI 2024-04-11 16:10:00 20.66 kg/m2 [facility] Oxygen saturation in Arterial blood by Pulse oximetry 2024-04-11 16:10:00 97 /min [facility] Systolic blood pressure 2024-04-09 16:25:00 125 mm[Hg] Wyatt o [facility] [place] Diastolic blood pressure 2024-04-09 16:25:00 78 mm[Hg] [facility] Heart rate 2024-04-09 16:25:00 87 /min [facility] Body height 2024-04-09 16:25:00 177.8 cm Univ [facility] Body weight 2024-04-09 16:25:00 66.044 kg [facility] BMI 2024-04-09 16:25:00 20.89 kg/m2 [facility] Oxygen saturation in Arterial blood by Pulse oximetry 2024-04-09 16:25:00 98 /min [facility] Systolic blood pressure 2024-03-29 15:31:00 135 mm[Hg] [facility] [place] Diastolic blood pressure 2024-03-29 15:31:00 76 mm[Hg] [facility] Heart rate 2024-03-29 15:31:00 90 /min [facility] Body height 2024-03-29 15:31:00 177.8 cm [facility] Body weight 2024-03-29 15:31:00 65.091 kg [facility] BMI 2024-03-29 15:31:00 20.59 kg/m2 [facility] Oxygen saturation in Arterial blood by Pulse oximetry 2024-03-29 15:31:00 97 /min [facility] Systolic blood pressure 2023-11-09 15:01:00 137 mm[Hg] [facility] Diastolic blood pressure 2023-11-09 15:01:00 79 mm[Hg] [facility] Heart rate 2023-11-09 15:01:00 76 /min [facility] Oxygen saturation in Arterial blood by Pulse oximetry 2023-11-09 15:01:00 96 /min [facility] Respiratory rate 2023-11-09 14:56:00 18 /min [facility] Body height 2023-11-09 14:56:00 177.8 cm Univ [facility] Body weight 2023-11-09 14:56:00 68.266 kg Univ [facility] BMI 2023-11-09 14:56:00 21.59 kg/m2 [facility] Systolic blood pressure 2023-06-23 18:08:00 118 mm[Hg] [facility] Diastolic blood pressure 2023-06-23 18:08:00 71 mm[Hg] [facility] Heart rate 2023-06-23 18:08:00 96 /min [facility] Body height 2023-06-23 18:08:00 177.8 cm [facility] Body weight 2023-06-23 18:08:00 72.485 kg [facility] BMI 2023-06-23 18:08:00 22.93 kg/m2 [facility] Oxygen saturation in Arterial blood by Pulse oximetry 2023-06-23 18:08:00 98 /min [facility] Systolic blood pressure 2023-06-16 14:43:00 103 mm[Hg] [facility] Diastolic blood pressure 2023-06-16 14:43:00 65 mm[Hg] [facility] Heart rate 2023-06-16 14:43:00 89 /min [facility] Body temperature 2023-06-16 14:43:00 36.89 Jannie [facility] Body height 2023-06-16 14:43:00 177.8 cm [facility] Body weight 2023-06-16 14:43:00 72.122 kg [facility] BMI 2023-06-16 14:43:00 22.81 kg/m2 [facility] Oxygen saturation in Arterial blood by Pulse oximetry 2023-06-16 14:43:00 96 /min [facility] Systolic blood pressure 2023-03-30 15:19:00 150 mm[Hg] [facility] Diastolic blood pressure 2023-03-30 15:19:00 81 mm[Hg] [facility] Body weight 2023-03-30 15:18:00 74.844 kg [facility] BMI 2023-03-30 15:18:00 23.68 kg/m2 [facility] Heart rate 2023-03-30 15:18:00 66 /min [facility] Body temperature 2023-03-30 15:18:00 36.78 Jannie [facility] Body height 2023-03-30 15:18:00 177.8 cm [facility] Systolic blood pressure 2023-03-01 15:58:00 133 mm[Hg] [facility] Diastolic blood pressure 2023-03-01 15:58:00 73 mm[Hg] [facility] Heart rate 2023-03-01 15:58:00 65 /min [facility] Body height 2023-03-01 15:58:00 177.8 cm [facility] Body weight 2023-03-01 15:58:00 74.571 kg [facility] BMI 2023-03-01 15:58:00 23.59 kg/m2 [facility] Oxygen saturation in Arterial blood by Pulse oximetry 2023-03-01 15:58:00 97 /min [facility] Systolic blood pressure 2023-02-12 17:22:00 151 mm[Hg] [facility] Diastolic blood pressure 2023-02-12 17:22:00 80 mm[Hg] [facility] Heart rate 2023-02-12 17:22:00 60 /min [facility] Body temperature 2023-02-12 17:22:00 36.44 Jannie [facility] Respiratory rate 2023-02-12 17:22:00 19 /min [facility] Oxygen saturation in Arterial blood by Pulse oximetry 2023-02-12 17:22:00 94 /min [facility] Body weight 2023-02-12 12:16:00 73.483 kg [facility] BMI 2023-02-12 12:16:00 23.24 kg/m2 [facility] Body height 2023-02-12 00:25:00 177.8 cm [facility] Systolic blood pressure 2023-02-11 18:39:00 188 mm[Hg] [facility] Diastolic blood pressure 2023-02-11 18:39:00 82 mm[Hg] [facility] Heart rate 2023-02-11 18:37:00 92 /min [facility] Body temperature 2023-02-11 18:37:00 36.78 Jannie [facility] Respiratory rate 2023-02-11 18:37:00 26 /min [facility] Body height 2023-02-11 18:37:00 177.8 cm [facility] Body weight 2023-02-11 18:37:00 77.565 kg [facility] BMI 2023-02-11 18:37:00 24.54 kg/m2 [facility] Oxygen saturation in Arterial blood by Pulse oximetry 2023-02-11 18:37:00 95 /min [facility] Systolic blood pressure 2022-12-29 15:33:00 134 mm[Hg] [facility] Diastolic blood pressure 2022-12-29 15:33:00 76 mm[Hg] [facility] Heart rate 2022-12-29 15:31:00 87 /min [facility] Body temperature 2022-12-29 15:31:00 36.89 Jannie [facility] Body height 2022-12-29 15:31:00 177.8 cm [facility] Body weight 2022-12-29 15:31:00 76.386 kg [facility] BMI 2022-12-29 15:31:00 24.16 kg/m2 [facility] Oxygen saturation in Arterial blood by Pulse oximetry 2022-12-29 15:31:00 96 /min [facility] Systolic blood pressure 2022-11-10 16:43:00 122 mm[Hg] [facility] Diastolic blood pressure 2022-11-10 16:43:00 79 mm[Hg] [facility] Heart rate 2022-11-10 16:43:00 82 /min [facility] Oxygen saturation in Arterial blood by Pulse oximetry 2022-11-10 16:43:00 95 /min [facility] Respiratory rate 2022-11-10 16:37:00 16 /min [facility] Body height 2022-11-10 16:37:00 177.8 cm [facility] Body weight 2022-11-10 16:37:00 75.07 kg [facility] BMI 2022-11-10 16:37:00 23.75 kg/m2 [facility] Systolic blood pressure 2022-09-01 13:11:00 137 mm[Hg] [facility] Diastolic blood pressure 2022-09-01 13:11:00 82 mm[Hg] [facility] Heart rate 2022-09-01 13:11:00 81 /min [facility] Body height 2022-09-01 13:11:00 177.8 cm [facility] Body weight 2022-09-01 13:11:00 74.072 kg [facility] BMI 2022-09-01 13:11:00 23.43 kg/m2 [facility] Oxygen saturation in Arterial blood by Pulse oximetry 2022-09-01 13:11:00 96 /min [facility] Systolic blood pressure 2022-08-26 13:07:00 110 mm[Hg] [facility] Diastolic blood pressure 2022-08-26 13:07:00 68 mm[Hg] [facility] Heart rate 2022-08-26 13:07:00 80 /min [facility] Body temperature 2022-08-26 13:07:00 36.78 Jannie [facility] Body height 2022-08-26 13:07:00 177.8 cm [facility] Body weight 2022-08-26 13:07:00 71.759 kg [facility] BMI 2022-08-26 13:07:00 22.70 kg/m2 [facility] Oxygen saturation in Arterial blood by Pulse oximetry 2022-08-26 13:07:00 98 /min [facility] Systolic blood pressure 2022-07-27 14:25:00 133 mm[Hg] [facility] Diastolic blood pressure 2022-07-27 14:25:00 78 mm[Hg] [facility] Heart rate 2022-07-27 14:25:00 78 /min [facility] Respiratory rate 2022-07-27 14:25:00 18 /min [facility] Body height 2022-07-27 14:25:00 177.8 cm [facility] Body weight 2022-07-27 14:25:00 72.485 kg [facility] BMI 2022-07-27 14:25:00 22.93 kg/m2 [facility] Oxygen saturation in Arterial blood by Pulse oximetry 2022-07-27 14:25:00 95 /min [facility] Systolic blood pressure 2022-07-14 19:26:00 109 mm[Hg] [facility] Diastolic blood pressure 2022-07-14 19:26:00 71 mm[Hg] [facility] Heart rate 2022-07-14 19:26:00 88 /min [facility] Body height 2022-07-14 19:26:00 177.8 cm [facility] Body weight 2022-07-14 19:26:00 71.26 kg [facility] BMI 2022-07-14 19:26:00 22.54 kg/m2 [facility] Oxygen saturation in Arterial blood by Pulse oximetry 2022-07-14 19:26:00 96 /min [facility] Systolic blood pressure 2022-07-05 19:19:00 117 mm[Hg] [facility] Diastolic blood pressure 2022-07-05 19:19:00 71 mm[Hg] [facility] Heart rate 2022-07-05 19:19:00 89 /min [facility] Respiratory rate 2022-07-05 19:19:00 18 /min [facility] Body height 2022-07-05 19:19:00 177.8 cm [facility] Body weight 2022-07-05 19:19:00 73.664 kg [facility] BMI 2022-07-05 19:19:00 23.30 kg/m2 [facility] Oxygen saturation in Arterial blood by Pulse oximetry 2022-07-05 19:19:00 95 /min [facility] Systolic blood pressure 2021-12-02 15:31:00 111 mm[Hg] [facility] Diastolic blood pressure 2021-12-02 15:31:00 66 mm[Hg] [facility] Heart rate 2021-12-02 15:31:00 76 /min [facility] Body height 2021-12-02 15:31:00 177.8 cm [facility] Body weight 2021-12-02 15:31:00 74.39 kg [facility] BMI 2021-12-02 15:31:00 23.53 kg/m2 [facility] Oxygen saturation in Arterial blood by Pulse oximetry 2021-12-02 15:31:00 95 /min [facility] Systolic blood pressure 2021-11-10 17:53:00 113 mm[Hg] [facility] Diastolic blood pressure 2021-11-10 17:53:00 61 mm[Hg] [facility] Heart rate 2021-11-10 17:53:00 85 /min [facility] Body temperature 2021-11-10 17:53:00 35.83 Jannie [facility] Respiratory rate 2021-11-10 17:53:00 18 /min [facility] Body height 2021-11-10 17:53:00 175.3 cm [facility] 2021-11-10 17:53:00 74.844 kg [facility] BMI 2021-11-10 17:53:00 24.37 kg/m2 [facility] Oxygen saturation in Arterial blood by Pulse oximetry 2021-11-10 17:53:00 97 /min [facility] Systolic blood pressure 2021-02-06 21:13:00 109 mm[Hg] [facility] Diastolic blood pressure 2021-02-06 21:13:00 69 mm[Hg] [facility] Heart rate 2021-02-06 21:13:00 86 /min [facility] 2021-02-06 21:13:00 177.8 cm [facility] Body weight 2021-02-06 21:13:00 75.751 kg [facility] BMI 2021-02-06 21:13:00 23.96 kg/m2 [facility] Oxygen saturation in Arterial blood by Pulse oximetry 2021-02-06 21:13:00 98 /min [facility] BP Systolic 2024-05-07 16:03:00 130 mm[Hg] Step hen [facility] [place] BP Diastolic 2024-05-07 16:03:00 77 mm[Hg] Malcolm phen [facility] [place] Weight Measured 2024-05-07 16:03:00 140.80 pounds Sameer [facility] [place] Height Measured 2024-05-07 16:03:00 69.00 inches Sameer [facility] [place] Body Temperature 2024-05-07 16:03:00 98.20 degrees Sameer [facility] [place] Heart Rate 2024-05-07 16:03:00 93.00 /min Lynne en [facility] [place] Respiratory Rate 2024-05-07 16:03:00 Sameer F [place] BP Systolic 2024-04-19 13:51:00 132 mm[Hg] Step hen [facility] [place] BP Diastolic 2024-04-19 13:51:00 77 mm[Hg] Malcolm phen [facility] [place] Weight Measured 2024-04-19 13:51:00 142.00 pounds Sameer [facility] [place] Height Measured 2024-04-19 13:51:00 69.00 inches Sameer [facility] [place] Body Temperature 2024-04-19 13:51:00 98.50 degrees Sameer [facility] [place] Heart Rate 2024-04-19 13:51:00 104.00 /min Step hen [facility] [place] Respiratory Rate 2024-04-19 13:51:00 Sameer [facility] [place] Respiratory Rate 2024-04-10 10:19:00 Sameer [facility] [place] BP Systolic 2024-04-10 10:19:00 112 mm[Hg] Step hen [facility] [place] BP Diastolic 2024-04-10 10:19:00 76 mm[Hg] Malcolm salguero [facility] [place] Weight Measured 2024-04-10 10:19:00 144.80 pounds Sameer [facility] [place] Height Measured 2024-04-10 10:19:00 69.69 inches Sameer [facility] [place] Body Temperature 2024-04-10 10:19:00 98.20 degrees Sameer [facility] [place] Heart Rate 2024-04-10 10:19:00 90.00 /min Lynne en [facility] [place] Respitory Rate 2014-06-15 13:00:00 [facility] Systolic (mm Hg) 2014-06-15 13:00:00 [facility] Diastolic (mm Hg) 2014-06-15 13:00:00 [facility] Heart Rate 2014-06-15 13:00:00 [facility] Temperature Oral (F) 2014-06-15 13:00:00 98 F [facility] Systolic (mm Hg) 2014-06-15 10:28:00 [facility] Diastolic (mm Hg) 2014-06-15 10:28:00 [facility] Heart Rate 2014-06-15 10:28:00 [facility] Respitory Rate 2014-06-15 10:28:00 [facility] Temperature Oral (F) 2014-06-15 10:28:00 98.7 F [facility] Systolic (mm Hg) 2014-06-15 05:15:00 [facility] Diastolic (mm Hg) 2014-06-15 05:15:00 [facility] Respitory Rate 2014-06-15 05:15:00 [facility] Heart Rate 2014-06-15 05:15:00 [facility] Temperature Oral (F) 2014-06-15 05:15:00 98.9 F [facility] Height 2014-06-14 20:30:00 177.8 cm [facility] BMI Calculated 2014-06-14 20:30:00 [facility] Weight 2014-06-14 20:30:00 [facility] Height 2014-06-10 17:25:00 177.8 cm [facility] BMI Calculated 2014-06-10 17:25:00 [place] Weight 2014-06-10 17:25:00 [facility] Procedures Procedure Date / Time Performed Performing Clinician Source CT ABDOMEN PELVIS WO CONTRAST 2024-04-09 19:19:05 Ilya Swain [facility] COMP. METABOLIC PANEL (60413) 2024-03-07 13:41:00 Rossi Haines [facility] LIPID PANEL (88789)(TOTAL CHOLESTEROL, TRIGLYCERIDES, HDL) 2024-03-07 13:41:00 Rossi Haines [facility] HB ECG ROUTINE & RHYTHM STRIP 2023-11-09 14:59:27 Rossi Haines [facility] LIPID PANEL ([id number])(TOTAL CHOLESTEROL, TRIGLYCERIDES, HDL) 2023-08-11 12:41:00 Rossi Haines [facility] POCT SARS-COV-2 ANTIGEN (BINAX NOW) 2023-06-16 15:48:00 Alanis Garrett [facility] POCT MOLECULAR FLU 2023-06-16 14:58:00 Alanis Garrett [facility] POCT MOLECULAR STREP 2023-06-16 14:51:00 Lenora Garrett [facility] EXTERNAL PROVIDER - ADC CARDIOLOGY 2023-05-02 05:01:00 Doctor Unassigned, [place] [facility] DME/SUPPLY JUSTIFICATION 2023-03-16 06:01:00 Doc tor Unassigned, [place] [facility] MAGNESIUM 2023-03-01 16:55:00 [facility] METABOLIC PAN[facility] (NA, K, CL, CO2, GLUCOSE, BUN, CREATININE, CA) 2023-03-01 16:55:00 Rossi Haines [facility] N-TERMINAL PRO-BNP 2023-03-01 16:55:00 Rossi Haines [facility] TROPONIN I 2023-02-12 13:54:[address] [facility] MAGNESIUM 2023-02-12 09:03:00 Nica [facility] TROPONIN I 2023-02-12 09:03:00 Rossi Haines [facility] BASIC METABOLIC PANEL (NA, K, CL, CO2, GLUCOSE, BUN, CREATININE, CA) 2023-02-12 09:03:00 Vernell [facility] N-TERMINAL PRO-BNP 2023-02-12 09:03:00 Vernell [facility] XR CHEST 1 VW 2023-02-11 20:06[facility]00 [facility] RIGHT - BY VASCULAR LAB 2023-02-11 19:58:58 Elias [facility] TROPONIN I 2023-02-11 19:32:00 Elias [facility] COMP. METABOLIC PANEL ([id number]) 2023-02-11 19:32:00 Elias [facility] CBC WITH DIFF 2023-02-11 19:32:00 [facility] N-TERMINAL PRO-BNP 2023-02-11 19:32:00 Franklin [facility] CONSENT/REFUSAL FOR DIAGNOSIS AND TREATMENT 2023-02-11 19:03:15 Doctor Unassigned, [place] [facility] CT ABDOMEN PELVIS WO CONTRAST 2022-12-29 19:58:01 Ayaka De Guzmna [facility] ASSIGNMENT OF BENEFITS 2022-11-10 16:21:45 Docto r Unassigned, [place] [facility] DME/SUPPLY JUSTIFICATION 2022-09-15 05:01:00 Doc tor Unassigned, [place] [facility] COMP. 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[facility]plasty using anterior approach [place] Encounters Start Date/Time End Date/Time Encounter Type Admission Type Attending [facility] Facility Care Department Encounter ID Source 2024-03-22 09:26:01 Outpatient SwainDusty [facility] [id number] [place] [facility] 2024-05-07 15:59:42 2024-05-07 15:59:42 Outpatient SFA SFA [id number] Sameer Garibay 2024-05-07 00:00:00 2024-05-07 00:00:00 Outpatient Visit SFA SFA [id number] Sameer Garibay 2024-04-19 13:50:23 2024-04-19 13:50:23 Outpatient SFA SFA [id number] Sameer [place] [place] 2024-04-19 00:00:00 2024-04-19 00:00:00 Outpatient Visit SFA SFA [id number] Sameer Garibay 2024-04-16 00:00:00 2024-04-16 14:22:49 Letter (Out) [facility] ([place]) [id number] [facility] 2024-04-12 00:00:00 2024-04-12 13:11:44 Letter (Out) [facility] ([place]) [id number] 4.2.7.2.686 [id number] 019 [id number] [facility] 2024-04-12 00:00:00 2024-04-12 12:54:32 Letter (Out) [facility] ([place]) 1.2840.114 350.1.13.10 4.2.7.2.686 [id number] 019 [id number] [facility] 2024-04-11 10:15:00 2024-04-11 10:58:54 Outpatient R ILYA SWAIN [facility] [id number] [facility] 2024-04-11 10:15:00 2024-04-11 10:58:54 Office Visit Ilya Swain [facility] 1.84.114 350.1.13.10 4.2.7.2.686 [id number] 044 [id number] [facility] 2024-04-10 10:12:06 2024-04-10 10:12:06 Outpatient SFA SFA [id number] Sameer Garibay 2024-04-10 00:00:00 2024-04-10 00:00:00 Outpatient Visit SFA SFA [id number] Sameer Garibay 2024-04-09 12:52:47 2024-04-09 23:59:00 Hospital Encounter Ilya Swain [facility] 1.2840.114 350.1.13.10 4.2.7.2.686 [id number] [facility] 2024-04-09 10:15:00 2024-04-09 10:42:49 Outpatient R ILYA [facility] [id number] [facility] 2024-04-09 10:15:00 2024-04-09 10:30:00 Office Visit Ilya Swain [facility] 1.284.114 350.1.13.10 4.2.7.2.686 [id number] 044 [id number] [facility] 2022-07-05 00:00:00 2024-04-07 02:41:24 Orders Only Sandy Gonzalez, Sandy [facility] 1.2840.114 350.1.13.10 4.2.7.2.686 [id number] 044 [id number] [facility] 2022-07-05 00:00:00 2024-04-07 02:41:24 Orders Only Sandy Gonzalez, Sandy [facility] 1.840.114 350.1.13.10 4.2.7.2.686 [id number] 044 [id number] [facility] 2024-03-29 10:15:00 2024-03-29 10:30:00 Car Dropper Visit Lab, Ilya Sargent Lab, Ang - Rocael [facility] 1.840.114 350.1.13.10 4.2.7.2.686 [id number] [facility] 2024-03-29 10:15:00 2024-03-29 10:15:00 Outpatient R ILYA [facility] [id number] [facility] 2024-03-29 09:30:00 2024-03-29 09:45:00 Office Visit Ilya Swain [facility] 1.840.114 350.1.13.10 4.2.7.2.686 [id number] 044 [id number] [facility] 2024-03-12 00:00:00 2024-03-15 10:18:28 Telephone Rossi Haines [facility] 1.840.114 350.1.13.10 4.2.7.2.686 [id number] 059 [id number] [facility] 2024-03-07 07:45:00 2024-03-07 09:42:30 Car Dropper Visit Lab, Rossi Son. Lab, Kristian Rocael [facility] 1.2.840.114 350.1.13.10 4.2.7.2.686 [id number] [facility] 2024-03-07 07:45:00 2024-03-07 07:45:00 Outpatient R ROSSI [facility]ES [facility] [id number] [facility] 2024-01-30 00:00:00 2024-01-30 07:59:36 Refpreethi Swain [facility] 1.2.840.114 350.1.13.10 4.2.7.2.686 [id number] 044 [id number] [facility] 2023-12-08 00:00:00 2023-12-09 09:01:37 Telephone Rossi Haines [facility] 1.2.840.114 350.1.13.10 4.2.7.2.686 [id number] 059 [id number] [facility] 2023-11-15 00:00:00 2023-11-15 13:11:16 Refpreethi Swain [facility] 1.2.840.114 350.1.13.10 4.2.7.2.686 [id number] 044 [id number] [facility] 2023-11-09 10:00:00 2023-11-09 10:25:41 Outpatient R ROSSI [facility] [id number] [facility] 2023-11-09 10:00:00 2023-11-09 10:25:41 Office Visit Rossi HainesHTano [facility] 1.2.840.114 350.1.13.10 4.2.7.2.686 [id number] 059 [id number] [facility] 2023-11-06 00:00:00 2023-11-07 08:51:15 Refill Rossi Haines [facility] 1.2.840.114 350.1.13.10 4.2.7.2.686 [id number] 059 [id number] [facility] 2023-10-24 00:00:00 2023-10-24 10:39:37 Telephone Rossi Haines [facility] 1.2.840.114 350.1.13.10 4.2.7.2.686 [id number] 059 [id number] [facility] 2023-10-19 00:00:00 2023-10-21 16:09:10 Patient Secure Msg Rossi Haines [facility] 1.2.840.114 350.1.13.10 4.2.7.2.686 [id number] 059 [id number] [facility] 2023-10-19 00:00:00 2023-10-19 16:03:51 Telephone Rossi Haines [facility] 1.2.840.114 350.1.13.10 4.2.7.2.686 [id number] 059 [id number] [facility] 2023-10-18 10:00:00 2023-10-18 10:15:00 Car Dropper Visit Lab, Rossi Son Lab, Kristian Cote [facility] 1.2.840.114 350.1.13.10 4.2.7.2.686 [id number] 353 [id number] [facility] 2023-10-18 10:00:00 2023-10-18 10:00:00 Outpatient R ROSSI [facility]INES [facility] [id number] [facility] 2023-08-18 00:00:00 2023-08-18 10:34:33 Telephone Rossi Haines [facility] 1.2.840.114 350.1.13.10 4.2.7.2.686 [id number] 059 [id number] [facility] 2023-08-11 08:00:00 2023-08-11 08:03:31 Outpatient R ROSSI [facility]ES [facility] [id number] [facility] 2023-08-11 08:00:00 2023-08-11 08:03:31 Car Dropper Visit Lab, Rossi Son [facility] 1.2.840.114 350.1.13.10 4.2.7.2.686 [id number] 353 [id number] [facility] 2023-08-08 00:00:00 2023-08-08 11:23:10 Refill Rossi Haines [facility] 1.2.840.114 350.1.13.10 4.2.7.2.686 [id number] 059 [id number] [facility] 2023-08-08 00:00:00 2023-08-08 11:20:20 Refill Rossi Haines [facility] 1.2.840.114 350.1.13.10 4.2.7.2.686 [id number] 059 [id number] [facility] 2023-07-15 00:00:00 2023-07-15 08:56:24 Refill Ilya Swain [facility] 1.2.840.114 350.1.13.10 4.2.7.2.686 [id number] 044 [id number] [facility] 2023-07-15 00:00:00 2023-07-15 07:34:48 Refill [facility] 1.840.114 350.1.13.10 4.2.7.2.686 [id number] 044 [id number] [facility] 2023-06-23 13:30:00 2023-06-23 13:45:00 Office Visit [facility]lya Swain [facility] 1.840.114 350.1.13.10 4.2.7.2.686 [id number] 044 [id number] [facility] 2023-06-23 13:30:00 2023-06-23 13:30:00 Out[address] R ILYA [facility]IN [facility] [id number] [facility] 2023-06-21 00:00:00 2023-06-21 00:00:00 Telephone Ilya Swain [facility] 1.0.114 350.1.13.10 4.2.7.2.686 [id number] 044 [id number] [facility] 2023-06-16 10:23:43 2023-06-16 23:59:00 Outpatient R MITALI GARRETTLIE [facility] [id number] [facility] 2023-06-16 10:23:43 2023-06-16 23:59:00 Hospital Encounter Tami Alanis Lyn [facility] 1..114 350.1.13.10 4.2.7.2.686 [id number] [id number] [facility] 2023-06-16 10:30:00 2023-06-16 10:45:00 Car Dropper Visit Lab, Ang - Rocael KrishnamurthyAlanis silverio [facility] 1.0.114 350.1.13.10 4.2.7.2.686 [id number] 353 [id number] [facility] 2023-06-16 09:30:00 2023-06-16 10:19:28 Office Visit Alanis Garrett [facility] 1.2840.114 350.1.13.10 4.2.7.2.686 [id number] 044 [id number] [facility] 2023-06-16 00:00:00 2023-06-16 00:00:00 Refill Alanis Garrett [facility] 1.2840.114 350.1.13.10 4.2.7.2.686 [id number] 044 [id number] [facility] 2023-05-24 00:00:00 2023-05-24 00:00:00 Refill Rossi Haines KTanoHTano [facility] 1.2840.114 350.1.13.10 4.2.7.2.686 [id number] 059 [id number] [facility] 2023-05-12 00:00:00 2023-05-12 00:00:00 Patient Secure MsRossi Encinas KTanoHTano [facility] 1.2.840.114 350.1.13.10 4.2.7.2.686 [id number] 059 [id number] [facility] 2023-05-10 00:00:00 2023-05-10 00:00:00 Refill Rossi Haines K.HTano [facility] 1.2840.114 350.1.13.10 4.2.7.2.686 [id number] 059 [id number] [facility] 2023-05-02 00:00:00 2023-05-02 00:00:00 Telephone Rossi HainesHTano [facility] 1.2840.114 350.1.13.10 4.2.7.2.686 [id number] 059 [id number] [facility] 2023-05-02 00:00:00 2023-05-02 00:00:00 Orders Only Doctor Unassigned, Blomkest [facility] 1.2840.114 350.1.13.10 4.2.7.2.686 [id number] [id number] [facility] 2023-04-20 08:05:03 2023-04-20 23:59:00 Outpatient R ROSSI HAINES [facility] [id number] [facility] 2023-04-20 08:05:03 2023-04-20 23:59:00 Hospital Encounter Rossi Haines [facility] 1.840.114 350.1.13.10 4.2.7.2.686 [id number] [facility] 2023-04-06 00:00:00 2023-04-06 00:00:00 Telephone Ilya Swain [facility] 1.114 350.1.13.10 4.2.7.2.686 [id number] 044 [id number] [facility] 2023-03-30 09:30:00 2023-03-30 10:12:06 Outpatient R ANA DE [facility]ON [facility] [id number] [facility] 2023-03-30 09:30:00 2023-03-30 10:12:06 Office Visit Ana De Leon [facility] 1.2.114 350.1.13.10 4.2.7.2.686 [id number] 044 [id number] [facility] 2023-03-16 00:00:00 2023-03-16 00:00:00 Orders Only Doctor Unassigned, Blomkest [facility] 1.2840.114 350.1.13.10 4.2.7.2.686 [id number] 009 [id number] [facility] 2023-03-11 00:00:00 2023-03-11 00:00:00 Telephone Ross[facility] 1.2.840.114 350.1.13.10 4.2.7.2.686 [id number] 059 [id number] [facility] 2023-03-04 14:40:38 2023-03-04 23:59:00 Outpatient R ROSSI HAINES [facility] [id number] [facility] 2023-03-04 14:40:38 2023-03-04 23:59:00 Hospital Encounter Rossi Haines [facility] 1.2.840.114 350.1.13.10 4.2.7.2.686 [id number] [id number] [facility] 2023-03-01 11:00:00 2023-03-01 11:15:34 Car Dropper Visit 2, Adc Lab Rossi Haines [facility] 1.2.840.114 350.1.13.10 4.2.7.2.686 [id number] [facility] 2023-03-01 10:00:00 2023-03-01 10:43:52 Outpatient R ROSSI HAINES [facility] [id number] [facility] 2023-03-01 10:00:00 2023-03-01 10:43:52 Office Visit Rossi Haines [facility] 1.2.840.114 350.1.13.10 4.2.7.2.686 [id number] 059 [id number] [facility] 2023-02-28 00:00:00 2023-02-28 00:00:00 Patient Secure Msg Doctor Unassigned, Blomkest [facility] 1..840.114 350.1.13.10 4.2.7.2.686 [id number] [facility] 2023-02-16 09:30:00 2023-02-16 09:30:00 Outpatient R ROSSI [facility]ES [facility] [id number] [facility] 2023-02-11 13:11:00 2023-02-12 14:38:00 Outpatient X [facility] [id number] [facility] 2023-02-11 13:11:00 2023-02-12 14:38:00 Emergency Griffin Sheila Matt [facility] 1.840.114 350.1.13.10 4.2.7.2.686 [id number] [id number] [facility] 2023-02-11 13:00:00 2023-02-11 13:20:00 Urgent Care Darius Garcia Unknown, Attending [facility] 1..840.114 350.1.13.10 4.2.7.2.686 [id number] [facility] 2023-02-11 13:00:00 2023-02-11 13:10:45 Outpatient R [address]ARIUS GARCIA [facility] [id number] [facility] 2023-02-09 00:00:00 2023-02-09 00:00:00 Refill Ilya Swain [facility] 1..840.114 350.1.13.10 4.2.7.2.686 [id number] 044 [id number] [facility] 2023-02-09 00:00:00 2023-02-09 00:00:00 Refill Rossi Haines [facility] 1.2.840.114 350.1.13.10 4.2.7.2.686 [id number] 059 [id number] [facility] 2023-02-01 00:00:00 2023-02-01 00:00:00 Refill Rossi HainesHTano [facility] 1.2.840.114 350.1.13.10 4.2.7.2.686 [id number] 059 [id number] [facility] 2023-01-04 00:00:00 2023-01-04 00:00:00 Telephone Rossi Haines [facility] 1.2.840.114 350.1.13.10 4.2.7.2.686 [id number] 059 [id number] [facility] 2022-12-31 00:00:00 2022-12-31 00:00:00 Telephone Rossi HainesHTano [facility] 1.2.840.114 350.1.13.10 4.2.7.2.686 [id number] 059 [id number] [facility] 2022-12-29 13:18:13 2022-12-29 23:59:00 Hospital Encounter Ayaka De Guzman [facility] 1.2.840.114 350.1.13.10 4.2.7.2.686 [id number] [facility] 2022-12-29 10:00:00 2022-12-29 10:00:55 Car Dropper Visit Lab, Kristian - Ayaka Reina [facility] 1.2.840.114 350.1.13.10 4.2.7.2.686 [id number] [facility] 2022-12-29 09:30:00 2022-12-29 09:54:03 Outpatient R AYAKA DE GUZMAN [facility] [id number] [facility] 2022-12-29 09:30:00 2022-12-29 09:54:03 Office Visit Ayaka De Guzman [facility] 1.2.840.114 350.1.13.10 4.2.7.2.686 [id number] 044 [id number] [facility] 2022-12-29 00:00:00 2022-12-29 00:00:00 Telephone Ayaka De Guzman [facility] 1..840.114 350.1.13.10 4.2.7.2.686 [id number] 044 [id number] [facility] 2022-11-11 00:00:00 2022-11-11 00:00:00 Refill Rossi Haines [facility] 1.84.114 350.1.13.10 4.2.7.2.686 [id number] 059 [id number] [facility] 2022-11-10 11:30:00 2022-11-10 16:32:20 Outpatient R ROSSI HAINES [facility] [id number] [facility] 2022-11-10 11:30:00 2022-11-10 12:00:00 Office Visit Rossi Haines [facility] 1..840.114 350.1.13.10 4.2.7.2.686 [id number] 059 [id number] [facility] 2022-11-10 00:00:00 2022-11-10 00:00:00 Orders Only Doctor Unassigned, Blomkest [facility] 1.284.114 350.1.13.10 4.2.7.2.686 [id number] [facility] 2022-10-24 00:00:00 2022-10-24 00:00:00 [facility]ill [facility] 1.2840.114 350.1.13.10 4.2.7.2.686 [id number] 044 [id number] [facility] 2022-10-24 00:00:00 2022-10-24 00:00:00 Refill Rossi Haines [facility] 1.2840.114 350.1.13.10 4.2.7.2.686 [id number] 059 [id number] [facility] 2022-09-15 00:00:00 2022-09-15 00:00:00 Telephone [facility] 1.2840.114 350.1.13.10 4.2.7.2.686 [id number] 044 [id number] [facility] 2022-09-15 00:00:00 2022-09-15 00:00:00 Orders Only Doctor Unassigned, Blomkest [facility] 1.2840.114 350.1.13.10 4.2.7.2.686 [id number] 009 [id number] [facility] 2022-09-08 00:00:00 2022-09-08 00:00:00 Pre Visit Outreach Simon Grier [facility] 1.2840.114 350.1.13.10 4.2.7.2.686 [id number] 082 [id number] [facility] 2022-09-01 08:00:00 2022-09-01 08:30:00 [facility] 1.2840.114 350.1.13.10 4.2.7.2.686 [id number] 044 [id number] [facility] 2022-09-01 08:00:00 2022-09-01 08:00:00 Outpatient R WILIAM [facility] [id number] [facility] 2022-08-31 00:00:00 2022-08-31 00:00:00 Refill Rossi Haines.HTano [facility] 1..840.114 350.1.13.10 4.2.7.2.686 [id number] 059 [id number] [facility] 2022-08-31 00:00:00 2022-08-31 00:00:00 Refill Rossi Haines.H. [facility] 1.2.840.114 350.1.13.10 4.2.7.2.686 [id number] 059 [id number] [facility] 2022-08-26 08:45:00 2022-08-26 09:55:40 Car Dropper Visit Lab, Kristian Ellis [facility] 1..840.114 350.1.13.10 4.2.7.2.686 [id number] 353 [id number] [facility] 2022-08-26 08:00:00 2022-08-26 08:41:[address] [facility] [id number] [facility] 2022-08-26 08:00:00 2022-08-26 08:41:13 Office Visit [facility] 1.2.840.114 350.1.13.10 4.2.7.2.686 [id number] 044 [id number] [facility] 2022-08-20 00:00:00 2022-08-20 00:00:[address] [facility] [id number] [facility] 2022-07-27 09:45:00 2022-07-27 10:00:00 Office Visit Ilya Swain [facility] 1..840.114 350.1.13.10 4.2.7.2.686 [id number] 044 [id number] [facility] 2022-07-27 09:45:00 2022-07-27 09:45:[address] [facility] [id number] [facility] 2022-07-14 14:45:00 2022-07-14 15:02:[address] [facility] [id number] [facility] 2022-07-14 14:45:00 2022-07-14 15:00:00 Office Visit Wiliam Ilya [facility] 1.840.114 350.1.13.10 4.2.7.2.686 [id number] 044 [id number] [facility] 2022-07-14 00:00:00 2022-07-14 00:00:00 Refill [facility] 1.840.114 350.1.13.10 4.2.7.2.686 [id number] 044 [id number] [facility] 2022-07-08 00:00:00 2022-07-08 00:00:00 Telephone Rossi Haines [facility] 1.84.114 350.1.13.10 4.2.7.2.686 [id number] 059 [id number] [facility] 2022-07-07 09:30:00 2022-07-07 09:30:00 Car Dropper Visit Lab, Kristian Cote Unknown, Attending [facility] 1.284.114 350.1.13.10 4.2.7.2.686 [id number] [facility] 2022-07-07 09:30:00 2022-07-07 09:28:48 Outpatient R ILYA SWAIN [facility] [id number] [facility] 2022-07-07 00:00:00 2022-07-07 00:00:00 Telephone Ayaka De Guzman [facility] 1.2.840.114 350.1.13.10 4.2.7.2.686 [id number] 044 [id number] [facility] 2022-07-05 14:30:00 2022-07-05 14:48:48 Outpatient R AYAKA DE GUZMAN [facility] [id number] [facility] 2022-07-05 14:30:00 2022-07-05 14:48:48 Office Visit Ayaka De Guzman [facility] 1.2.840.114 350.1.13.10 4.2.7.2.686 [id number] 044 [id number] [facility] 2022-06-10 00:00:00 2022-06-10 00:00:00 Rossi Panchal [facility] 1..840.114 350.1.13.10 4.2.7.2.686 [id number] 059 [id number] [facility] 2022-05-17 00:00:00 2022-05-17 00:00:00 Abstract Ilya Swain [facility] 1.2.840.114 350.1.13.10 4.2.7.2.686 [id number] [facility] 2022-05-05 00:00:00 2022-05-05 00:00:00 Telephone Ayaka De Guzman [facility] 1.2.840.114 350.1.13.10 4.2.7.2.686 [id number] [id number] [facility] 2022-03-04 00:00:00 2022-03-04 00:00:00 Refill Rossi HainesHTano [facility] 1.2.840.114 350.1.13.10 4.2.7.2.686 [id number] [facility] 2022-01-19 08:00:00 2022-01-19 08:00:[address] [facility] [id number] [facility] 2021-12-24 00:00:00 2021-12-24 00:00:00 Refill Rossi HainesHTano [facility] 1.2.840.114 350.1.13.10 4.2.7.2.686 [id number] 059 [id number] [facility] 2021-12-21 13:00:00 2021-12-21 13:00:[address] [facility] [id number] [facility] 2021-12-08 00:00:00 2021-12-08 00:00:00 Telephone Rossi Haines [facility] 1.2.840.114 350.1.13.10 4.2.7.2.686 [id number] [facility] 2021-12-04 00:00:00 2021-12-04 00:00:00 Telephone Ayaka De Guzman [facility] 1.2.840.114 350.1.13.10 4.2.7.2.686 [id number] [id number] [facility] 2021-12-03 07:45:00 2021-12-03 08:41:[address] [facility] [id number] [facility] 2021-12-03 07:45:00 2021-12-03 08:00:00 Car Dropper Visit Lab, Kristian Swain [facility] 1..840.114 350.1.13.10 4.2.7.2.686 [id number] [facility] 2021-12-02 10:30:00 2021-12-02 10:49:24 Outpatient R AYAKA DE GUZMAN [facility] [id number] [facility] 2021-12-02 10:30:00 2021-12-02 10:49:24 Office Visit Ayaka De Guzman [facility] 1..840.114 350.1.13.10 4.2.7.2.686 [id number] [id number] [facility] 2021-12-02 00:00:00 2021-12-02 00:00:00 Telephone [facility] 1..840.114 350.1.13.10 4.2.7.2.686 [id number] [id number] [facility] 2021-11-10 13:00:00 2021-11-10 13:09:56 Outpatient R ROSSI HAINES [facility] [id number] [facility] 2021-11-10 13:00:00 2021-11-10 13:09:56 Office Visit Rossi Haines [facility] 1..840.114 350.1.13.10 4.2.7.2.686 [id number] [id number] [facility] 2021-11-10 00:00:00 2021-11-10 00:00:00 Orders Only Doctor Unassigned, [place] [facility] 1.2840.114 350.1.13.10 4.2.7.2.686 [id number] [facility] 2021-11-06 10:00:00 2021-11-06 10:00:00 Outpatient R ROSSI HAINES [facility] [id number] [facility] 2021-06-07 00:00:00 2021-06-07 00:00:00 Refill Rossi Haines [facility] 1.2.840.114 350.1.13.10 4.2.7.2.686 [id number] [id number] [facility] 2021-02-06 15:00:00 2021-02-06 15:50:38 Office Visit Lizabeth Ellisthia [facility] 1..840.114 350.1.13.10 4.2.7.2.686 [id number] [id number] [facility] 2021-02-06 15:00:00 2021-02-06 15:50:38 Outpatient R [facility] [id number] [facility] 2021-02-06 15:00:00 2021-02-06 15:00:00 Outpatient R RHONDA PAULA [facility] [id number] [facility] 2021-01-29 12:30:00 2021-01-29 13:35:06 Outpatient R ALANIS GARRETT [facility] [id number] [facility] 2021-01-29 12:17:55 2021-01-29 12:47:55 Office Visit Alanis Garrett [facility] 1.2.840.114 350.1.13.10 4.2.7.2.686 [id number] [id number] [facility] 2021-01-29 12:30:00 2021-01-29 12:30:00 Outpatient [address]IS [facility] [facility] [id number] [facility] 2020-12-01 07:59:57 2020-12-01 23:59:00 Hospital Encounter Rossi Haines [facility] 1.2.840.114 350.1.13.10 4.2.7.2.686 [id number] [facility] 2020-12-01 08:00:00 2020-12-01 08:00:00 Outpatient [address]SI HAINES [facility] [id number] [facility] 2020-11-06 09:52:16 2020-11-06 10:32:26 Office Visit Rossi Haines [facility] 1.2.840.114 350.1.13.10 4.2.7.2.686 [id number] [id number] [facility] 2020-11-06 10:00:00 2020-11-06 10:00:00 Outpatient [address]SI HAINES [facility] [id number] [facility] 2020-11-06 00:00:00 2020-11-06 00:00:00 Orders Only Doctor Unassigned, [place] [facility] 1.2.840.114 350.1.13.10 4.2.7.2.686 [id number] [facility] 2020-11-06 00:00:00 2020-11-06 00:00:00 Orders Only Doctor Unassigned, [place] [facility] 1.2.840.114 350.1.13.10 4.2.7.2.686 [id number] [facility] 2020-11-04 11:30:00 2020-11-04 11:30:00 Outpatient [address] HA[address] [facility] [id number] [facility] 2020-10-20 08:00:00 2020-10-20 08:00:00 Outpatient R [address]SI HA[address] [facility] [id number] [facility] 2020-09-23 00:00:00 2020-09-23 00:00:00 Refill Rossi Haines [facility] 1.2.840.114 350.1.13.10 4.2.7.2.686 [id number] [id number] [facility] 2020-08-06 00:00:00 2020-08-06 00:00:00 Refill Alanis Garrett [facility] Office Building One 1.2.840.114 350.1.13.10 4.2.7.2.686 [id number] [facility] 2020-08-06 00:00:00 2020-08-06 00:00:00 Telephone Rossi Haines [facility] 1.2.840.114 350.1.13.10 4.2.7.2.686 [id number] [id number] [facility] 2020-08-01 00:00:00 2020-08-01 00:00:00 Telephone Ilya Swain [facility] 1.2.840.114 350.1.13.10 4.2.7.2.686 [id number] [facility] 2020-07-30 08:45:14 2020-07-30 09:22:08 Urgent Care Provider, [facility] Alanis Garrett [facility] Office [facility] One 1.2.840.114 350.1.13.10 4.2.7.2.686 [id number] [facility] 2020-07-30 09:00:00 2020-07-30 09:00:00 Outpatient [address] ALANIS GARRETT [facility] [id number] [facility] 2020-07-18 09:45:00 2020-07-18 09:45:00 Outpatient [address]SI HA[address] [facility] [id number] [facility] 2020-07-18 08:10:23 2020-07-18 08:25:23 Car Dropper Visit 2, Adc Lab Rossi Haines [facility] 1.2.840.114 350.1.13.10 4.2.7.2.686 [id number] [facility] 2020-04-26 10:55:00 2020-04-26 10:55:[address] [facility] [id number] [facility] 2020-03-29 10:50:00 2020-03-29 10:50:[address] [facility] [id number] [facility] 2020-03-18 00:00:00 2020-03-18 00:00:00 Refill Rossi Haines [facility] 1..840.114 350.1.13.10 4.2.7.2.686 [id number] [facility] 2020-03-06 00:00:00 2020-03-06 00:00:00 Telephone Rossi Haines [facility] 1..840.114 350.1.13.10 4.2.7.2.686 [id number] [facility] 2020-03-04 10:15:00 2020-03-04 10:15:00 Outpatient [address] WILIAM ILYA [facility] [id number] [facility] 2020-03-04 09:51:52 2020-03-04 10:06:52 Car Dropper Visit Pob, Adc Lab Main Wiliam Ilya [facility] 1.2.840.114 350.1.13.10 4.2.7.2.686 [id number] [facility] 2020-02-14 00:00:00 2020-02-14 00:00:00 Refill Rossi Haines [facility] 1.2.840.114 350.1.13.10 4.2.7.2.686 [id number] [facility] 2020-02-09 00:00:00 2020-02-09 00:00:00 Refill HainesJuliokarolina AliciaTano [facility] 1.2.840.114 350.1.13.10 4.2.7.2.686 [id number] [facility] 2019-12-26 00:00:00 2019-12-26 00:00:00 Refill HainesJuliokarolina Tamar [facility] 1.2.840.114 350.1.13.10 4.2.7.2.686 [id number] [facility] 2019-11-02 13:09:44 2019-11-02 13:44:20 Office Visit Rossi Haines KenjiTanoDafneTano [facility] 1.2.840.114 350.1.13.10 4.2.7.2.686 [id number] [id number] [facility] 2019-11-02 13:30:00 2019-11-02 13:30:00 Outpatient R [address]SI HAINES [facility] [id number] [facility] 2019-10-08 09:00:00 2019-10-08 09:00:[address] [facility] [id number] [facility] 2018-10-26 12:40:57 2019-10-04 12:50:42 Office Visit Rossi Haines KenjiTanoDafneTano [facility] 1.2.840.114 350.1.13.10 4.2.7.2.686 [id number] [facility] 2018-10-26 13:00:00 2018-10-26 16:16:35 Outpatient R [address]SI HA[address] [facility] [id number] [facility] 2018-10-26 12:40:57 2018-10-26 13:10:57 Office Visit Rossi Haines [facility] 1.2.840.114 350.1.13.10 4.2.7.2.686 [id number] 2018-10-19 09:35:02 2018-10-19 10:31:17 Office Visit Ilya Swain [facility] Office Building One 1.2.840.114 350.1.13.10 4.2.7.2.686 [id number] [facility] 2018-10-19 00:00:00 2018-10-19 00:00:00 Orders Only Doctor Unassigned, [place] [facility] 1.2.840.114 350.1.13.10 4.2.7.2.686 [id number] [facility] 2018-10-18 00:00:00 2018-10-18 00:00:00 Telephone Ilya Swain [facility] Office Building [facility] 1.2.840.114 350.1.13.10 4.2.7.2.686 [id number] [facility] 2014-06-14 11:45:00 2014-06-15 16:15:00 Inpatient nullFlavo r [facility] [id number] [facility] Results Test Description Test Time Test Comments Results Result Comments Source CT Abdomen pelvis wo contrast 2024-03 21:54:5 8 EXAM: CT ABDOMEN PELVIS WO CONTRAST HISTORY: 73 years-old Male; Provided indication: Peritonitis or perforationsuspected RLQ abdominal pain (Age >= 14y) . TECHNIQUE: Contiguous axial imaging from the level of the lung basesthrough the proximal thighs was performed without the intravenousadministration of contrast. Coronal and sagittal reconstructions wereobtained. COMPARISON: CTAP 12/29/2022 FINDINGS: Limited examination in the absence of intravenous contrast. LOWER THORAX: Small right posterior Bochdalek hernia. Solid 2.6 cmsubpleural nodule in the right lower lobe. Diffuse emphysematous changes. LIVER: The liver is diffusely enlarged measuring up to 19 cm in length withnumerous ill-defined hypodensities throughout both lobes. Awell-circumscribed 1.8 cm cyst is present along the left hepatic margin. GALLBLADDER AND BILIARY TREE: Prior cholecystectomy. SPLEEN: The spleen is normal in size. PANCREAS: No ductal dilation or masses are visualized. ADRENAL GLANDS: No adrenal masses are seen. KIDNEYS: No hydronephrosis, stones, or contour deforming solid masses arevisualized. PELVIS/BLADDER: The bladder is partially collapsed, which limitsevaluation. GI TRACT: No dilation or bowel wall thickening is seen. The appendixappears unremarkable. Pancolonic diverticulosis with no evidence ofdiverticulitis. PERITONEUM AND RETROPERITONEUM: No intra-abdominal free air or fluidcollection is visualized. Mild prostatomegaly with central calcifications. LYMPH NODES: No lymphadenopathy. VESSELS: Mild atherosclerosis is seen. BONES AND SOFT TISSUES: No suspicious lytic or sclerotic bony lesions arepresent. [facility] ([id number])2024-03-07 20:34:46* Test Item Value Reference Range Interpretation Comme nts NA (test code = 6732043410) 134 mmol/L 135-145 L K (test code = 2345377075) 4.4 mmol/L 3.5-5.0 CL (test code = 1258179235) 102 mmol/L 98-108 CO2 TOTAL (test code = 8939161504) 27 mmol/L 23-31 AGAP (test code = 5933732074) 5 2-16 BUN (test code = 9440370524) 13 mg/dL 7-23 GLUCOSE (test code = 2335184137) 97 mg/dL 70-110 CREATININE (test code = 2160-0) 0.71 mg/dL 0.60-1.25 TOTAL BILI (test code = 6543095845) 0.2 mg/dL 0.1-1.1 CALCIUM (test code = 6323867036) 9.4 mg/dL 8.6-10.6 T PROTEIN (test code = 6291566676) 6.5 g/dL 6.3-8.2 ALBUMIN (test code = 8610429924) 4.2 g/dL 3.5-5.0 ALK PHOS (test code = 5239999723) 87 U/L 34-122 ALTv (test code = 1742-6) 48 U/L 5-50 AST(SGOT) (test code = 4987989969) 42 U/L 13-40 H eGFR (test code = 57514-5) 96.3 mL/min/1.73m2 CKD-EPI eGFR (2020). Assuming creatinine has been stable day-to-day for at least three months, the eGFR indicates Category G1 (>= 90 mL/min/1.73 m2) Lab Interpretation (test code = 09085-6) [facility]normal [facility] (26139)(TOTAL CHOLESTEROL, TRIGLYCERIDES, HDL)2023-08-11 19:33:59* Test Item Value Reference Range Interpretation Comme nts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 no complications. The following specimens were processed according to instructions and sent to [facility] laboratories per lab order on 03/07/2024 : LT BLUE SST 1 RED LAV PPT DK GREEN (LiHep) DK GREEN (SodH) HERNANDEZ DK BLUE (K2) DK BLUE (S) ACD Blood Culture NIPT/NTD [place] [id number] 07:45:00 CMP within acceptable stable limits. Lipid panel within acceptable limits. Continue the current cardiac medications without any further changes. [place] [id number] 07:54:17 Disp Refills Start End ÁNGEL MONTELUKAST 10 mg tablet 90 tablet 0 11/15/2023 -- No Sig: TAKE 1 TABLET BY MOUTH IN THE MORNING Sent to pharmacy as: montelukast 10 mg tablet (SINGULAIR) Class: eRX Route: Oral Order: [id number] Date/Time Signed: 11/15/2023 13:11 E-Prescribing Status: Receipt confirmed by pharmacy (11/15/2023 1:11 PM CDT) SILVIA: 06/16/23 Assessment/Plan Acute URI (primary encounter diagnosis) Acute cough Plan: POCT SARS-COV-2 ANTIGEN (BINAX NOW), XR CHEST 2 VW, POCT MOLECULAR STREP, POCT Molecular Flu, methylPREDNISolone (MEDROL, FLORENCIO,) 4 mg tablets, azelastine 137 mcg (0.1 %) nasal spray, montelukast 10 mg tablet Afebrile, well appearing, non-toxic, NAD. HR < 100. Soft wheezing at lung bases. No dyspnea. Speaking in complete sentences without difficulty. O2 sat 96%. COVID-19 test negative. Flu and strep negative. Likely 2/2 viral URI. Start medrol florencio. Take full course as directed with food. Avoid nsaids. [facility]ah[facility]-54 09:00:20 Patient needing refill of lisinopril 20 mg daily Labs 09/2723, reviewed by Dr. Haines [facility] 11/09/23 [facility]2024-10-17 11:34:31 Queenie Nieves is a 73 year old male. Pt wants to know if provider is going to refill or increase and refill prescription. Please advise. T Adarsh WalkerSumma HealthWrqgmw1070-81-89 13:10:20 Notes: Last Refilled: montelukast 10 mg tablet 90 tablet 0 07/15/2023 -- No Sig: TAKE 1 TABLET BY MOUTH IN THE MORNING Sent to pharmacy as: montelukast 10 mg tablet (SINGULAIR) Class: eRX Notes to Pharmacy: Patient requests 90 days supply Route: Oral Order: [id number] Date/Time Signed: 07/15/2023 08:56 E-Prescribing Status: Receipt confirmed by pharmacy (07/15/2023 8:56 AM CDT) Recent Visits Date Type Provider Dept 06/23/23 Office Visit Ilya Swain MD [facility] 06/16/23 Office Visit Alanis Garrett PA [facility] 03/30/23 Office Visit Ana De Leon MD [facility] 12/29/22 Office Visit Ayaka De Guzman FNP [facility] 09/01/22 Office Visit Ilya Swain MD [facility] 08/26/22 Office Visit Paula Ellis FNP [facility] 07/27/22 Office Visit Ilya Swain MD [facility] 07/14/22 Office Visit Ilya Swain MD [facility] 07/05/22 Office Visit Ayaka De Guzman, AIRPORT SHUTTLE DRIVER [facility] Showing recent visits within past 540 days with a meds authorizing provider and meeting all other requirements Future Appointments No visits were found meeting these conditions. Showing future appointments within next 150 days with a meds authorizing provider and meeting all other requirements Felicitas Luna [facility]AA[facility] CenterZcztao3508-88-71 10:39:14 Duplicate message please see other encounter. Thank you Cortney Peter [facility] SystemsNvgtkz4637-99-40 10:38:08 Images from the original note were not included. Patient was notified of the results below, he verbally understood and agreed to the plan. Thank you Rossi Haines MD routed conversation to Darcie Antonio, HARPER; Cardiology Nurse13 hours ago (7:44 PM) Rossi Haines MD13 hours ago (7:44 PM) Events noted that the patient is still taking atorvastatin 20 mg daily. Patient has currently been taking lisinopril 20 mg daily instead of 10 mg daily. Continue with increased dose of lisinopril 20 mg daily without any issues. Please ask him to continue with increased dose of atorvastatin to 40 mg daily. Please ask him to bring the blood pressure log/heart rate log for the upcoming office visit next week. Prefer to take the blood pressure at least 2 to 3 hours after taking the morning dose of blood pressure medications. T Cortney Peter [facility] SystemsTzrwor0889-97-64 10:27:15 Qeuenie Nieves is a 73 year old male Pt returning nurses call about his medication. Please see previous encounters. Please advise. Hetal FaithPending sale to [facility] HealthEmggbz3976-78-78 08:57:50 Images from the original note were not included. Attempted to contact patient with results/recommendations. [facility] for patient to return call to [phone]. Rossi Haines MD routed conversation to Darcie Antonio RN; Cardiology Nurse13 hours ago (7:44 PM) Rossi Haines MD13 hours ago (7:44 PM) Events noted that the patient is still taking atorvastatin 20 mg daily. Patient has currently been taking lisinopril 20 mg daily instead of 10 mg daily. Continue with increased dose of lisinopril 20 mg daily without any issues. Please ask him to continue with increased dose of atorvastatin to 40 mg daily. Please ask him to bring the blood pressure log/heart rate log for the upcoming office visit next week. Prefer to take the blood pressure at least 2 to 3 hours after taking the morning dose of blood pressure medications. Cortney Peter MAAden[facility]ayette Medical CenterZrlgiz3736-37-13 19:41:57 Events noted that the patient is still taking atorvastatin 20 mg daily. Patient has currently been taking lisinopril 20 mg daily instead of 10 mg daily. Continue with increased dose of lisinopril 20 mg daily without any issues. Please ask him to continue with increased dose of atorvastatin to 40 mg daily. Please ask him to bring the blood pressure log/heart rate log for the upcoming office visit next week. Prefer to take the blood pressure at least 2 to 3 hours after taking the morning dose of blood pressure medications. [place] [id number] 16:04:50 Spoke with pt and verified that he is taking lisinopril 10mg and that he increased his lipitor to 40mg. [facility] Jami Hernandez [place] [id number] 15:58:12 Images from the original note were not included. Spoke with patient. Results discussed. He states that he has been taking 20 mg of atorvastatin. States that he thought SILVIA Dr. Haines advised him to double up on the lisinopril so he had been taking 20 mg. He verbalized understanding now that he will take 40 mg of atorvastatin (2 tablets) and 1 tablet of 10 mg lisinopril. Rossi Haines MD P Cardiology Nurse CMP within acceptable limits LDL at 77 noted. Goal LDL needs to be less than 70. Please verify patient has been taking Lipitor 40 mg daily. If so, recommend adding Zetia 10 mg daily. Repeat lipid panel in 2 to 3 months time. [facility]2024-08-28 15:39:01 Images from the original note were not included. Attempted to contact patient to discuss lab results, no answer I left a voice message to call back. Rossi Haines MD P Cardiology Nurse CMP within acceptable limits LDL at 77 noted. Goal LDL needs to be less than 70. Please verify patient has been taking Lipitor 40 mg daily. If so, recommend adding Zetia 10 mg daily. Repeat lipid panel in 2 to 3 months time. Note Lula Hodge MAA[place] [id number] 11:25:49 Attempted to contact patient with results/recommendations. LVM for patient to return call to [phone]. T Darcie Antonio RNAmy [place] [id number] 09:17:05 Images from the original note were not included. Attempted to contact patient to discuss lab results, no answer I left a voice message to call back. Rossi Haines MD P Cardiology Nurse CMP within acceptable limits LDL at 77 noted. Goal LDL needs to be less than 70. Please verify patient has been taking Lipitor 40 mg daily. If so, recommend adding Zetia 10 mg daily. Repeat lipid panel in 2 to 3 months time. [place] 130604-08-27 10:00:00 Images from the original note were not included. Venipuncture collection performed by clean technique on the left anticubitus. Total of 1 attempts were made. Slight pressure and a bandage/dressing were applied to the site(s). The patient experienced no complications. The following specimens were processed according to instructions and sent to [facility] laboratories per lab order on 10/18/2023 : LT BLUE SST 1 RED LAV PPT DK GREEN (LiHep) DK GREEN (SodH) HERNANDEZ DK BLUE (K2) DK BLUE (S) ACD Blood Culture NIPT/NTD [place] [id number] 10:34:04 Images from the original note were not included. Notified patient per Dr Haines: Haines, Sendil K.H., MD P Cardiology Nurse Lipid panel shows LDL still not optimally controlled at 73. Recommended goal LDL need to be less than 70. Please verify patient's been taking Lipitor 20 mg daily. If so please ask him to increase it to 40 mg daily. Repeat lipid panel in 2 to 3 months time. Orders placed. Patient verbal understanding. T Lula Hodge MAAdena Fayette Medical CenterZmooee2107-32-30 08:00:00 Images from the original note were not included. Venipuncture collection performed by clean technique on the left anticubitus. Total of 1 attempts were made. Slight pressure and a bandage/dressing were applied to the site(s). The patient experienced no complications. The following specimens were processed according to instructions and sent to [facility] laboratories per lab order on 08/11/2023 : LT BLUE SST 1 RED LAV PPT DK GREEN (LiHep) DK GREEN (SodH) HERNANDEZ DK BLUE (K2) DK BLUE (S) ACD Blood Culture NIPT/NTD [facility]2024-06-20 08:00:00 Lipid panel shows LDL still not optimally controlled at 73. Recommended goal LDL need to be less than 70. Please verify patient's been taking Lipitor 20 mg daily. If so please ask him to increase it to 40 mg daily. Repeat lipid panel in 2 to 3 months time. Orders placed. [place] [id number] 08:00:00 Addended by: ROSSI HAINES on: 08/16/2023 08:31 PM Modules accepted: Orders [place] [id number] 11:20:33 Refill request for lisinopril 10 mg Labs 03/01/2023, reviewed by Dr. Haines Refill sent to [id number] - [place], [place] - [address] [place] [address] AT [facility] Darcie Antonio [facility] HospitalNkjtlg0833-99-02 11:15:56 Images from the original note were not included. Refill requested for Requested Prescriptions Pending Prescriptions Disp Refills ATORVASTATIN 10 mg tablet [Pharmacy Med Name: ATORVASTATIN 10MG TABLETS] 30 tablet 5 Sig: TAKE 1 TABLET BY MOUTH IN THE MORNING Cardiovascular: Antilipid - HMG-CoA Reductase Inhibitors Oouptd5708/08/2023 08:44 AM Protocol Details Valid encounter within last 12 months Total Cholesterol within 360 days LDL within 360 days HDL within 360 days Triglycerides within 360 days AST in normal range and within 360 days ALT in normal range and within [address] [facility] HospitalQuopdc5290-65-60 07:33:22 Last Refilled: Disp Refills Start End ÁGNEL montelukast 10 mg tablet 30 tablet 0 06/16/2023 -- No Sig: Take 1 tablet by mouth in the morning. Sent to pharmacy as: montelukast 10 mg tablet (SINGULAIR) Class: eRX Route: Oral Order: [id number] Date/Time Signed: 06/16/2023 16:19 E-Prescribing Status: Receipt confirmed by pharmacy (06/16/2023 4:20 PM CDT Recent Visits Date Type Provider Dept 06/23/23 Office Visit Ilya Swain MD [facility] 06/16/23 Office Visit Alanis Garrett PA [facility] 03/30/23 Office Visit Ana De Leon MD [facility] 12/29/22 Office Visit Ayaka De Guzman FNP [facility] 09/01/22 Office Visit Ilya Swain MD [facility] 08/26/22 Office Visit Paula Ellis FNP [facility] 07/27/22 Office Visit Ilya Swain MD [facility] 07/14/22 Office Visit Ilya Swain MD [facility] 07/05/22 Office Visit Gab Ayaka, AIRPORT SHUTTLE DRIVER [facility] Showing recent visits within past 540 days with a meds authorizing provider and meeting all other requirements Future Appointments No visits were found meeting these conditions. Showing future appointments within next 150 days with a meds authorizing provider and meeting all other requirements [facility] CenterKiktzb3814-17-71 15:14:15 Please review and advise SILVIA 06/16/23 [facility] CenterWidwjj5136-59-78 15:13:43 Copied from [facility] #[id number]. 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 Pt states he still has a sinus infection and chest congestion. Aretha Parker 06/21/23 3:13 PM Aretha ParkerAdena Fayette Medical CenterVofqes7603-44-69 10:30:[address] Haines wanting labs instead of Tami but it is too soon to pull orders per expected collection date. Patient states he will come back in June. Sona MorganAdena Fayette Medical CenterRbjelo9386-05-23 19:05:26 Blood pressure log reviewed. Blood pressure within acceptable stable limits. Continue the current cardiac medications without any further changes. [place] [id number] 16:59:36 SILVIA 03/01/2023 "HTN: Elevated at the time of admission. Recommended goal blood pressure less than 140/90. Since starting on Lasix at the time of discharge 01/2023, discontinuing hydrochlorothiazide 12.5 daily. Continue with lisinopril 10 mg daily and Toprol-XL 25 daily. Previously on Lisinopril/HCTZ 10/12.5 mg daily. Home BP log recommended. Goals BP < 130/80 stressed. Explained if BP > 130/80, adviced to send us the log. Lifestyle modifications stressed." T Darcie Antonio [place] [id number] 07:58:12 Refill request for HCTZ was denied. We have not prescribed this medication since 2022. Request for patient to contact office. [facility] Vianca Chapman [place] 43310-03-21 22:06:55 Blood pressure log reviewed. Most of the lumbars are below 135/85 consistently. 1 regarding elevated blood pressure noted. Continue with the current cardiac medications without any further changes. Repeat blood pressure log in 2 more weeks. [place] [id number] 14:53:29 Images from the original note were not included. Pt states yes read results via UTOPY. Will discuss with daughter whom is a nurse. States has been doing a BP long since sat. Will increase lipitor and call office once ready for new Rx /dose to be called in. Will finish the 10mg tabs first. States Dr. Pittman is his pulm. I will fax report to him for scheduling follow up. Will place repeat labs orders now. Pt miguel to be fasting when goes in 2mo. All verbally understood. Rossi Haines MD P Cardiology Nurse Cardiac CTA shows calcium score of 524. RCA/branches shows mild stenosis on the whole. Circumflex/branches proximal segment shows moderate stenosis. LAD/branches shows mild stenosis. Left main shows mild ostial stenosis. 3 mm pulmonary nodule noted along with emphysematous changes in the lungs visualized in the cardiac CTA. Recommended pulm evaluation if not being evaluated Nahid. I can place a referral if need arises. Currently with aspirin 81 daily along with Lipitor 10 mg daily. Recommend aggressive lifestyle modification keeping the LDL in 40s and 50s. Recommend to increase Lipitor from 10 mg daily to 20 mg daily. Recommended to send us a blood pressure log to make sure the goal home blood pressure is less than 130/80 consistently. Repeat lipid panel in around 2 months time after increasing the dose of Lipitor. If the patient wants to discuss further please make earlier follow-up with me. If not I will see him as planned. [facility] - [id number] 09:10:00 Summary: Nursing Documentation for Cardiac Coronary CTA Nursing Documentation for Cardiac Coronary CTA Patient Queenie Nieves is here on for Cardiac Coronary CT. Diagnosis is chest pain CHF. Patient states caffeine in 24 hours, no use of Cialis, Viagra, Stendra, or Levitra within 24 hours. Initial VS taken at 0832 B/P 131/80 , HR 72, Respirations 22, Sats 99. A 20 gauge IV was placed in right A/C. Per outpatient cardiac coronary CT protocol, Metoprolol 100 mg po was given at 0832, HR 72. At 0902, B/P is 133/76, HR 67. Metoprolol 50 mg po given. At 0900, patient was taken to CT and placed on supervisor hot dip tinning showing cardiac rhythm SR. HR is 62 At 0910, B/P is 130/76, and Nitroglycerin 0.8 mg SL was given. After CT, patient was monitored, and at discharge VS were: Time B/P 107/59, HR 74, Resp 20 Sats 99. IV was D/C'd and a clean, dry, dressing was placed. Pt denies dizziness, chest pain, or shortness of breath and was discharged in stable condition. [place] [id number] 14:49:14 Please review and advise. Patient last seen on 03/30/23 for Viral URI [place] [id number] 14:45:21 Queenie Nieves is a 72 year old male calling in requesting additional medication to assist with ongoing congestion.Please advise [facility] Kirit HodgeAdena [facility] [id number] 08:21:21 Images from the original note were not included. Called patient for results patient verbalized understanding with no further questions Rossi Haines MD P Cardiology Nurse Echocardiogram shows preserved LV systolic function. Normal RV size and function noted. No significant valve normalities noted. Recommended proceeding with cardiac CTA. Orders placed. [facility] Stephany Mullins MAAdena Fayette Medical CenterIzwzzh6604-03-06 14:14:07 Images from the original note were not included. LVM to call clinic with concerns/questions. Patient is mychart active, message placed on UTOPY Rossi Haines MD P Cardiology Nurse BMP back to baseline at 184. Potassium mildly elevated 5.1. Rest of the BMP within acceptable limits. He may stop taking KCl 10 mg daily. Recommended take Lasix/KCl as needed based upon the leg swelling. Plan to proceed with echocardiogram as already scheduled next week. [facility] Dunia Castañeda [place] [id number] 11:00:00 Images from the original note were not included. Venipuncture collection performed by clean technique on the left anticubitus. Total of 1 attempts were made. Slight pressure and a bandage/dressing were applied to the site(s). The patient experienced no complications. The following specimens were processed according to instructions and sent to [facility] laboratories per lab order on 03/01/2023 : LT BLUE SST 1 RED LAV PPT DK GREEN (LiHep) DK GREEN (SodH) HERNANDEZ DK BLUE (K2) DK BLUE (S) ACD Blood Culture NIPT/NTD Dr haines orders to be done per pt request [place] [id number] 10:00:00 Addended by: ROSSI HAINES on: 03/15/2023 08:48 AM Modules accepted: Orders [place] [id number] 00:00:00 Problem: Discharge Planning Goal: Adequate for discharge Outcome: Progressing as expected Problem: Fluid Volume Excess Goal: Absence of fluid overload signs and symptoms Outcome: Progressing as expected Problem: Pain Goal: Control of pain at or below patient's documented comfort goal Outcome: Progressing as expected Goal: Reduction in pain sensation Outcome: Progressing as expected [facility] Steve Gonzalez [place] [id number] 17:59:22 Report given to HARPER Cotton MedSurg [facility] Diana [facility]idro [facility] 13:08:54 Patient states "my leg is swelled up, it is about twice the size it should be. And shortness of breath." Patient c/o swelling in the right lower leg and shortness of breath. States that he has COPD, but shortness of breath is worse than normal. AGE CLERK Fernando Gamez [facility]ym[facility]98[facility] 13:02:00 Images from the original note were not included. 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 And shortness of breath." Patient c/o swelling in the right lower leg and shortness of breath. States that he has COPD, but shortness of breath is worse than normal. HPI History provided by: Patient Shortness of Breath Severity: Moderate Onset quality: Gradual Duration: 2 days Timing: Constant Chronicity: New Relieved by: Rest Worsened by: Exertion Associated symptoms: no abdominal pain, no chest pain, no cough, no fever, no headaches, no vomiting and no wheezing Past Medical History / Immunizations Past Medical History: Diagnosis Date Arthritis Chronic neck pain Depression Essential hypertension 07/24/2016 Mild hypercholesterolemia 12/02/2021 Other seasonal allergic rhinitis 10/16/2015 Tetanus received in last 5 years: Unknown Childhood immunizations: Up-to-date Past Surgical History Past Surgical History: Procedure Laterality Date AMPUTATION FOOT,MIDTARSAL-CHOPART Left ANTERIOR CERVICAL FUSION Allergies No Known Allergies Social History Tobacco Use Former; Cigarettes: Quit 02/26/2014 Smokeless Tobacco: Never used smokeless tobacco. Alcohol Use Yes; 2.0 standard drinks of alcohol per week; 2 Cans of beer. Comments: daily Drug Use No. Review of Systems Review of Systems Constitutional: Negative. Negative for chills, fatigue, fever and unexpected weight change. HENT: Negative. Eyes: Negative. Negative for discharge and itching. Respiratory: Positive for shortness of breath. Negative for cough, chest tightness and wheezing. Cardiovascular: Negative. Negative for chest pain and palpitations. Gastrointestinal: Negative. Negative for abdominal distention, abdominal pain, nausea and vomiting. Genitourinary: Negative. Negative for dysuria, urgency, frequency and flank pain. Musculoskeletal: Negative. Skin: Negative. Negative for color change, pallor and wound. Neurological: Negative. Negative for dizziness, syncope, light-headedness and headaches. Psychiatric/Behavioral: Negative. Negative for agitation and behavioral problems. All other systems reviewed and are negative. Endocrine: Endocrine negative Physical Exam ED Triage Vitals [02/11/23 1310] Weight 77.1 kg (170 lb) Actual or estimated Height 1.778 m (5' 10") BP (!) 168/85 Pulse 64 Resp 20 Temp 36.7 ?C (98.1 ?F) Temp source Oral SpO2 98 % Measured on Room air Physical Exam Vitals reviewed. Constitutional: Appearance: He is well-developed. HENT: Head: Normocephalic. Nose: Nose normal. Eyes: Conjunctiva/sclera: Conjunctivae normal. Neck: Trachea: No tracheal deviation. Cardiovascular: Rate and Rhythm: Normal rate. Heart sounds: Normal heart sounds. No murmur heard. No friction rub. Pulmonary: Effort: Pulmonary effort is normal. No respiratory distress. Breath sounds: Normal breath sounds. Abdominal: General: Bowel sounds are normal. There is no distension. Palpations: Abdomen is soft. Tenderness: There is no abdominal tenderness. There is no guarding or rebound. Musculoskeletal: General: Normal range of motion. Cervical back: Normal range of motion and neck supple. Right lower leg: Edema present. Comments: LLE prosthesis Skin: General: Skin is warm and dry. Neurological: Mental Status: He is alert and oriented to person, place, and time. Psychiatric: Behavior: Behavior normal. Labs Lab Results CBC WITH DIFF - Abnormal Result Value Ref Range WBC 7.58 4.20 - 10.70 10*3/?L RBC 3.74 (*) 4.26 - 5.52 10*6/?L HGB 11.5 (*) 12.2 - 16.4 g/dL HCT 34.5 (*) 38.4 - 49.3 % MCV 92.2 81.7 - 95.6 fL MCH 30.7 26.1 - 32.7 pg MCHC 33.3 31.2 - 35.0 g/dL RDW-SD 43.5 38.5 - 51.6 fL RDW-CV 13.0 12.1 - 15.4 % PLT 259 150 - 328 10*3/?L MPV 10.4 9.8 - 13.0 fL NRBC/100 WBC 0.0 0.0 - 10.0 /100 WBCs NRBC x103<0.01 10*3/?L GRAN MAT (NEUT) % 63.5 % IMM GRAN % 0.40 % LYMPH % 24.7 % MONO % 9.4 % EOS % 1.5 % BASO % 0.5 % GRAN MAT x103(ANC) 4.82 1.99 - 6.95 10*3/uL IMM GRAN x1030.03 0.00 - 0.06 10*3/uL LYMPH x1031.87 1.09 - 3.23 10*3/uL MONO x1030.71 0.36 - 1.02 10*3/uL EOS x1030.11 0.06 - 0.53 10*3/uL BASO x1030.04 0.01 - 0.09 10*3/uL COMP. METABOLIC PANEL (53543) - Abnormal NA 139 135 - 145 mmol/L K 3.1 (*) 3.5 - 5.0 mmol/L CL 105 98 - 108 mmol/L CO2 TOTAL 26 23 - 31 mmol/L AGAP 8 2 - 16 BUN 11 7 - 23 mg/dL GLUCOSE 137 (*) 70 - 110 mg/dL CREATININE 0.75 0.60 - 1.25 mg/dL TOTAL BILI 0.4 0.1 - 1.1 mg/dL CALCIUM 9.0 8.6 - 10.6 mg/dL T PROTEIN 6.8 6.3 - 8.2 g/dL ALBUMIN 4.2 3.5 - 5.0 g/dL ALK PHOS 68 34 - 122 U/L ALTv 32 5 - 50 U/L AST(SGOT) 35 13 - 40 U/L eGFR 95.3 mL/min/1.73m2 N-TERMINAL PRO-BNP - Abnormal NT-proBNP 1,220 (*) <=125 pg/mL TROPONIN I - Normal TROPONIN I 0.006 <=0.034 ng/mL Imaging XR CHEST 1 VW Final Result PROCEDURE: XR CHEST 1 VW 02/11/2023 2:02 PM CLINICAL INDICATION: dyspnea COMPARISON: None FINDINGS: The lungs are hyperexpanded with sparing of bronchovascular bundles. No focal opacity. Blunting of bilateral costophrenic angle are unchanged, and represent fat, as noted on prior CT. Scalloping of the right hemidiaphragm. There is no pleural effusion. No pneumothorax. The cardiac size is normal. No aggressive osseous lesion. IMPRESSION Lung emphysema. Orders and Treatments Orders Placed This Encounter Procedures XR CHEST 1 VW CBC WITH DIFF COMP. METABOLIC PANEL (03264) TROPONIN I N-TERMINAL PRO-BNP Consult Cardiology Orders Placed This Encounter Medications furosemide (LASIX) injection 40 mg Procedures EKG Time 1328 Rate 75 Normal sinus [place] normal RBBB No acute ischemia Abnormal EKG Notes & MDM Patient was evaluated for an emergency medical condition related to LEG SWELLING and Shortness of Breath DDX DVT PE CHF ACS Diagnosis/Impression as of 02/11/23 1641 Dyspnea, unspecified type Swelling of right lower extremity Acute congestive heart failure, unspecified heart failure type Hypervolemia, unspecified hypervolemia type Medical Decision Making Problems Addressed: Acute congestive heart failure, unspecified heart failure type: acute illness or injury Dyspnea, unspecified type: acute illness or injury Hypervolemia, unspecified hypervolemia type: acute illness or injury Swelling of right lower extremity: acute illness or injury Amount and/or Complexity of Data Reviewed Labs: ordered. Decision-making details documented in ED Course. Radiology: ordered and independent interpretation performed. Decision-making details documented in ED Course. ECG/medicine tests: ordered and independent interpretation performed. Decision-making details documented in ED Course. Risk Prescription drug management. Decision regarding hospitalization. Independent Interpretation by ED physician: Pulse Oximetry: is not hypoxic. Interpreted. Limitations to patient care and compliance: none. Assessment/Summary: The patient is a 72-year-old gentleman who presents for right lower extremity swelling. 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 He also admits to dyspnea on exertion. He also admits to orthopnea. No fever or cough. Ultrasound of the right lower extremity does not demonstrate a DVT. However, the patient has a new elevated BNP of 1200. Last month he had a normal BNP. Hematological and chemistry studies are within acceptable limits. Troponin is negative. EKG does not demonstrate a STEMI or any ectopy. The patient has new onset CHF. He was given Lasix here in the emergency department for diuresis. He will be admitted to the medicine service for further inpatient diuresis and cardiac workup. History, physical exam findings, results of visit, differential diagnosis, medication regimens and plan of future care have been considered. Additional MDM may be found in the ED course. Differential diagnosis considered and final disposition made based on information gathered during evaluation and may not be completely ruled out or specifically listed. Vital signs were rechecked before final disposition. Diagnosis Final diagnoses: [R06.00] Dyspnea, unspecified type (Primary) [M79.89] Swelling of right lower extremity [I50.9] Acute congestive heart failure, unspecified heart failure type [E87.70] Hypervolemia, unspecified hypervolemia type Disposition & Follow Up ED Disposition ED Disposition Admit - Observation Condition -- Comment Is (or was) this a planned re-admission?: No Treatment Team: [facility] [[id number]] Is this patient COVID positive or a patient under investigation (PUI)?: No Patient's Medications START taking these medications No medications on file CONTINUE taking these medications which have NOT CHANGED ACETAMINOPHEN-CODEINE 300-30 MG TABLET Take 1 tablet by mouth in the morning and 1 tablet at noon and 1 tablet in the evening. ACYCLOVIR 5 % OINTMENT Apply to area(s) 5 (five) times daily. ADVAIR DISKUS 250-50 MCG/DOSE INHALATION DISK INHALE 1 PUFF BY MOUTH TWICE DAILY ALBUTEROL 90 MCG/ACTUATION INHALER Inhale 2 Puffs every 6 (six) hours as needed for Wheezing. ATORVASTATIN 10 MG TABLET TAKE 1 TABLET BY MOUTH IN THE MORNING BENZONATATE (TESSALON PERLES) 100 MG CAPSULE Take 1 capsule by mouth every 8 (eight) hours as needed for Cough. BREZTRI AEROSPHERE 160-9-4.8 MCG/ACTUATION HFAA Take 2 Puffs by mouth in the morning and 2 Puffs in the evening. CIPROFLOXACIN HCL 500 MG TABLET TAKE 1 TABLET BY MOUTH EVERY 12 HOURS FOR 5 DAYS DICYCLOMINE 20 MG TABLET TAKE 1 TABLET BY MOUTH EVERY 12 HOURS NEEDED FOR ABDOMINAL CRAMPS GABAPENTIN 300 MG CAPSULE HYDROCHLOROTHIAZIDE 12.5 MG TABLET TAKE 1 TABLET BY MOUTH EVERY MORNING WITH LISINOPRIL 10 MG AT THE SAME TIME. HYDROCODONE-ACETAMINOPHEN 7.5-325 MG PER TABLET TAKE 1 TABLET BY MOUTH EVERY DAY NEEDED FOR 28 DAYS LISINOPRIL 10 MG TABLET TAKE 1 TABLET BY MOUTH EVERY MORNING MIRTAZAPINE 30 MG TABLET Take 1 tablet by mouth at bedtime. MONTELUKAST 10 MG TABLET Take 1 tablet by mouth in the morning. ONDANSETRON 8 MG DISINTEGRATING TABLET DISSOLVE ONE TABLET BY MOUTH EVERY 12 HOURS NEEDED FOR NAUSEA AND VOMITING PANTOPRAZOLE 40 MG EC TABLET TAKE 1 TABLET BY MOUTH IN THE MORNING SPIRIVA RESPIMAT 2.5 MCG/ACTUATION MIST INHALE 2 PUFFS BY MOUTH ONCE A DAY TRIAMCINOLONE ACETONIDE 0.1 % DENTAL PASTE by Dental route 2 (two) times daily. VALACYCLOVIR 1 GRAM TABLET Take 1 tablet by mouth in the morning and 1 tablet in the evening. 2 tablets PO Q12hrs x 1 day START taking Modified Medications as Prescribed No medications on file STOP taking these medications No medications on file Future Appointments In 9 months ADC CLINIC ECHO ROOM 1 [facility] Echocardiograph/Vascular Lab, [facility] In 9 months Rossi Haines MD [facility] Cardiology, [facility] Sheila Griffin Jr., MD Clinical Underbaster [facility] Emergency Department Dragon Dictation Software is used frequently and may produce errors. Promptly contact for obvious discrepancies. Sheila Griffin MD 02/11/233 Sheila Griffin MD 02/11/23 1644 [facility]2023-12-22 13:02:00 AdmissionCare Guideline: Systemic / Infectious Condition, Inpatient Based on the indications selected for the patient, the bed status of Admit to Inpatient was determined to be MET The following indications were selected as present at the time of evaluation of the patient: Edema (eg, of lower extremities) or lymphedema requiring inpatient care, as indicated by 1 or more of the following: - - Severe functional disability (eg, cannot perform activities of daily living (ADL), concern for patient safety) AdmissionCare documentation entered by: Sheila Griffin [facility], 27th edition, Copyright ? 2022 [facility] [employer] [facility] All Rights Reserved. [id number]:00 [facility]2023-09-05 10:17:31 Received refill request for: Medication: Requested Prescriptions Pending Prescriptions Disp Refills hydroCHLOROthiazide 12.5 mg tablet [Pharmacy Med Name: HYDROCHLOROTHIAZIDE 12.5MG TABLETS] 90 tablet 0 Sig: TAKE 1 TABLET BY MOUTH EVERY MORNING WITH LISINOPRIL 10 MG AT THE SAME TIME Requested Prescriptions Pending Prescriptions Disp Refills hydroCHLOROthiazide 12.5 mg tablet [Pharmacy Med Name: HYDROCHLOROTHIAZIDE 12.5MG TABLETS] 90 tablet 0 Sig: TAKE 1 TABLET BY MOUTH EVERY MORNING WITH LISINOPRIL 10 MG AT THE SAME TIME Cardiovascular: Misc. Diuretics Passed - 10/24/2022 11:55 AM Passed - Valid encounter within last 12 months Recent Visits Date Type Provider Dept 11/10/21 Office Visit Rossi Haines MD [facility] Cardiology Faculty Showing recent visits within past 365 days and meeting all other requirements Future Appointments Date Type Provider Dept 11/10/22 Appointment Rossi Haines MD [facility] Cardiology Faculty Showing future appointments within next 365 days and meeting all other requirements Passed - K in normal range and within 180 days K Date Value Ref Range Status 08/26/2022 4.3 3.5 - 5.0 mmol/L Final Potassium, Serum-LC Date Value Ref Range Status 09/16/2015 5.3 (H) 3.5 - 5.2 mmol/L Final Passed - Na in normal range and within 180 days NA Date Value Ref Range Status 08/26/2022 139 135 - 145 mmol/L Final Sodium, Serum-LC Date Value Ref Range Status 09/16/2015 139 134 - 144 mmol/L Final Passed - Cr in normal range and within 180 days CREATININE Date Value Ref Range Status 08/26/2022 0.74 0.60 - 1.25 mg/dL Final Creatinine, Serum-LC Date Value Ref Range Status 09/16/2015 0.66 (L) 0.76 - 1.27 mg/dL Final Recent Visits Date Type Provider Dept 11/10/21 Office Visit Rossi Haines MD [facility] Cardiology Faculty Showing recent visits within past 365 days and meeting all other requirements Future Appointments Date Type Provider Dept 11/10/22 Appointment Rossi Haines MD [facility] Cardiology Faculty Showing future appointments within next 365 days and meeting all other requirements Refilled approval sent to: Pharmacy: [id number] - [place], [place] - [address] AT [facility] & [address] [facility] [id number] [id number] - [place], [place] - [address] AT [address] [address] Refilled based on current protocol and last office visit note. Albina Christina 10/26/2022 10:17 AM Office Visit on 08/26/2022 Component Date Value WBC 08/26/2022 6.90 RBC 08/26/2022 3.86 (L) HGB 08/26/2022 12.0 (L) HCT 08/26/2022 35.9 (L) MCV 08/26/2022 93.0 MCH 08/26/2022 31.1 MCHC 08/26/2022 33.4 RDW-SD 08/26/2022 44.5 RDW-CV 08/26/2022 13.2 PLT 08/26/2022 324 MPV 08/26/2022 10.3 NRBC/100 WBC 08/26/2022 0.0 NRBC x10^3 08/26/2022 <0.01 GRAN MAT (NEUT) % 08/26/2022 64.5 IMM GRAN % 08/26/2022 0.60 LYMPH % 08/26/2022 21.2 MONO % 08/26/2022 11.2 EOS % 08/26/2022 1.6 BASO % 08/26/2022 0.9 GRAN MAT x10^3(ANC) 08/26/2022 4.46 IMM GRAN x10^3 08/26/2022 0.04 LYMPH x10^3 08/26/2022 1.46 MONO x10^3 08/26/2022 0.77 EOS x10^3 08/26/2022 0.11 BASO x10^3 08/26/2022 0.06 NA 08/26/2022 139 K 08/26/2022 4.3 CL 08/26/2022 104 CO2 TOTAL 08/26/2022 27 AGAP 08/26/2022 8 BUN 08/26/2022 16 GLUCOSE 08/26/2022 92 CREATININE 08/26/2022 0.74 TOTAL BILI 08/26/2022 0.4 CALCIUM 08/26/2022 9.2 T PROTEIN 08/26/2022 6.4 ALBUMIN 08/26/2022 3.8 ALK PHOS 08/26/2022 46 ALTv 08/26/2022 43 AST(SGOT) 08/26/2022 37 eGFR 08/26/2022 104.0 [facility] [place]1739-90-12 11:53:18 I filled those out this morning, in my box. [facility]2023-07-26 10:56:06 Priyanka with [employer] calling in to check on forms that were faxed for patients prosthetic needs per Priyanka the forms were faxed on 09/02/22 and again on 09/10/20 with confirmations [phone].Please advise [facility] Kirit HodgeAdena [facility]ayette Medical CenterSzsplu1620-67-36 09:29:55 Annual Wellness Visit - Pre Visit Outreach 09/08/22 Patient name: Queenie Nieves [facility] outreach regarding Annual Wellness Visit. Call outcome: no call HRA outcome: sent via UTOPY Eligibility: Rj CARBONE initial ok after 02/22/2016 [facility] Maintenance Team Simon Camara [facility]2015-04-20 14:03:55* EXAM: Chest 2 views HISTORY: Coughing COMPARISON: None The heart size is normal and the lungs are clear. There is no pleural effusionor pneumothorax. Mild discogenic degenerative changes are noted. IMPRESSION: No acute abnormality. [facility]2015-04-20 14:03:55EXAM: Chest 2 views HISTORY: Coughing COMPARISON: None The heart size is normal and the lungs are clear. There is no pleural effusion or pneumothorax. Mild discogenic degenerative changes are noted.
[2024-05-18] MEDS ORDERED: CALCIUM GLUCONATE 1 GM IVPB 1 GM/50 ML BAG IV ONE (13:32)
[2024-05-18 13:52] LABS: Absolute Basophils 0.1 K/uL (0-0.5); Absolute Eosinophils 0.1 K/uL (0-0.5); Absolute Lymphocytes (CBC) 1.8 K/uL (0.7-4.9); Absolute Monocytes 1.2 K/uL (0.1-1.3); Absolute Neutrophil 6.7 K/uL (1.8-8.0); Eosinophils % 0.8 % (0-4.4); Hemoglobin 11.7 g/dL (13.6-17.9); Lymphocytes % 18.2 % (15.3-44.8); MCH 29.9 pg (27.0-35.0); MCHC 33.4 g/dL (32.0-36.0); MCV 89.6 fL (80-100); Monocytes % 12.2 % (3.3-12.3); Neutrophils % 67.8 % (41.7-73.7); Nucleated Red Blood Cells % 0.1 % (0-0); Platelets 319 thou/uL (152-406); RBC Red Blood Cell Count 3.91 M/uL (4.33-5.43); Red Cell Distribution Width 13.2 % (12.1-15.2)
[2024-05-18 14:11] LABS: Anion Gap 12.2 mEq/L (5.0-15.0); Potassium 5.2 mEq/L (3.5-5.1); Troponin High Sensitivity 5.4 pg/mL (<58.9)
--- NOTE | 2024-05-18 14:20 | EDPHYS ---
Physician Documentation [facility] Name: Jeol Nieves Age: 73 yrs Sex: Male : 1950 Arrival Date: 05/18/2024 Time: 12:48 Bed 8 Private MD: ED Physician Melissa Morataya HPI: 05/18 13:44 This 73 yrs old Male presents to ER via Ambulatory with complaints of Abnormal Lab sp3 Results. 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 Persaud's office for outpatient potassium of 6.2 for recheck and treatment if indicated. Patient has no complaints whatsoever. He is currently being worked up for unknown cancer. He denies any fever, headache, neck pain, chest pain, shortness of breath, palpitation, syncope, near syncope, abdominal pain, nausea, vomiting, diarrhea or any other signs or symptoms on ROS at this time.. Historical: - Allergies: 13:03 No Known Allergies; ap3 - PMHx: 13:03 Hypercholesterolemia; Hypertensive disorder; emphysema (Hypertensive disorder); lung ap3 cancer dx (april 2024) (Hypertensive disorder); - Infectious Disease History:: Denies. - Social history:: Smoking status: Patient reports the use of cigarette tobacco products, cigars. ROS: 13:45 Constitutional: Negative for fever, chills, and weight loss, Eyes: Negative for injury, sp3 pain, redness, and discharge, ENT: Negative for injury, pain, and discharge, Neck: Negative for injury, pain, and swelling, Cardiovascular: Negative for chest pain, palpitations, and edema, Respiratory: Negative for shortness of breath, cough, wheezing, and pleuritic chest pain, Abdomen/GI: Negative for abdominal pain, nausea, vomiting, diarrhea, and constipation, Back: Negative for injury and pain, MS/Extremity: Negative for injury and deformity, Skin: Negative for injury, rash, and discoloration, Neuro: Negative for headache, weakness, numbness, tingling, and seizure, Psych: Negative for depression, anxiety, suicide ideation, homicidal ideation, and hallucinations, Allergy/Immunology: Negative for hives, rash, and allergies, Endocrine: Negative for neck swelling, polydipsia, polyuria, polyphagia, and marked weight changes, Hematologic/Lymphatic: Negative for swollen nodes, abnormal bleeding, and unusual bruising, 13:45 All other systems are negative, Exam: 13:45 Constitutional: This is a well developed, well nourished patient who is awake, alert, sp3 and in no acute distress. Head/Face: Normocephalic, atraumatic. Eyes: Pupils equal round and reactive to light, extra-ocular motions intact. Lids and lashes normal. Conjunctiva and sclera are non-icteric and not injected. Cornea within normal limits. Periorbital areas with no swelling, redness, or edema. ENT: Nares patent. No nasal discharge, no septal abnormalities noted. External auditory canals are clear. Oropharynx with no redness, swelling, or masses, exudates, or evidence of obstruction, uvula midline. Mucous membranes moist. Neck: Trachea midline, no thyromegaly or masses palpated, and no cervical lymphadenopathy. Supple, full range of motion without nuchal rigidity, or vertebral point tenderness. No Meningismus. Chest/axilla: Normal chest wall appearance and motion. Nontender with no deformity. No lesions are appreciated. Cardiovascular: Regular rate and rhythm with a normal S1 and S2. No gallops, murmurs, or rubs. Normal PMI, no JVD. No pulse deficits. Respiratory: Lungs have equal breath sounds bilaterally, clear to auscultation and percussion. No rales, rhonchi or wheezes noted. No increased work of breathing, no retractions or nasal flaring. Abdomen/GI: Soft, non-tender, with normal bowel sounds. No distension or tympany. No guarding or rebound. No evidence of tenderness throughout. Back: No spinal tenderness. No costovertebral tenderness. Full range of motion. Skin: Warm, dry with normal turgor. Normal color with no rashes, no lesions, and no evidence of cellulitis. MS/ Extremity: Pulses equal, no cyanosis. Neurovascular intact. Full, normal range of motion. Neuro: Awake and alert, GCS 15, oriented to person, place, time, and situation. Cranial nerves II-XII grossly intact. Motor strength 5/5 in all extremities. Sensory grossly intact. Cerebellar exam normal. Normal gait. Psych: Awake, alert, with orientation to person, place and time. Behavior, mood, and affect are within normal limits. 13:45 ECG was reviewed by the Attending Physician. EKG demonstrates normal sinus rhythm at 90 bpm with normal intervals, normal QRS, normal axis, normal ST/T-segment's without evidence of acute ischemia. No peaked T's noted. Vital Signs: 13:01 BP 140 / 60; Pulse 103; Resp 18; Temp 97.9(O); Pulse Ox 100% on R/A; Weight 60.78 kg; ap3 Height 5 ft. 10 in. ; Pain 0/10; 14:11 BP 120 / 76; Pulse 88; Resp 18; Pulse Ox 99% on R/A; hb 13:01 Body Mass Index 19.23 (60.78 kg, 177.8 cm) ap3 13:01 Pain Scale: Adult ap3 MDM: 12:57 Medical Screening Exam initiated sp3 13:46 Data reviewed: vital signs, nurses notes, lab test result(s), EKG. ED course: Will go sp3 ahead and give calcium gluconate while labs are pending. EKG shows no peaked T's or other hyperkalemia type changes. Further intervention if indicated. Currently patient is asymptomatic and stable. Differential diagnosis includes hyperkalemia versus other electrolyte abnormality versus lab error.. 14:19 ED course: Potassium for us is at 5.2. Probable hemolysis versus other lab issue on sp3 earlier draw. We will safely discharge patient home at this time.. 05/18 13:15 Order name: Basic Metabolic Panel; Complete Time: 14:19 sp3 05/18 13:15 Order name: CBC with Diff; Complete Time: 14:19 sp3 05/18 13:15 Order name: Magnesium; Complete Time: 14:19 sp3 05/18 13:15 Order name: Troponin HS; Complete Time: 14:19 sp3 05/18 13:15 Order name: Cardiac monitoring; Complete Time: 13:50 sp3 05/18 13:15 Order name: EKG - Nurse/Tech; Complete Time: 13:50 sp3 05/18 13:15 Order name: IV Saline Lock; Complete Time: 13:50 sp3 05/18 13:15 Order name: Labs collected and sent; Complete Time: 13:50 sp3 Administered Medications: 14:37 Discontinued: calcium gluconate1 grams IVPB once over 60 mins; (mix in NS 100 mL) jb4 13:50 Drug: Calcium Gluconate IVPB 1 grams IVPB once over 60 mins; (mix in NS 100 mL) Route: jb4 IVPB; Infused Over: 60 mins; Site: right antecubital; Disposition Summary: 05/18/24 14:20 Discharge Ordered Notes: Location: Home sp3 Condition: Stable sp3 Diagnosis - Hyperkalemia, resolved sp3 Followup: sp3 - With: Private Physician - When: Upon discharge from the Emergency Department - Reason: Continuance of care Discharge Instructions: - Discharge Summary Sheet sp3 - Hyperkalemia sp3 Forms: - Medication Reconciliation Form sp3 - Antibiotic Education sp3 - Prescription Opioid Use sp3 - Patient Portal Instructions sp3 - Leadership Thank You Letter sp3 Signatures: Dispatcher [employer] EDYovany Srivastava RN RN jb4 Mitra Patel RN RN ap3 Melissa Morataya MD MD sp3 Corrections: (The following items were deleted from the chart) 13:05 13:03 PSHx: Left BKA; ap3 ap3 13:16 13:16 BASIC METABOLIC PANEL+C.LAB.BRZ ordered. EDMS EDMS 13:16 13:16 CBC+H.LAB.BRZ ordered. EDMS EDMS 13:16 13:16 MAGNESIUM+C.LAB.BRZ ordered. EDMS EDMS 13:16 13:16 Troponin High Sensitivity+C.LAB.BRZ ordered. EDMS EDMS
--- NOTE | 2024-05-18 14:20 | ER ---
Nurse's Notes [facility] Name: Joel Nieves Age: 73 yrs Sex: Male : 1950 Arrival Date: 05/18/2024 Time: 12:48 Bed 8 Private MD: Diagnosis: Hyperkalemia, resolved Presentation: 05/18 13:01 Chief complaint: Patient states: he was sent by his provider for abnormal lab results, ap3 which were drawn yesterday. patient has no complaints at this time. he reports he had pain earlier, but took his prescribed pain medications at approx 10:00. Coronavirus screen: At this time, the client does not indicate any symptoms associated with coronavirus-19. Ebola Screen: No symptoms or risks identified at this time. Initial Sepsis Screen: Does the patient meet any 2 criteria? HR > 90 bpm. Does the patient have a suspected source of infection? No. Patient's initial sepsis screen is negative. Risk Assessment: Do you want to hurt yourself or someone else? Patient reports no desire to harm self or others. Onset of symptoms is unknown. Transition of care: patient was not received from another setting of care. 13:01 Method Of Arrival: Ambulatory ap3 13:01 Acuity: ANABELLA 3 ap3 Triage Assessment: 13:05 General: Appears slender, Behavior is calm, cooperative, appropriate for age. Pain: ap3 Denies pain. Neuro: Level of Consciousness is awake, alert, obeys commands, Oriented to person, place, time, situation. Cardiovascular: Patient's skin is warm and dry. Respiratory: Airway is patent Respiratory effort is even, unlabored, Respiratory pattern is regular, symmetrical. Historical: - Allergies: 13:03 No Known Allergies; ap3 - PMHx: 13:03 Hypercholesterolemia; Hypertensive disorder; emphysema (Hypertensive disorder); lung ap3 cancer dx (april 2024) (Hypertensive disorder); - Infectious Disease History:: Denies. - Social history:: Smoking status: Patient reports the use of cigarette tobacco products, cigars. Screenin:06 Abuse screen: Denies threats or abuse. Nutritional screening: Had unintentional weight ap3 loss of 10 pounds or more. Tuberculosis screening: No symptoms or risk factors identified. 14:37 [facility] ED Fall Risk Assessment (Adult) History of falling in the last 3 months, jb4 including since admission No falls in past 3 months (0 pts) Confusion or Disorientation No (0 pts) Intoxicated or Sedated No (0 pts) Impaired Gait No (0 pts) Mobility Assist Device Used No (0 pt) Altered Elimination No (0 pt) Score/Fall Risk Level 0 - 2 = Low Risk Oriented to surroundings, Maintained a safe environment. Assessment: 14:37 Reassessment: Patient appears in no apparent distress at this time. Patient and/or jb4 family updated on plan of care and expected duration. Pain level reassessed. Patient is alert, oriented x 3, equal unlabored respirations, skin warm/dry/pink. Vital Signs: 13:01 BP 140 / 60; Pulse 103; Resp 18; Temp 97.9(O); Pulse Ox 100% on R/A; Weight 60.78 kg; ap3 Height 5 ft. 10 in. ; Pain 0/10; 14:11 BP 120 / 76; Pulse 88; Resp 18; Pulse Ox 99% on R/A; hb 13:01 Body Mass Index 19.23 (60.78 kg, 177.8 cm) ap3 13:01 Pain Scale: Adult ap3 ED Course: 12:51 Patient arrived in ED. im 12:51 Melissa Morataya MD is Attending Physician. sp3 13:03 Triage completed. ap3 13:05 Patient has correct armband on for positive identification. Placed in gown. Bed in low ap3 position. Call light in reach. Side rails up X 1. Client placed on continuous cardiac and pulse oximetry monitoring. NIBP monitoring applied. tower hoist operator on. Pulse ox on. NIBP on. Door closed. Noise minimized. Warm blanket given. 13:06 Arm band placed on right wrist. ap3 13:45 Inserted saline lock: 20 gauge in right antecubital area, using aseptic technique. jb4 13:50 Basic Metabolic Panel Sent. jb4 13:50 CBC with Diff Sent. jb4 13:50 Magnesium Sent. jb4 13:50 Troponin HS Sent. jb4 14:11 Alix Cardoza, RN is Primary Nurse. hb 14:37 Provided Education on: discharge instructions. jb4 14:37 No provider procedures requiring assistance completed. IV discontinued, intact, jb4 bleeding controlled, No redness/swelling at site. Pressure dressing applied. Administered Medications: 14:37 Discontinued: calcium gluconate1 grams IVPB once over 60 mins; (mix in NS 100 mL) jb4 13:50 Drug: Calcium Gluconate IVPB 1 grams IVPB once over 60 mins; (mix in NS 100 mL) Route: jb4 IVPB; Infused Over: 60 mins; Site: right antecubital; Medication: 14:37 VIS not applicable for this client. jb4 Outcome: 14:20 Discharge ordered by . sp3 14:37 Discharged to home ambulatory, jb4 14:37 Condition: stable 14:37 Discharge instructions given to patient, Instructed on discharge instructions, follow up and referral plans. Demonstrated understanding of instructions, follow-up care, 14:39 Patient left the ED. jb4 Signatures: Alix Cardoza RN RN Yovany Lombardi RN RN jb4 Mitra Patel RN RN ap3 Melissa Morataya MD MD sp3 Paola Lujan im Corrections: (The following items were deleted from the chart) 13:05 13:03 PSHx: Left BKA; ap3 ap3 13:51 13:50 Calcium Gluconate IVPB 1 grams IVPB in right forearm over 60 mins jb4 jb4
[2024-05-18 15:13] VITALS: TEMP 97.9
[2024-05-18 15:19] VITALS: BP 120/76; O2SAT 99
--- NOTE | 2024-05-21 11:28 | EKG ---
Test Date: 2024-05-18 Test Time: 13:42:14 Quality Assurance Associate: HB MEASUREMENT RESULTS: Intervals: Rate: 89 IN: 124 QRSD: 94 QT: 372 QTc: 452 [place]: P: 86 IN: 124 QRS: 91 T: 79 INTERPRETIVE STATEMENTS: Sinus rhythm with premature atrial complexes Otherwise normal ECG No previous ECG available for comparison Electronically Signed On 05-21-24 11:22:09 CDT by Lukas White
== END 2024-05-18 14:39 | disposition home or self-care (01) ==
LOC: ER 12:48
DX: E87.5 Hyperkalemia (principal); Z72.0 Tobacco use
CPT/HCPCS: 93005; 85025; 80048; 36415; 83735; 84484; 96374; 99285; J0612

== ENCOUNTER 2024-05-30 08:40 | Day surgery (SDC) | payer OTHER ==
[2024-05-30] MEDS ORDERED: FLUMAZENIL 0.1 MG/ML (5 mL VIAL) IV ONE (09:21)
[2024-05-30] MEDS ORDERED: MIDAZOLAM HCL 2 MG/2 ML INJ ONE (09:21)
[2024-05-30] MEDS ORDERED: ONDANSETRON 4 MG/2 ML VIAL ONE (09:22)
[2024-05-30] MEDS ORDERED: FENTANYL CITR 100 MCG/2 ML ONE (09:22)
[2024-05-30] MEDS ORDERED: Ringers Lactate 0 ML IV ONE (09:22)
[2024-05-30] MEDS ORDERED: NALOXONE HCL 2 MG/2 ML VIAL ONE (09:22)
[2024-05-30] MEDS ORDERED: Ringers Lactate 1,000 ML IV ONE (10:16)
[2024-05-30 10:25] VITALS: O2SAT 99; BMI 19.3
[2024-05-30] MEDS: HYDROCODONE/APAP 7.5/325 MG TAB ONE (11:29)
--- NOTE | 2024-05-30 11:31 | RAD REPORT ---
EXAMINATION: Liver Biopsy Perc CT INDICATION: LIVER MASSES Pre-procedure diagnosis: Liver masses Post-procedure diagnosis: Same as above. COMPLICATIONS: No immediate complications. PROCEDURE DETAILS: Consent: Informed consent for the procedure was obtained following discussion of the risks, benefits and alternatives with the patient. Time-out was performed prior to the procedure. Sedation: Moderate sedation (conscious sedation) Administered by: Nurse, or other independent traine d observer, with level of consciousness and vital signs continuously monitored. Total sedation administered: 1 mL Versed and 75 mcg Fentanyl. Total intra-service sedation time: 45 minutes. Biopsy: The area was prepped and draped in the usual sterile fashion. Initial scanning revealed multi ple masses in the liver. Local anesthesia was administered. Under CT guidance, an 17 gauge biopsy needle was advanced to the target and biopsy was performed. Number of specimens/passes: 3 Additional sampling description: None. Preliminary assessment of sample adequacy: Not applicable. The biopsy needle was removed and a sterile dressing was applied. Post-biopsy imaging findings: No immediate complications seen. Estimated blood loss: Less than 10 mL. IMPRESSION: Technically successful CT-guided biopsy of liver masses.
[2024-05-30 14:48] VITALS: BP 115/58; TEMP 98
== END 2024-05-30 13:10 | disposition home or self-care (01) ==
LOC: DS 08:40
PROVIDERS: ATTEND Internal Medicine Sleep Medicine
DX: C77.8 Secondary and unspecified malignant neoplasm of lymph nodes of multiple regions (principal)
CPT/HCPCS: 88307; 47000; J2250; J3010; J7120; J2310; J2405

== ENCOUNTER 2024-06-18 07:34 | Day surgery (SDC) | payer OTHER ==
[2024-06-18] MEDS ORDERED: NS 0.9% VIAL 20 ML ONE (07:48)
[2024-06-18] MEDS ORDERED: HEPARIN 5000 UNIT/ML 1 ML VIAL ONE (07:49)
[2024-06-18] MEDS ORDERED: propofoL 200 MG/20 ML VIAL IV ONE (08:08)
[2024-06-18] MEDS ORDERED: LIDOCAINE 2% MPF 5 ML VIAL ONE (08:08)
[2024-06-18] MEDS ORDERED: FENTANYL CITR 100 MCG/2 ML ONE (08:09)
[2024-06-18 08:23] LABS: Absolute Basophils 0.1 K/uL (0-0.5); Absolute Lymphocytes (CBC) 2.2 K/uL (0.7-4.9); Absolute Monocytes 1.8 K/uL (0.1-1.3); Absolute Neutrophil 11.8 K/uL (1.8-8.0); Basophils % 0.3 % (0-1.3); Eosinophils % 0.3 % (0-4.4); Hematocrit 32.5 % (39.6-49.0); Hemoglobin 10.8 g/dL (13.6-17.9); Lymphocytes % 13.9 % (15.3-44.8); MCH 30.2 pg (27.0-35.0); MCHC 33.2 g/dL (32.0-36.0); MCV 90.9 fL (80-100); MPV 8.6 fL (7.6-11.3); Monocytes % 11.3 % (3.3-12.3); Neutrophils % 74.2 % (41.7-73.7); Nucleated Red Blood Cells % 0.1 % (0-0); Platelets 234 thou/uL (152-406); RBC Red Blood Cell Count 3.58 M/uL (4.33-5.43); Red Cell Distribution Width 14.1 % (12.1-15.2)
[2024-06-18] MEDS: Ringers Lactate 1,000 ML IV ONE (08:35)
[2024-06-18] MEDS: CEFAZOLIN SODIUM 2 GM/VIAL ONE (08:42)
[2024-06-18] MEDS: BUPIVACAINE 0.5% PF 10 ML VIAL ONE (08:42)
[2024-06-18 08:51] LABS: Albumin 3.1 g/dL (3.4-5.0); Albumin/Globulin Ratio 0.8 (1.1-1.8); Anion Gap 14.8 mEq/L (5.0-15.0); Bilirubin Total 0.6 mg/dL (0.2-1.0); Globulin 3.8 g/dL (2.3-3.5); Potassium 5.8 mEq/L (3.5-5.1); Protein, Total 6.9 g/dL (6.4-8.2)
[2024-06-18] MEDS ORDERED: Phenylephrine HCl 10 MG/ML 1 ML VIAL ONE (09:16)
[2024-06-18] MEDS ORDERED: ONDANSETRON 4 MG/2 ML VIAL ONE (09:49)
[2024-06-18] MEDS ORDERED: dexAMETHasone 4 MG/ML VIAL ONE (09:49)
[2024-06-18] MEDS ORDERED: Mastisol Adhesive Liq ONE (09:58)
--- NOTE | 2024-06-18 10:20 | P.OP ---
Date of Service: 06/18/24 Preop diagnosis: Metastatic lung cancer Postop diagnosis: Same Procedure performed: Placement of right IJ Port-A-Cath device, interpretation of Doppler and fluoroscopy Surgeon: Dada Morrell MD Mastercam Programmer: None Estimated blood loss: Minimal Specimen: None Findings: Normal anatomy Anesthesia: General Complications: None Drains: None Fluids and blood products: Nonapplicable Disposition: Recovery room Operative note: Patient brought to the OR and placed in the supine position. General anesthesia began. Patient prepped and draped in usual sterile fashion. Marcaine 0.5%. Locally. Doppler device used to isolate the right internal jugular vein. 18-gauge needle used to access the right internal jugular vein and guidewire passed with verification of the position with fluoroscopy. 3 cm counterincision made. Pocket created. Tunneling device used to tunnel the catheter between the 2 wounds. Seldinger technique used to place the tip of the catheter at the SVC right atrial junction. Catheter cut to appropriate size and attached to the Port-A-Cath device. Port-A-Cath device attached to the subcutaneous tissue with 3-0 Vicryl. 3-0 chromic used to approximate subcutaneous tissue and close skin. Port flushed with heparin and packed with heparin with good blood flow. Sterile dressing applied. Patient awakened and taken to recovery room in good general condition. Chest x-ray has been ordered CC: Dr. Persaud'zulma
--- NOTE | 2024-06-18 10:46 | RAD REPORT ---
EXAM: Fluoroscopy use, Fluoroscopy <1 Hour HISTORY: PORT A CATH PLCMNT COMPARISON: None FINDINGS: Multiple images were sent to PACS, during a fluoroscopically guided procedure. No radiologi st was involved in protocoling or performance of the study, and no radiologist was present for the duration of the procedure. No interpretation of the saved images will be provided. Total fluoroscopy time: 0.4. IMPRESSION: Documentation of fluoroscopy use as above. Transcribed Date/Time: 06/18/2024 10:45 AM
--- NOTE | 2024-06-18 10:52 | RAD REPORT ---
EXAMINATION: ONE VIEW CHEST XR CLINICAL INDICATION: S/P PORT A CATH TECHNIQUE: Frontal chest projection is submitted. Examination is limited by patient positioning and t echnique. COMPARISON: No prior exam. FINDINGS: Diffuse emphysema is seen. The heart is normal in size. Right-sided port catheter is tip in the SVC. No pneumothorax. IMPRESSION: No postprocedure pneumothorax.
[2024-06-18 12:00] VITALS: BP 122/60; TEMP 97; O2SAT 99
== END 2024-06-18 11:40 | disposition home or self-care (01) ==
LOC: OR 07:34
PROVIDERS: ATTEND Surgery
PROC: 0JH60WZ Insertion of Totally Implantable Vascular Access Device into Chest Subcutaneous Tissue and Fascia, Open Approach (ICD-10-PCS; principal; 2024-06-18 09:15)
DX: C34.12 Malignant neoplasm of upper lobe, left bronchus or lung (principal)
CPT/HCPCS: 36561; 85025; 36415; 80053; 71045; J1644 ×2; A4216; J2704; J1100; J2371; J2003; J3010; J2405; J7120; C1788; 76000